=== PATIENT | female | born 1995 | race Caucasian/White ===

== ENCOUNTER 2019-04-03 13:39 | Inpatient (IN) ==
[2019-04-03] MEDS ORDERED: 0.9 % SODIUM CHLORIDE 1,000 ML IV ONE ×2 (14:54→14:56)
[2019-04-03] MEDS ORDERED: ONDANSETRON 4 MG/2 ML VIAL IV ONE (14:56)
--- NOTE | 2019-04-03 14:59 | Emergency Department Note ---
General Adult HPI - General Chief complaint: Cold/Flu Symptoms Stated complaint: cold/flu Time Seen by Provider: 04/03/19 14:49 Source: patient Mode of arrival: ambulatory Limitations: no limitations - History of Present Illness HPI Narrative: 23-year-old female patient presents emergency department chief complaint of worsening nausea, vomiting, and generalized malaise x3 days. Patient tells me she is vomited 67 times daily. She has not been able to keep anything down. She denies eating any foul or suspicious foods prior to symptom onset. She de nies any other sick contacts at home. She denies any fever, sweats, chills. She denies any satiation, runny nose, or cough. She denies any shortness of breath. She denies any retrosternal chest pain or palpitations. She admits to some generalized abdominal pain. She denies diarrhea or constipation. She denies any dysuria or hematuria. 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 This is resulted in her having a shunt in place. - Related Data Allergies Allergy/AdvReac Type Severity Reaction Status Date / Time No Known Drug Allergies Allergy Unverified 04/03/19 13:44 Review of Systems All systems ED: reviewed and negative except as stated. Past Medical History - Social History smoking status: Never smoker Physical Exam Limitations: no limitations General appearance: alert, in no apparent distress Head: atraumatic, normocephalic, other (Portion of the patient's shunt tubing can be palpated to the left occipital area.) Eye: Present: normal appearance, PERRL, EOMI. Absent: scleral icterus, conjunctival injection ENT: Present: normal oropharynx, mucous membranes dry, TM's normal bilaterally. Absent: nasal congestion Neck: Present: trachea midline. Absent: lymphadenopathy, thyromegaly Chest: Present: symmetric chest wall rise Respiratory: Present: normal lung sounds bilaterally. Absent: respiratory distress, wheezes, stridor, accessory muscle use, prolonged expiratory phase Cardiovascular: Present: normal rhythm, tachycardia. Absent: systolic murmur, diastolic murmur Abdominal: Present: soft, normal bowel sounds, other (Portion of the patient's shunt to be palpated to the left lower abdomen.). Absent: distention, tenderness, guarding, rebound, rigidity, organomegaly, mass Extremities: Present: normal inspection, full ROM. Absent: normal capillary refill Back: Present: full ROM. Absent: CVA tenderness (R), CVA tenderness (L) Neurological: Present: alert, oriented X3 Psychiatric: Present: normal affect, normal mood Skin: Present: warm, dry Course Course Narrative: Patient was brought into the emergency department and a trauma. Saline lock was established and laboratory studies were drawn. Normal saline was started at thousand milliliter bolus. Patient was given Zofran 4 mg IVP for the nausea. POC chemistry panel came back with sodium 130, potassium 6.8, CO2 9, BUN 25, glucose 694, calcium 1.16. With this in mind patient was given 10 units of regular insulin IV. Additional laboratory studies were ordered looking for DKA. Review of her laboratory studies show the following: WBC 30.1, hematocrit 45.7, granulocyte percent 87.5, granulocyte #26.29. CMP sodium 130, potassium 7.1, chloride 90, CO2 6, anion gap 34, BUN 24, creatinine 1.4, GFR 52, glucose 735, alkaline phosphatase 151, total protein 8.7, globulin 3.8. Beta hydroxybutyrate 7.65. ABG: pH 7.07, PCO2 12, PO2 122, HCO3 3.5. After reviewing this data patient is obvious DKA. I started an insulin drip at 0.1 units/kilogram/hour. Patient continues to rest comfortably in the emergency room gurney is no acute distress. She does continue to complain of dry mouth. Repeat chemistry panel showed sodium 137, potassium 5.7, chloride 110, CO2 11, BUN 26, and glucose 495. With all this in mind the hospitalist (Dr. Catalan) was contacted for admission to the hospital for DKA. He reviewed the patient's laboratory studies and consented to admit the patient to the hospital. At this time all further treatment decisions and modalities to be carried out by Dr. Catalan. Vital Signs Temperature 98.0 F 04/03/19 13:41 Pulse Rate 119 H 04/03/19 13:41 Respiratory Rate 18 04/03/19 13:41 Blood Pressure 103/65 04/03/19 13:41 Pulse Oximetry (%) 100 04/03/19 13:41 Temperature 98.0 F 04/03/19 13:41 Pulse Rate 104 H 04/03/19 18:58 Respiratory Rate 16 04/03/19 18:58 Blood Pressure 108/65 04/03/19 18:46 Pulse Oximetry (%) 98 04/03/19 18:58 Medical Decision Making - Lab Data Lab results reviewed: Yes I reviewed the patient's lab results. Result diagrams: 04/03/19 15:17 04/03/19 15:17 Lab Results 04/03/19 04/03/19 04/03/19 Range/Units 15:17 15:17 15:17 WBC 30.1 H* (4.50-11.00) K/mcL RBC 4.87 (3.59-5.38) M/mcL Hgb 14.2 (11.2-15.7) g/dL Hct 45.7 H (34.1-44.9) % POC Hct 49.0 H (36.0-48.0) % MCV 93.8 (80.0-100.0) fL MCH 29.2 (26.0-34.0) pg MCHC 31.1 (31.0-36.0) g/dL RDW 13.8 (11.5-14.5) % Plt Count 436 (140-440) K/mcL MPV 10.5 H (7.4-10.4) fL Gran % 87.5 H (38.0-78.0) % Lymph % (Auto) 6.2 L (15.5-49.0) % [place] % (Auto) 5.7 (1.0-12.0) % Eos % (Auto) 0.1 (0.0-7.0) % Baso % (Auto) 0.5 (0.0-2.0) % Gran # 26.29 H (1.80-8.00) K/mcL Lymph # (Auto) 1.87 (1.50-4.80) K/mcL [place] # (Auto) 1.72 H (0.10-0.90) K/mcL Eos # (Auto) 0.02 (0.00-0.70) K/mcL Baso # (Auto) 0.16 (0.00-0.30) K/mcL Differential Comment * VBG Lactic Acid (0.5-2.0) mmol/L POC Sodium 130 L (133-145) mmol/L Sodium 130 L (133-145) mmol/L POC Potassium 6.8 H* (3.3-5.1) mmol/L Potassium 7.1 H* (3.3-5.1) mmol/L POC Chloride 105 (96-108) mmol/L Chloride 90 L (96-108) mmol/L Carbon Dioxide 6 L* (22-30) mmol/L POC Total CO2 9 L* (22-30) mmol/L Anion Gap 34.0 H (8-16) POC BUN 25 H (6-20) mg/dl BUN 24 H (6-20) mg/dl Creatinine 1.4 H (0.6-1.1) mg/dl POC Creatinine 1.0 (0.6-1.1) mg/dl GFR Calculation 52 Glucose 735 H* (70-105) mg/dL POC Glucose 694 H* (70-105) mg/dL Calcium 10.1 (8.6-10.4) mg/dl POC WB Ioniz Calcium 1.16 (1.16-1.32) mmol/L Total Bilirubin 0.6 (0.0-1.0) mg/dL AST 18 (0-37) U/l ALT 15 (0-40) U/l Alkaline Phosphatase 151 H (39-117) U/L Total Protein 8.7 H (5.9-8.4) gm/dL Albumin 4.9 (3.2-5.2) gm/dL Globulin 3.8 H (2.2-3.7) gm/dL Albumin/Globulin Ratio 1.3 (1.0-2.3) Beta-Hydroxybutyrate (< 0.27) mmol/L 04/03/19 04/03/19 04/03/19 Range/Units 15:17 15:53 17:51 WBC (4.50-11.00) K/mcL RBC (3.59-5.38) M/mcL Hgb (11.2-15.7) g/dL Hct (34.1-44.9) % POC Hct 45.0 (36.0-48.0) % MCV (80.0-100.0) fL MCH (26.0-34.0) pg MCHC (31.0-36.0) g/dL RDW (11.5-14.5) % Plt Count (140-440) K/mcL MPV (7.4-10.4) fL Gran % (38.0-78.0) % Lymph % (Auto) (15.5-49.0) % [place] % (Auto) (1.0-12.0) % Eos % (Auto) (0.0-7.0) % Baso % (Auto) (0.0-2.0) % Gran # (1.80-8.00) K/mcL Lymph # (Auto) (1.50-4.80) K/mcL [place] # (Auto) (0.10-0.90) K/mcL Eos # (Auto) (0.00-0.70) K/mcL Baso # (Auto) (0.00-0.30) K/mcL Differential Comment VBG Lactic Acid 7.0 H* (0.5-2.0) mmol/L POC Sodium 137 (133-145) mmol/L Sodium (133-145) mmol/L POC Potassium 5.7 H (3.3-5.1) mmol/L Potassium (3.3-5.1) mmol/L POC Chloride 110 H (96-108) mmol/L Chloride (96-108) mmol/L Carbon Dioxide (22-30) mmol/L POC Total CO2 11 L (22-30) mmol/L Anion Gap (8-16) POC BUN 26 H (6-20) mg/dl BUN (6-20) mg/dl Creatinine (0.6-1.1) mg/dl POC Creatinine 0.9 (0.6-1.1) mg/dl GFR Calculation Glucose (70-105) mg/dL POC Glucose 495 H* (70-105) mg/dL Calcium (8.6-10.4) mg/dl POC WB Ioniz Calcium 1.19 (1.16-1.32) mmol/L Total Bilirubin (0.0-1.0) mg/dL AST (0-37) U/l ALT (0-40) U/l Alkaline Phosphatase (39-117) U/L Total Protein (5.9-8.4) gm/dL Albumin (3.2-5.2) gm/dL Globulin (2.2-3.7) gm/dL Albumin/Globulin Ratio (1.0-2.3) Beta-Hydroxybutyrate 7.65 H (< 0.27) mmol/L Disposition Pt seen by [employer]/[facility] only: No (Dr. Kothari) Clinical Impression: DKA (diabetic ketoacidoses) Qualifiers: Diabetes mellitus type: type 1 Diabetes mellitus complication detail: without coma Qualified Code(s): E10.10 - Type 1 diabetes mellitus with ketoacidosis without coma Disposition: Xfer As Inpt ([facility]) Condition: Fair Additional Instructions: Patient is being admitted to the hospital under the care of Dr. Catalan. All further treatment decisions and modalities to be carried out by Dr. Catalan. Referrals: Naina Yadav MD [Primary Care Provider] -
[2019-04-03] MEDS ORDERED: INSULIN REGULAR, HUMAN 1 UNIT/0.01 ML UNIT IV ONE (15:37)
[2019-04-03 15:40] LABS: POC Blood Urea Nitrogen 25 mg/dl (6-20); POC CO2 9 mmol/L (22-30); POC Calcium, Ionized 1.16 mmol/L (1.16-1.32); POC Chloride 105 mmol/L (96-108); POC Glucose, Random 694 mg/dL (70-105); POC Potassium 6.8 mmol/L (3.3-5.1); POC Sodium 130 mmol/L (133-145)
[2019-04-03 16:14] LABS: ALT/SGPT 15 U/l (0-40); AST/SGOT 18 U/l (0-37); Albumin 4.9 gm/dL (3.2-5.2); Albumin/Globulin Ratio 1.3 (1.0-2.3); Alkaline Phosphatase 151 U/L (39-117); Bilirubin,Total 0.6 mg/dL (0.0-1.0); Blood Urea Nitrogen 24 mg/dl (6-20); Calcium 10.1 mg/dl (8.6-10.4); Globulin 3.8 gm/dL (2.2-3.7); Glomerular Filtration Rate 52
[2019-04-03 16:15] LABS: Basophils # (Auto) 0.16 K/mcL (0.00-0.30); Basophils % (Auto) 0.5 % (0.0-2.0); Eosinophils # (Auto) 0.02 K/mcL (0.00-0.70); Eosinophils % (Auto) 0.1 % (0.0-7.0); Granulocytes % (Auto) 87.5 % (38.0-78.0); Hematocrit 45.7 % (34.1-44.9); Hemoglobin 14.2 g/dL (11.2-15.7); Lymphocytes # (Auto) 1.87 K/mcL (1.50-4.80); Lymphocytes % (Auto) 6.2 % (15.5-49.0); Mean Cell Volume 93.8 fL (80.0-100.0); Mean Corpuscular HGB Conc 31.1 g/dL (31.0-36.0); Mean Platelet Volume 10.5 fL (7.4-10.4); Monocytes # (Auto) 1.72 K/mcL (0.10-0.90); Monocytes % (Auto) 5.7 % (1.0-12.0); Platelet Count 436 K/mcL (140-440); RBC 4.87 M/mcL (3.59-5.38); Red Cell Distribution Width 13.8 % (11.5-14.5); WBC 30.1 K/mcL (4.50-11.00)
[2019-04-03 16:16] LABS: Carbon Dioxide 6 mmol/L (22-30); Chloride 90 mmol/L (96-108); Glucose 735 mg/dL (70-105)
[2019-04-03] MEDS ORDERED: INSULIN REGULAR, HUMAN 50 UNIT in 0.9 % SODIUM CHLORIDE 99.5 ML IV SCH (16:30)
[2019-04-03 18:01] LABS: POC Blood Urea Nitrogen 26 mg/dl (6-20); POC CO2 11 mmol/L (22-30); POC Calcium, Ionized 1.19 mmol/L (1.16-1.32); POC Chloride 110 mmol/L (96-108); POC Creatinine 0.9 mg/dl (0.6-1.1); POC Glucose, Random 495 mg/dL (70-105); POC Potassium 5.7 mmol/L (3.3-5.1); POC Sodium 137 mmol/L (133-145)
--- NOTE | 2019-04-03 18:09 | Internal Med History&Physical ---
Medical - H&P: [facility] Patient information: Note initiated : 04/03/19 at 6:06 pm Service Date, if different from initiated Date: [] Patient: Yue Lucas a 23 y/o F admitted on for cold/flu. Chief Complaint: [] Chief complaint: Nausea vomiting History of present illness: Ms. 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 Patient over the last few days has been experiencing nausea vomiting. Symptoms were associated with loss of ap petite/weakness dizziness. Patient continued to work with the symptoms as you may need to be got flu. Her blood sugars have been erratic recently. Her symptoms progressed today to the point she could barely eat or drink anything due to persistent nausea vomiting prompting her to drive to the ER. Initial work-up was consistent with severe DKA with a pH of 7 bicarb 6, white count 30,000 lactic acid 7 and potassium 7.1, initial blood sugars 694 with anion gap 34. Patient was promptly started on DKA protocol with crystalloids and insulin drip Subsequently hospitalist service was consulted At the time evaluation patient is alert and able to answer most questions, she is hyperventilating. Remarkably tachycardic and complains of dry lips. Her nausea has since improved. She was able to endorse history as above. She denies recent fever, diarrhea, rash, headache photophobia or chills. 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 No smoking or alcoholism Medical - H&P: Meds Home Medications Medication Instructions Recorded Confirmed Type Doxycycline Hyclate 100 mg PO BID 04/03/19 04/03/19 History Insulin Aspart [Novolog] 52 - 70 units SQ DAILY 04/03/19 04/03/19 History Insulin Degludec [Tresiba 43 unit SQ DAILY 04/03/19 04/03/19 History Flextouch U-100] Insulin Regular, Human [Afrezza] 4 unit IH PRN PRN 04/03/19 04/03/19 History Loratadine [Allerclear] 10 mg PO DAILY 04/03/19 04/03/19 History Minocycline [Minocin] 100 mg PO BID 04/03/19 04/03/19 History l-Norgest/E.estradiol-E.estrad 1 tab PO DAILY 04/03/19 04/03/19 History [Ashlyna 0.15-0.03-0.01 mg Tab] Allergies Allergy/AdvReac Type Severity Reaction Status Date / Time No Known Drug Allergies Allergy Unverified 04/03/19 13:44 Medical - H&P: Exam - Constitutional Vitals: Temp Pulse Resp BP Pulse Ox 98.0 F 124 H 22 100/80 99 04/03/19 13:41 04/03/19 16:34 04/03/19 16:34 04/03/19 16:23 04/03/19 16:34 General appearance: no acute distress Exam: Head normocephalic Oral cavity dry Facial acne Eye movement symmetrical No ear nose discharge Neck lymphadenopathy S1-S2 tachycardia no murmur Diminished breath sounds bases Abdomen soft nontender nondistended Lower extremity no sinus clubbing no joint swelling Dry skin, no lesions Psych alert cooperative Neuro nonfocal Medical - H&P: Reslt - Labs CBC & Chem 7: 04/04/19 04:18 04/04/19 04:18 Labs: Short CBC 04/03/19 Range/Units 15:17 WBC 30.1 H* (4.50-11.00) K/mcL Hgb 14.2 (11.2-15.7) g/dL Hct 45.7 H (34.1-44.9) % Plt Count 436 (140-440) K/mcL BMP 04/03/19 15:17 Sodium 130 L Potassium 7.1 H* Chloride 90 L Carbon Dioxide 6 L* BUN 24 H Creatinine 1.4 H Glucose 735 H* Calcium 10.1 Liver Function 04/03/19 Range/Units 15:17 Total Bilirubin 0.6 (0.0-1.0) mg/dL AST 18 (0-37) U/l ALT 15 (0-40) U/l Alkaline Phosphatase 151 H (39-117) U/L Albumin 4.9 (3.2-5.2) gm/dL Medical - H&P: A/P (1) DKA (diabetic ketoacidoses) Current visit: Yes Status: Acute * DKA-patient critically ill with pH 7 anion gap 34. Continue management per guidelines with aggressive crystalloids and insulin drip. Continue serial blood gas/electrolyte panel. ICU admit * Hyperkalemia secondary to metabolic acidosis. Aggressive potassium replacement once potassium less than 5.5. * Sepsis with white count over 30,000 no clear source. Lactic acid 7. Blood cultures/antibiotic coverage and aggressive source evaluation * Type 1 diabetes-once DKA resolved start home regime including basal prandial insulin/CC diet * Full code * Prophylaxis heparin Plan * ICU admit * DKA management per protocol * Aggressive electrolyte replacement * Keep n.p.o. - Narrative A/P Narrative: Critical care time spent in excess of 45 minutes on management of DKA/hyperkalemia
[2019-04-03] MEDS ORDERED: POTASSIUM PHOSPHATE 20 MEQ in DEXTROSE 5% IN WATER 250 ML IV ONE (20:21)
[2019-04-03] MEDS ORDERED: ONDANSETRON 4 MG ODT TABLET SL PRN (20:21)
[2019-04-03] MEDS ORDERED: POTASSIUM CHLORIDE 40 MEQ in DEXTROSE 5% IN WATER 500 ML IV PRN (20:21)
[2019-04-03] MEDS ORDERED: POTASSIUM CHLORIDE 20 MEQ PACKET PO PRN (20:21)
[2019-04-03] MEDS ORDERED: ONDANSETRON 4 MG/2 ML VIAL IV PRN (20:21)
[2019-04-03] MEDS ORDERED: POLYETHYLENE GLYCOL 3350 17 GM PACKET PO PRN (20:21)
[2019-04-03] MEDS ORDERED: POTASSIUM CHLORIDE 20 MEQ in DEXTROSE 5% IN WATER 250 ML IV ONE (20:21)
[2019-04-03] MEDS ORDERED: ACETAMINOPHEN 650 MG/65 ML BOTTLE IV PRN (20:21)
[2019-04-03] MEDS ORDERED: 0.45 % SODIUM CHLORIDE 1,000 ML IV SCH (20:21)
[2019-04-03] MEDS ORDERED: ACETAMINOPHEN 325 MG TABLET PO PRN (20:21)
[2019-04-03] MEDS ORDERED: BISACODYL 10 MG SUPP.RECT PR PRN (20:21)
[2019-04-03] MEDS ORDERED: DEXTROSE 50% 50 ML SYRINGE IV ONE (20:21)
[2019-04-03 21:16] LABS: ABG Methemoglobin 0.3 % (0.4-1.5); Total Hemoglobin 13.2 gm/dL (12.0-15.0); VBG Base Excess -17.3 (-2.0-2.0); VBG HCO3 9.8 mmol/L (24.0-28.0); VBG Oxygen Saturation 79.8 % (40.0-70.0); VBG PH 7.16 U (7.32-7.42); VBG PO2 57 mmHg (25-40); VBG Total CO2 10.7 mmol/L (25.0-29.0)
[2019-04-03] MEDS ORDERED: POTASSIUM CHLORIDE 20 MEQ/10 ML VIAL IV ONE ×2 (21:20→22:42)
[2019-04-03 21:40] LABS: Bilirubin,Direct < 0.2 mg/dL (0.0-0.3)
[2019-04-03] MEDS: 0.9 % SODIUM CHLORIDE 1,000 ML IV SCH (21:43)
[2019-04-03 21:47] LABS: ALT/SGPT 14 U/l (0-40); AST/SGOT 19 U/l (0-37); Albumin 4.3 gm/dL (3.2-5.2); Albumin/Globulin Ratio 1.4 (1.0-2.3); Alkaline Phosphatase 125 U/L (39-117); Bilirubin,Total 0.3 mg/dL (0.0-1.0); Blood Urea Nitrogen 20 mg/dl (6-20); Calcium 8.9 mg/dl (8.6-10.4); Carbon Dioxide 7 mmol/L (22-30); Chloride 100 mmol/L (96-108); Glomerular Filtration Rate 70; Glucose 339 mg/dL (70-105); Lactate Dehydrogenase 231 U/L (94-250); Phosphorous 3.1 mg/dL (2.7-4.5); Triglycerides 82 mg/dl (<150); Uric Acid 6.1 mg/dL (2.5-8.0)
[2019-04-03] MEDS ORDERED: INSULIN REGULAR, HUMAN 1 UNIT/0.01 ML UNIT ONE (22:29)
[2019-04-03] MEDS: INSULIN REGULAR, HUMAN 50 UNIT in 0.9 % SODIUM CHLORIDE 99.5 ML IV SCH (22:36)
[2019-04-03] MEDS: DEXTROSE 5%-1/2NS 1,000 ML IV SCH ×2 (22:44→23:02)
[2019-04-03] MEDS: DOCUSATE SODIUM 100 MG CAPSULE PO SCH (22:45)
[2019-04-03] MEDS: SENNOSIDES/DOCUSATE SODIUM 1 TAB TABLET PO SCH (22:45)
[2019-04-03] MEDS: HEPARIN 5,000 UNIT/ML VIAL SQ SCH (23:04)
[2019-04-03] MEDS: CYANOCOBALAMIN (VITAMIN B-12) 500 MCG TABLET PO SCH (23:04)
[2019-04-03] MEDS: 0.9 % SODIUM CHLORIDE 10 ML SYRINGE IV SCH (23:05)
[2019-04-03] MEDS ORDERED: POTASSIUM PHOSPHATE 66 MEQ/15 ML VIAL IV ONE (23:20)
[2019-04-03] MEDS: PIPERACILLIN SODIUM/TAZOBACTAM 3.375 GM in DEXTROSE 5% IN WATER 50 ML IV SCH (23:40)
[2019-04-04 00:51] LABS: ABG Methemoglobin 0.2 % (0.4-1.5); Total Hemoglobin 11.3 gm/dL (12.0-15.0); VBG Base Excess -8.5 (-2.0-2.0); VBG HCO3 14.4 mmol/L (24.0-28.0); VBG Oxygen Saturation 94.8 % (40.0-70.0); VBG PCO2 22.9 mmHg (41.0-51.0); VBG PH 7.42 U (7.32-7.42); VBG PO2 139 mmHg (25-40); VBG Total CO2 15.1 mmol/L (25.0-29.0)
[2019-04-04] MEDS ORDERED: NOREPINEPHRINE BITARTRATE 16 MG in 0.9 % SODIUM CHLORIDE 234 ML IV PRN (01:12)
[2019-04-04 01:13] LABS: ALT/SGPT 12 U/l (0-40); AST/SGOT 13 U/l (0-37); Albumin 3.8 gm/dL (3.2-5.2); Albumin/Globulin Ratio 1.5 (1.0-2.3); Alkaline Phosphatase 102 U/L (39-117); Bilirubin,Total 0.3 mg/dL (0.0-1.0); Blood Urea Nitrogen 15 mg/dl (6-20); Calcium 8.6 mg/dl (8.6-10.4); Carbon Dioxide 14 mmol/L (22-30); Chloride 104 mmol/L (96-108); Globulin 2.5 gm/dL (2.2-3.7); Glomerular Filtration Rate 89; Glucose 198 mg/dL (70-105)
[2019-04-04] MEDS: 0.9 % SODIUM CHLORIDE 250 ML IV SCH ×3 (02:26→17:06)
[2019-04-04] MEDS ORDERED: INSULIN REGULAR, HUMAN 1 UNIT/0.01 ML UNIT ONE (03:07)
[2019-04-04] MEDS: INSULIN REGULAR, HUMAN 50 UNIT in 0.9 % SODIUM CHLORIDE 99.5 ML IV SCH ×2 (03:10→10:07)
[2019-04-04] MEDS: DEXTROSE 5%-1/2NS 1,000 ML IV SCH ×4 (04:07→21:08)
[2019-04-04 04:45] LABS: ABG Methemoglobin 0.1 % (0.4-1.5); Total Hemoglobin 11.5 gm/dL (12.0-15.0); VBG Base Excess -9.7 (-2.0-2.0); VBG HCO3 14.5 mmol/L (24.0-28.0); VBG Oxygen Saturation 86.3 % (40.0-70.0); VBG PCO2 27.3 mmHg (41.0-51.0); VBG PH 7.34 U (7.32-7.42); VBG PO2 57 mmHg (25-40); VBG Total CO2 15.4 mmol/L (25.0-29.0)
[2019-04-04 04:47] LABS: Hematocrit 36.7 % (34.1-44.9); Hemoglobin 12.1 g/dL (11.2-15.7); Mean Cell Volume 88.6 fL (80.0-100.0); Mean Platelet Volume 9.3 fL (7.4-10.4); Platelet Count 377 K/mcL (140-440); RBC 4.14 M/mcL (3.59-5.38); Red Cell Distribution Width 13.9 % (11.5-14.5); WBC 29.3 K/mcL (4.50-11.00)
[2019-04-04] MEDS: PIPERACILLIN SODIUM/TAZOBACTAM 3.375 GM in DEXTROSE 5% IN WATER 50 ML IV SCH ×4 (04:48→22:43)
[2019-04-04 05:04] LABS: ALT/SGPT 13 U/l (0-40); AST/SGOT 15 U/l (0-37); Albumin 3.8 gm/dL (3.2-5.2); Albumin/Globulin Ratio 1.4 (1.0-2.3); Alkaline Phosphatase 105 U/L (39-117); Bilirubin,Direct < 0.2 mg/dL (0.0-0.3); Bilirubin,Total 0.5 mg/dL (0.0-1.0); Blood Urea Nitrogen 15 mg/dl (6-20); Calcium 8.8 mg/dl (8.6-10.4); Carbon Dioxide 14 mmol/L (22-30); Chloride 107 mmol/L (96-108); Globulin 2.8 gm/dL (2.2-3.7); Glomerular Filtration Rate 89; Glucose 206 mg/dL (70-105); Lactate Dehydrogenase 156 U/L (94-250); Phosphorous 2.9 mg/dL (2.7-4.5); Triglycerides 63 mg/dl (<150); Uric Acid 4.8 mg/dL (2.5-8.0)
[2019-04-04 05:30] LABS: Lymphocytes % 13 % (15-49); Monocytes % (Manual) 7 % (1-12); Platelet Estimate NORMAL (NORMAL); RBC Morphology NORMAL (NORMAL); Segmented Neutrophils % 80 % (38-78)
[2019-04-04] MEDS: 0.9 % SODIUM CHLORIDE 10 ML SYRINGE IV SCH ×3 (06:02→21:09)
--- NOTE | 2019-04-04 07:57 | Internal Med Progress Note ---
Medical - PN: Subj Patient information: Note initiated : 04/04/19 at 7:55 am Service Date, if different from initiated Date: [] Patient: Yue Lucas a 23 y/o F admitted on 04/03/19 for cold/flu. Chief Complaint: [] Interval history: Ms. 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 Patient over the last few days has been experiencing nausea vomiting. Symptoms were associated with loss of appetite/weakness dizziness. Patient continued to work with the symptoms as you may need to be got flu. Her blood sugars have been erratic recently. Her symptoms progressed today to the point she could barely eat or drink anything due to persistent nausea vomiting prompting her to drive to the ER. Initial work-up was consistent with severe DKA with a pH of 7 bicarb 6, white count 30,000 lactic acid 7 and potassium 7.1, initial blood sugars 694 with anion gap 34. Patient was promptly started on DKA protocol with crystalloids and insulin drip Subsequently hospitalist service was consulted At the time evaluation patient is alert and able to answer most questions, she is hyperventilating. Remarkably tachycardic and complains of dry lips. Her nausea has since improved. She was able to endorse history as above. She denies recent fever, diarrhea, rash, headache photophobia or chills. She further denies cough, bleeding 04/04-patient doing better. Improved anion gap. Bicarb at 14. pH 7.34. On insulin drip. Potassium down to 5.3. White count at 29,000. No obvious source. Cultures pending. Continue management of DKA per protocol. Improved prognosis. - Constitutional Vitals: Vital Signs Temp Pulse Resp BP Pulse Ox 98.9 F 94 H 19 118/54 100 04/04/19 04:01 04/04/19 06:13 04/04/19 06:13 04/04/19 06:01 04/04/19 06:13 Period Temp Pulse Resp BP Sys/Brooke Pulse Ox Last 24 Hr 98.0 F-99.1 F 89-124 14-26 80-128/43-96 97-100 Intake and Output 04/03/19 04/04/19 04/04/19 21:59 05:59 13:59 Intake Total 20575455 116 Output Total 850 900 Balance 2057 1069.5455 -784 Weight 165 lb 9.6 oz Intake & Output: Intake & Output 04/03/19 04/04/19 04/04/19 21:59 05:59 13:59 Intake Total 20575455 116 Output Total 850 900 Balance 2057 1069.5455 -784 Weight 165 lb 9.6 oz Intake: IV 2057 116 Sodium Chloride 0.45% 1,000 ml 165 @ 125 mls/hr IV .Q8H ALYSHA Rx#: [id number] Sodium Chloride 0.9% 1,000 ml @ 2000 1000 Wide Open IV BOLUS ALYSHA Rx#: [id number] HumuLIN R 50 UNIT In Sodium 58 190 36 Chloride 0.9% 99.5 ml @ 0.1 UNIT/KG/HR 16.329 mls/hr IV DUR ALYSHA Rx#:[id number] Levophed 16 mg In Sodium 30 Chloride 0.9% 234 ml @ 10 MCG/ MIN 9.375 mls/hr IV Q24HP PRN Rx#:[id number] Zosyn 3.375 gm In Dextrose 5% 50 50 in Water 50 ml @ 100 mls/hr IV Q6H ALYSHA Rx#:[id number] Potassium Chloride 20 Meq In 260 Dextrose 5% in Water 250 ml @ 130 mls/hr IV ONCE ONE Rx#: [id number] Potassium Phosphate 20 Meq In 254.5455 Dextrose 5% in Water 250 ml @ 127.273 mls/hr IV ONCE ONE Rx#: [id number] Output: Void Amount 850 900 Other: Urine Appearance Clear General appearance: no acute distress Exam: Resting comfortably No telemetry events except for tachycardia Nondistended nontender abdomen Nonlabored breathing Medical - PN: Obj Da - Labs CBC & Chem 7: 04/04/19 04:18 04/04/19 04:18 Labs: Abnormal Lab Results 04/04/19 04/04/19 04/04/19 04:18 04:18 04:18 WBC 29.3 H Hct POC Hct MPV Gran % Lymph % (Auto) Gran # [place] # (Auto) Seg Neutrophils % 80 H Lymphocytes % 13 L ABG Methemoglobin VBG pH VBG pCO2 VBG pO2 VBG HCO3 VBG Total CO2 VBG O2 Saturation VBG Base Excess VBG Lactic Acid Carboxyhemoglobin Total Hemoglobin POC Sodium Sodium POC Potassium Potassium POC Chloride Chloride Carbon Dioxide 14 L POC Total CO2 Anion Gap POC BUN BUN Creatinine Glucose 206 H POC Glucose Alkaline Phosphatase Total Protein Globulin Beta-Hydroxybutyrate 1.20 H 04/04/19 04/04/19 04/04/19 04:18 00:30 00:30 WBC Hct POC Hct MPV Gran % Lymph % (Auto) Gran # [place] # (Auto) Seg Neutrophils % Lymphocytes % ABG Methemoglobin 0.1 L 0.2 L VBG pH VBG pCO2 27.3 L 22.9 L VBG pO2 57 H 139 H VBG HCO3 14.5 L 14.4 L VBG Total CO2 15.4 L 15.1 L VBG O2 Saturation 86.3 H 94.8 H VBG Base Excess -9.7 L -8.5 L VBG Lactic Acid Carboxyhemoglobin 4.1 H 4.2 H Total Hemoglobin 11.5 L 11.3 L POC Sodium Sodium 132 L POC Potassium Potassium POC Chloride Chloride Carbon Dioxide 14 L POC Total CO2 Anion Gap POC BUN BUN Creatinine Glucose 198 H POC Glucose Alkaline Phosphatase Total Protein Globulin Beta-Hydroxybutyrate 04/03/19 04/03/19 04/03/19 20:39 20:39 17:51 WBC Hct POC Hct MPV Gran % Lymph % (Auto) Gran # [place] # (Auto) Seg Neutrophils % Lymphocytes % ABG Methemoglobin 0.3 L VBG pH 7.16 L* VBG pCO2 28.0 L VBG pO2 57 H VBG HCO3 9.8 L* VBG Total CO2 10.7 L* VBG O2 Saturation 79.8 H VBG Base Excess -17.3 L VBG Lactic Acid Carboxyhemoglobin 6.4 H Total Hemoglobin POC Sodium Sodium POC Potassium 5.7 H Potassium 5.3 H POC Chloride 110 H Chloride Carbon Dioxide 7 L* POC Total CO2 11 L Anion Gap 26.0 H POC BUN 26 H BUN Creatinine Glucose 339 H POC Glucose 495 H* Alkaline Phosphatase 125 H Total Protein Globulin Beta-Hydroxybutyrate 04/03/19 04/03/19 04/03/19 15:53 15:17 15:17 WBC Hct POC Hct MPV Gran % Lymph % (Auto) Gran # [place] # (Auto) Seg Neutrophils % Lymphocytes % ABG Methemoglobin VBG pH VBG pCO2 VBG pO2 VBG HCO3 VBG Total CO2 VBG O2 Saturation VBG Base Excess VBG Lactic Acid 7.0 H* Carboxyhemoglobin Total Hemoglobin POC Sodium Sodium 130 L POC Potassium Potassium 7.1 H* POC Chloride Chloride 90 L Carbon Dioxide 6 L* POC Total CO2 Anion Gap 34.0 H POC BUN BUN 24 H Creatinine 1.4 H Glucose 735 H* POC Glucose Alkaline Phosphatase 151 H Total Protein 8.7 H Globulin 3.8 H Beta-Hydroxybutyrate 7.65 H 04/03/19 04/03/19 15:17 15:17 WBC 30.1 H* Hct 45.7 H POC Hct 49.0 H MPV 10.5 H Gran % 87.5 H Lymph % (Auto) 6.2 L Gran # 26.29 H [place] # (Auto) 1.72 H Seg Neutrophils % Lymphocytes % ABG Methemoglobin VBG pH VBG pCO2 VBG pO2 VBG HCO3 VBG Total CO2 VBG O2 Saturation VBG Base Excess VBG Lactic Acid Carboxyhemoglobin Total Hemoglobin POC Sodium 130 L Sodium POC Potassium 6.8 H* Potassium POC Chloride Chloride Carbon Dioxide POC Total CO2 9 L* Anion Gap POC BUN 25 H BUN Creatinine Glucose POC Glucose 694 H* Alkaline Phosphatase Total Protein Globulin Beta-Hydroxybutyrate Meds: Medications Acetaminophen (Tylenol) 650 mg PO Q4-6HP PRN; Protocol PRN Reason: Per Pain Protocol/Fever > 101 Bisacodyl (Dulcolax) 10 mg RI Q2-3DAYS PRN PRN Reason: Constipation Cyanocobalamin (Vitamin B-12) 1,000 mcg PO BID [facility] Stop: 04/08/19 09:01 Last Admin: 04/03/19 23:04 Dose: 1,000 mcg Documented by: Diagnostic Test (Pha) (Accu-Chek) 1 each FS Q1 [facility] Last Admin: 04/04/19 07:33 Dose: 1 each Documented by: Docusate Sodium (Colace) 100 mg PO BID [facility] Last Admin: 04/03/19 22:45 Dose: Not Given Documented by: Folic Acid (Folic Acid) 1 mg PO DAILY [facility]1983 Heparin Sodium (Porcine) (Heparin) 5,000 unit SQ Q12 [facility] Last Admin: 04/03/19 23:04 Dose: 5,000 unit Documented by: Insulin Human Regular 50 unit/ (Sodium Chloride) 100 mls @ 16.329 mls/hr IV DUR [facility], [facility]; Protocol Last Titration: 04/04/19 07:05 Dose: 0.02 unit/kg/hr, 4 mls/hr Documented by: Sodium Chloride (Sodium Chloride 0.9%) 1,000 mls @ 0 mls/hr IV BOLUS [facility] Last Infusion: 04/03/19 23:02 Dose: Infused Documented by: Acetaminophen (Ofirmev) 650 mg in 65 mls @ 130 mls/hr IV Q6HP PRN; Protocol PRN Reason: Per Pain Protocol/Fever > 101 Magnesium Sulfate (Magnesium Sulfate) 2 gm in 50 mls @ 50 mls/hr IV UD PRN PRN Reason: MG = or < 1.7 Potassium Chloride 40 meq/ (Dextrose) 520 mls @ 130 mls/hr IV UD PRN PRN Reason: K+ = or < 3.5 Piperacillin Sod/Tazobactam (Sod 3.375 gm/ Dextrose) 50 mls @ 100 mls/hr IV Q6H [facility]; Protocol Last Infusion: 04/04/19 06:15 Dose: Infused Documented by: Dextrose/Sodium Chloride (Dextrose 5%-1/2ns Iv Solution) 1,000 mls @ 125 mls/hr IV .Q8H [facility] Last Admin: 04/04/19 04:07 Dose: Not Given Documented by: Norepinephrine Bitartrate 16 (mg/ Sodium Chloride) 250 mls @ 9.375 mls/hr IV Q24HP PRN; Protocol PRN Reason: Hypotension Last Titration: 04/04/19 07:15 Dose: 7 mcg/min, 6.563 mls/hr Documented by: Sodium Chloride (Sodium Chloride 0.9%) 250 mls @ 20 mls/hr IV .[id number] [facility] Last Admin: 04/04/19 03:15 Dose: 20 mls/hr Documented by: Iron Carb/Multivit/[place]/Folic Acid (Multivitamin W/Minerals) 1 tab PO DAILY [facility] Mupirocin (Bactroban Oint 2%) 1 dose NARES BID [facility], [facility]1983 Ondansetron HCl (Zofran Odt) 4 mg SL Q4-6HP PRN; Protocol PRN Reason: Nausea And Vomiting Ondansetron HCl (Zofran) 4 mg IV Q4-6HP PRN; Protocol PRN Reason: Nausea And Vomiting Polyethylene Glycol (Miralax) 17 gm PO DAILYP PRN PRN Reason: Constipation Potassium Chloride (Klor-Con) 40 meq PO DAILYP PRN PRN Reason: K+ < 3.5 Senna/Docusate Sodium (Senna Plus Tablet) 1 tab PO HS [facility] Last Admin: 04/03/19 22:45 Dose: Not Given Documented by: Sodium Chloride (Saline Flush) 10 ml IV Q8 [facility] Last Admin: 04/04/19 06:02 Dose: 10 ml Documented by: Thiamine HCl (Vitamin B1) 100 mg PO DAILY ALYSHA - ABG Interpretation ABG results: 04/03/19 04/04/19 04/04/19 20:39 00:30 04:18 ABG Methemoglobin 0.3 L 0.2 L 0.1 L VBG pH 7.16 L* 7.42 7.34 VBG pCO2 28.0 L 22.9 L 27.3 L VBG pO2 57 H 139 H 57 H VBG HCO3 9.8 L* 14.4 L 14.5 L VBG Total CO2 10.7 L* 15.1 L 15.4 L VBG O2 Saturation 79.8 H 94.8 H 86.3 H VBG Base Excess -17.3 L -8.5 L -9.7 L Medical - PN: A/P - Time Spent With Patient Total time spent is greater than 50% in coordination of care (as documented) at patient's floor/unit and/or counseling patient: Greater than 35 minutes (Critical care time) (1) DKA (diabetic ketoacidoses) Status: Acute Assessment and plan: * DKA-clinical improvement noted with management protocol. pH 7.34. Continue insulin drip. * Multiple electrolyte neurology continue replacement as indicated * Sepsis with elevated white count over 30,000 , continue source evaluation. Downtrending white count. De-escalate antibiotics if no obvious source. * Type 1 diabetes-we will start basal prandial insulin/CC diet once DKA resolves * Full code * Prophylaxis heparin Plan * Continue ICU care * Continue DKA management per protocol * Continue aggressive electrolyte replacement Current Visit: Yes
[2019-04-04] MEDS: DOCUSATE SODIUM 100 MG CAPSULE PO SCH ×2 (08:27→21:08)
[2019-04-04] MEDS: FOLIC ACID 1 MG TABLET PO SCH (08:27)
[2019-04-04] MEDS: HEPARIN 5,000 UNIT/ML VIAL SQ SCH ×2 (08:27→21:07)
[2019-04-04] MEDS: MUPIROCIN OINT 2% 22GM NARES SCH ×2 (08:27→21:08)
[2019-04-04] MEDS: MULTIVIT,THER IRON,CA,FA & MIN 1 TABLET PO SCH (08:28)
[2019-04-04] MEDS: CYANOCOBALAMIN (VITAMIN B-12) 500 MCG TABLET PO SCH ×2 (08:28→21:07)
[2019-04-04] MEDS: THIAMINE 100 MG TABLET PO SCH (08:28)
--- NOTE | 2019-04-04 08:37 | Emergency Department Note ---
ED Note Addendum Note Addendum: I saw this patient with Pawel Lopez PA-C. I visited the patient myself as well as discussed her management with Pawel. I agree with his evaluation management and documentation. I wholeheartedly agree with the decision to admit
[2019-04-04] MEDS ORDERED: VANCOMYCIN PER PHARMACY IV SCH (10:30)
[2019-04-04] MEDS: VANCOMYCIN 1,000 MG in 0.9 % SODIUM CHLORIDE 250 ML IV SCH ×2 (11:23→21:08)
[2019-04-04 12:42] LABS: Blood Urea Nitrogen 11 mg/dl (6-20); Calcium 8.4 mg/dl (8.6-10.4); Carbon Dioxide 15 mmol/L (22-30); Chloride 107 mmol/L (96-108); Glomerular Filtration Rate 89; Glucose 178 mg/dL (70-105)
[2019-04-04] MEDS: MAGNESIUM SULFATE 2 GM/50 ML BAG IV PRN (13:09)
[2019-04-04 15:35] LABS: ALT/SGPT 11 U/l (0-40); AST/SGOT 11 U/l (0-37); Albumin 3.6 gm/dL (3.2-5.2); Albumin/Globulin Ratio 1.6 (1.0-2.3); Alkaline Phosphatase 92 U/L (39-117); Bilirubin,Direct < 0.2 mg/dL (0.0-0.3); Bilirubin,Total 0.5 mg/dL (0.0-1.0); Blood Urea Nitrogen 10 mg/dl (6-20); Calcium 8.6 mg/dl (8.6-10.4); Carbon Dioxide 14 mmol/L (22-30); Chloride 106 mmol/L (96-108); Globulin 2.2 gm/dL (2.2-3.7); Glomerular Filtration Rate 79; Glucose 179 mg/dL (70-105); Lactate Dehydrogenase 121 U/L (94-250); Phosphorous 2.6 mg/dL (2.7-4.5); Triglycerides 41 mg/dl (<150); Uric Acid 3.4 mg/dL (2.5-8.0)
[2019-04-04 21:00] LABS: Bilirubin,Direct < 0.2 mg/dL (0.0-0.3); Chloride 103 mmol/L (96-108)
[2019-04-04 21:01] LABS: ALT/SGPT 12 U/l (0-40); AST/SGOT 15 U/l (0-37); Albumin 4.1 gm/dL (3.2-5.2); Albumin/Globulin Ratio 1.7 (1.0-2.3); Alkaline Phosphatase 112 U/L (39-117); Bilirubin,Total 0.8 mg/dL (0.0-1.0); Blood Urea Nitrogen 8 mg/dl (6-20); Calcium 8.7 mg/dl (8.6-10.4); Carbon Dioxide 15 mmol/L (22-30); Globulin 2.4 gm/dL (2.2-3.7); Glomerular Filtration Rate 79; Glucose 216 mg/dL (70-105); Lactate Dehydrogenase 198 U/L (94-250); Phosphorous 1.8 mg/dL (2.7-4.5); Triglycerides 72 mg/dl (<150)
[2019-04-04] MEDS: SENNOSIDES/DOCUSATE SODIUM 1 TAB TABLET PO SCH (21:07)
[2019-04-04] MEDS: 0.9 % SODIUM CHLORIDE 1,000 ML IV SCH (21:09)
[2019-04-05] MEDS ORDERED: INSULIN REGULAR, HUMAN 1 UNIT/0.01 ML UNIT ONE (03:12)
[2019-04-05] MEDS: DEXTROSE 5%-1/2NS 1,000 ML IV SCH ×3 (04:13→20:11)
[2019-04-05] MEDS: 0.9 % SODIUM CHLORIDE 250 ML IV SCH ×2 (04:15→14:53)
[2019-04-05] MEDS: PIPERACILLIN SODIUM/TAZOBACTAM 3.375 GM in DEXTROSE 5% IN WATER 50 ML IV SCH ×4 (04:30→23:19)
[2019-04-05] MEDS: 0.9 % SODIUM CHLORIDE 10 ML SYRINGE IV SCH ×3 (05:35→23:21)
[2019-04-05 06:26] LABS: Hematocrit 30.8 % (34.1-44.9); Hemoglobin 10.2 g/dL (11.2-15.7); Mean Cell Volume 87.5 fL (80.0-100.0); Mean Corpuscular HGB Conc 33.1 g/dL (31.0-36.0); Mean Platelet Volume 9.8 fL (7.4-10.4); Platelet Count 260 K/mcL (140-440); RBC 3.52 M/mcL (3.59-5.38); Red Cell Distribution Width 14.6 % (11.5-14.5); WBC 12.6 K/mcL (4.50-11.00)
[2019-04-05 07:12] LABS: ALT/SGPT 10 U/l (0-40); AST/SGOT 10 U/l (0-37); Albumin 3.2 gm/dL (3.2-5.2); Albumin/Globulin Ratio 1.3 (1.0-2.3); Alkaline Phosphatase 85 U/L (39-117); Bilirubin,Direct < 0.2 mg/dL (0.0-0.3); Bilirubin,Total 0.4 mg/dL (0.0-1.0); Blood Urea Nitrogen 6 mg/dl (6-20); Calcium 8.4 mg/dl (8.6-10.4); Carbon Dioxide 16 mmol/L (22-30); Globulin 2.4 gm/dL (2.2-3.7); Glomerular Filtration Rate 103; Glucose 170 mg/dL (70-105); Lactate Dehydrogenase 117 U/L (94-250); Triglycerides 93 mg/dl (<150); Uric Acid 2.5 mg/dL (2.5-8.0)
[2019-04-05 07:13] LABS: Chloride 111 mmol/L (96-108); Phosphorous 2.4 mg/dL (2.7-4.5)
[2019-04-05 07:57] LABS: Band Neutrophils % 7 % (0-10); Lymphocytes % 19 % (15-49); Monocytes % (Manual) 2 % (1-12); Platelet Estimate NORMAL (NORMAL); RBC Morphology NORMAL (NORMAL); Segmented Neutrophils % 72 % (38-78)
[2019-04-05] MEDS: INSULIN REGULAR, HUMAN 50 UNIT in 0.9 % SODIUM CHLORIDE 99.5 ML IV SCH (08:00)
[2019-04-05] MEDS ORDERED: INSULIN REGULAR HUMAN INH PRN (08:43)
[2019-04-05] MEDS ORDERED: INSULIN DEGLUDEC SQ SCH (09:00)
[2019-04-05] MEDS ORDERED: INSULIN ASPART SQ SCH (09:00)
[2019-04-05] MEDS: MUPIROCIN OINT 2% 22GM NARES SCH ×2 (09:27→21:43)
[2019-04-05] MEDS: HEPARIN 5,000 UNIT/ML VIAL SQ SCH ×2 (09:37→21:42)
[2019-04-05] MEDS: VANCOMYCIN 1,000 MG in 0.9 % SODIUM CHLORIDE 250 ML IV SCH ×2 (10:21→21:41)
[2019-04-05] MEDS: INSULIN GLARGINE, HUMAN 1 UNIT/0.01 ML SQ SCH ×2 (10:21→21:44)
[2019-04-05] MEDS: MINOCYCLINE 100 MG CAPSULE PO SCH ×2 (10:42→21:41)
[2019-04-05] MEDS: MULTIVIT,THER IRON,CA,FA & MIN 1 TABLET PO SCH (10:42)
[2019-04-05] MEDS: FOLIC ACID 1 MG TABLET PO SCH (10:42)
[2019-04-05] MEDS: CYANOCOBALAMIN (VITAMIN B-12) 500 MCG TABLET PO SCH ×2 (10:42→21:42)
[2019-04-05] MEDS: DOCUSATE SODIUM 100 MG CAPSULE PO SCH ×2 (10:42→21:43)
[2019-04-05] MEDS: E ESTRADIOL E ESTRAD PO SCH (10:43)
[2019-04-05] MEDS: NORGEST PO SCH (10:43)
[2019-04-05] MEDS: THIAMINE 100 MG TABLET PO SCH (10:46)
[2019-04-05] MEDS: LORATADINE 10 MG TABLET PO SCH (14:34)
[2019-04-05] MEDS: INSULIN LISPRO 1 UNIT/0.01 ML UNIT SQ SCH ×4 (14:35→21:43)
[2019-04-05 15:38] LABS: ALT/SGPT 14 U/l (0-40); AST/SGOT 18 U/l (0-37); Albumin 3.9 gm/dL (3.2-5.2); Albumin/Globulin Ratio 1.4 (1.0-2.3); Alkaline Phosphatase 103 U/L (39-117); Bilirubin,Direct < 0.2 mg/dL (0.0-0.3); Bilirubin,Total 0.6 mg/dL (0.0-1.0); Blood Urea Nitrogen 9 mg/dl (6-20); Calcium 8.6 mg/dl (8.6-10.4); Carbon Dioxide 16 mmol/L (22-30); Chloride 104 mmol/L (96-108); Globulin 2.8 gm/dL (2.2-3.7); Glomerular Filtration Rate 89; Lactate Dehydrogenase 154 U/L (94-250); Triglycerides 103 mg/dl (<150); Uric Acid 2.2 mg/dL (2.5-8.0)
[2019-04-05 15:42] LABS: Phosphorous 2.9 mg/dL (2.7-4.5)
[2019-04-05 16:10] LABS: Glucose 548 mg/dL (70-105)
[2019-04-05] MEDS ORDERED: DEXTROSE 31 GM ORAL.SUSP PO PRN (16:50)
[2019-04-05] MEDS ORDERED: DEXTROSE 50% 50 ML VIAL IV PRN (16:50)
[2019-04-05] MEDS ORDERED: INSULIN LISPRO 1 UNIT/0.01 ML UNIT SQ ONE (17:17)
[2019-04-05] MEDS: 0.9 % SODIUM CHLORIDE 1,000 ML IV SCH (20:12)
--- NOTE | 2019-04-05 20:23 | Internal Med Progress Note ---
Medical - PN: Subj Patient information: Note initiated : 04/05/19 at 8:22 pm Service Date, if different from initiated Date: [] Patient: Yue Lucas a 23 y/o F admitted on 04/03/19 for cold/flu. Chief Complaint: [] Interval history: Ms. 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 Patient over the last few days has been experiencing nausea vomiting. Symptoms were associated with loss of appetite/weakness dizziness. Patient continued to work with the symptoms as you may need to be got flu. Her blood sugars have been erratic recently. Her symptoms progressed today to the point she could barely eat or drink anything due to persistent nausea vomiting prompting her to drive to the ER. Initial work-up was consistent with severe DKA with a pH of 7 bicarb 6, white count 30,000 lactic acid 7 and potassium 7.1, initial blood sugars 694 with anion gap 34. Patient was promptly started on DKA protocol with crystalloids and insulin drip Subsequently hospitalist service was consulted At the time evaluation patient is alert and able to answer most questions, she is hyperventilating. Remarkably tachycardic and complains of dry lips. Her nausea has since improved. She was able to endorse history as above. She denies recent fever, diarrhea, rash, headache photophobia or chills. She further denies cough, bleeding 04/04-patient doing better. Improved anion gap. Bicarb at 14. pH 7.34. On insulin drip. Potassium down to 5.3. White count at 29,000. No obvious source. Cultures pending. Continue management of DKA per protocol. Improved prognosis. 04/05-patient off insulin drip. Transition to subcutaneous insulin. No overnight events including fever chills nausea vomiting. White count downtrending to 12,000. No anxiety agitation. Anion gap normalized, bicarb improving up to 15. Electrolyte placement as indicated. Possible discharge in 24 hours - Constitutional Vitals: Vital Signs Temp Pulse Resp BP Pulse Ox 97.8 F 85 20 116/80 100 04/05/19 16:01 04/05/19 19:01 04/05/19 18:00 04/05/19 19:01 04/05/19 19:01 Period Temp Pulse Resp BP Sys/Brooke Pulse Ox Last 24 Hr 97.2 F-98.6 F 66-99 14-20 96-153/56-135 98-100 Intake and Output 04/05/19 04/05/19 04/05/19 05:59 13:59 21:59 Intake Total 1350 1854 850 Output Total 650 1750 1125 Balance 700 104 -275 Intake & Output: Intake & Output 04/05/19 04/05/19 04/05/19 05:59 13:59 21:59 Intake Total 1350 1854 850 Output Total 650 1750 1125 Balance 700 104 -275 Intake: IV 1350 1614 50 Dextrose 5%-1/2Ns IV Solution 1 1000 785 ,000 ml @ 125 mls/hr IV .Q8H [facility] Rx#:[id number] HumuLIN R 50 UNIT In Sodium 9 Chloride 0.9% 99.5 ml @ 0.1 UNIT/KG/HR 16.329 mls/hr IV DUR [facility] Rx#:[id number] Zosyn 3.375 gm In Dextrose 5% 100 50 50 in Water 50 ml @ 100 mls/hr IV Q6H [facility] Rx#:[id number] Potassium Chloride 40 Meq In 520 Dextrose 5% in Water 500 ml @ 130 mls/hr IV UD PRN Rx#: [id number] Vancomycin 1,000 mg In Sodium 250 250 Chloride 0.9% 250 ml @ 250 mls/ hr IV Q12H [facility] Rx#:[id number] Oral 240 800 Output: Void Amount 650 1750 Urine/Stool Mix 1125 Other: Meal Lunch Dinner Percent of Meal Consumed 100% 100% Urine Appearance Clear Clear Urine Color Bright Yellow Bright Yellow Urine Odor Normal Normal Stool Size Small Stool Color Green Stool Consistency Liquid # Bowel Movements 1 General appearance: no acute distress Exam: Alert oriented nonlabored breathing No anxiety No telemetry events Medical - PN: Obj Da - Labs CBC & Chem 7: 04/06/19 04:54 04/06/19 04:54 Labs: Abnormal Lab Results 04/05/19 04/05/19 04/05/19 14:12 05:07 05:06 WBC 12.6 H RBC 3.52 L Hgb 10.2 L Hct 30.8 L POC Hct RDW 14.6 H MPV Gran % Lymph % (Auto) Gran # [place] # (Auto) Seg Neutrophils % Lymphocytes % ABG Methemoglobin VBG pH VBG pCO2 VBG pO2 VBG HCO3 VBG Total CO2 VBG O2 Saturation VBG Base Excess VBG Lactic Acid Carboxyhemoglobin Total Hemoglobin POC Sodium Sodium POC Potassium Potassium POC Chloride Chloride 111 H Carbon Dioxide 16 L 16 L POC Total CO2 Anion Gap POC BUN BUN Creatinine Glucose 548 H* 170 H POC Glucose Uric Acid 2.2 L Calcium 8.4 L Phosphorus 2.4 L Magnesium Alkaline Phosphatase Total Protein 5.6 L Globulin Beta-Hydroxybutyrate 04/04/19 04/04/19 04/04/19 17:58 11:45 11:45 WBC RBC Hgb Hct POC Hct RDW MPV Gran % Lymph % (Auto) Gran # [place] # (Auto) Seg Neutrophils % Lymphocytes % ABG Methemoglobin VBG pH VBG pCO2 VBG pO2 VBG HCO3 VBG Total CO2 VBG O2 Saturation VBG Base Excess VBG Lactic Acid Carboxyhemoglobin Total Hemoglobin POC Sodium Sodium POC Potassium Potassium POC Chloride Chloride Carbon Dioxide 15 L 15 L 14 L POC Total CO2 Anion Gap POC BUN BUN Creatinine Glucose 216 H 178 H 179 H POC Glucose Uric Acid Calcium 8.4 L Phosphorus 1.8 L 2.6 L Magnesium Alkaline Phosphatase Total Protein 5.8 L Globulin Beta-Hydroxybutyrate 04/04/19 04/04/19 04/04/19 11:45 04:18 04:18 WBC RBC Hgb Hct POC Hct RDW MPV Gran % Lymph % (Auto) Gran # [place] # (Auto) Seg Neutrophils % Lymphocytes % ABG Methemoglobin VBG pH VBG pCO2 VBG pO2 VBG HCO3 VBG Total CO2 VBG O2 Saturation VBG Base Excess VBG Lactic Acid Carboxyhemoglobin Total Hemoglobin POC Sodium Sodium POC Potassium Potassium POC Chloride Chloride Carbon Dioxide 14 L POC Total CO2 Anion Gap POC BUN BUN Creatinine Glucose 206 H POC Glucose Uric Acid Calcium Phosphorus Magnesium 1.5 L Alkaline Phosphatase Total Protein Globulin Beta-Hydroxybutyrate 1.20 H 04/04/19 04/04/19 04/04/19 04:18 04:18 00:30 WBC 29.3 H RBC Hgb Hct POC Hct RDW MPV Gran % Lymph % (Auto) Gran # [place] # (Auto) Seg Neutrophils % 80 H Lymphocytes % 13 L ABG Methemoglobin 0.1 L VBG pH VBG pCO2 27.3 L VBG pO2 57 H VBG HCO3 14.5 L VBG Total CO2 15.4 L VBG O2 Saturation 86.3 H VBG Base Excess -9.7 L VBG Lactic Acid Carboxyhemoglobin 4.1 H Total Hemoglobin 11.5 L POC Sodium Sodium 132 L POC Potassium Potassium POC Chloride Chloride Carbon Dioxide 14 L POC Total CO2 Anion Gap POC BUN BUN Creatinine Glucose 198 H POC Glucose Uric Acid Calcium Phosphorus Magnesium Alkaline Phosphatase Total Protein Globulin Beta-Hydroxybutyrate 04/04/19 04/03/19 04/03/19 00:30 20:39 20:39 WBC RBC Hgb Hct POC Hct RDW MPV Gran % Lymph % (Auto) Gran # [place] # (Auto) Seg Neutrophils % Lymphocytes % ABG Methemoglobin 0.2 L 0.3 L VBG pH 7.16 L* VBG pCO2 22.9 L 28.0 L VBG pO2 139 H 57 H VBG HCO3 14.4 L 9.8 L* VBG Total CO2 15.1 L 10.7 L* VBG O2 Saturation 94.8 H 79.8 H VBG Base Excess -8.5 L -17.3 L VBG Lactic Acid Carboxyhemoglobin 4.2 H 6.4 H Total Hemoglobin 11.3 L POC Sodium Sodium POC Potassium Potassium 5.3 H POC Chloride Chloride Carbon Dioxide 7 L* POC Total CO2 Anion Gap 26.0 H POC BUN BUN Creatinine Glucose 339 H POC Glucose Uric Acid Calcium Phosphorus Magnesium Alkaline Phosphatase 125 H Total Protein Globulin Beta-Hydroxybutyrate 04/03/19 04/03/19 04/03/19 17:51 15:53 15:17 WBC RBC Hgb Hct POC Hct RDW MPV Gran % Lymph % (Auto) Gran # [place] # (Auto) Seg Neutrophils % Lymphocytes % ABG Methemoglobin VBG pH VBG pCO2 VBG pO2 VBG HCO3 VBG Total CO2 VBG O2 Saturation VBG Base Excess VBG Lactic Acid 7.0 H* Carboxyhemoglobin Total Hemoglobin POC Sodium Sodium POC Potassium 5.7 H Potassium POC Chloride 110 H Chloride Carbon Dioxide POC Total CO2 11 L Anion Gap POC BUN 26 H BUN Creatinine Glucose POC Glucose 495 H* Uric Acid Calcium Phosphorus Magnesium Alkaline Phosphatase Total Protein Globulin Beta-Hydroxybutyrate 7.65 H 04/03/19 04/03/19 04/03/19 15:17 15:17 15:17 WBC 30.1 H* RBC Hgb Hct 45.7 H POC Hct 49.0 H RDW MPV 10.5 H Gran % 87.5 H Lymph % (Auto) 6.2 L Gran # 26.29 H [place] # (Auto) 1.72 H Seg Neutrophils % Lymphocytes % ABG Methemoglobin VBG pH VBG pCO2 VBG pO2 VBG HCO3 VBG Total CO2 VBG O2 Saturation VBG Base Excess VBG Lactic Acid Carboxyhemoglobin Total Hemoglobin POC Sodium 130 L Sodium 130 L POC Potassium 6.8 H* Potassium 7.1 H* POC Chloride Chloride 90 L Carbon Dioxide 6 L* POC Total CO2 9 L* Anion Gap 34.0 H POC BUN 25 H BUN 24 H Creatinine 1.4 H Glucose 735 H* POC Glucose 694 H* Uric Acid Calcium Phosphorus Magnesium Alkaline Phosphatase 151 H Total Protein 8.7 H Globulin 3.8 H Beta-Hydroxybutyrate Meds: Medications Acetaminophen (Tylenol) 650 mg PO Q4-6HP PRN; Protocol PRN Reason: Per Pain Protocol/Fever > 101 Bisacodyl (Dulcolax) 10 mg CA Q2-3DAYS PRN PRN Reason: Constipation Cyanocobalamin (Vitamin B-12) 1,000 mcg PO BID [facility] Stop: 04/08/19 09:01 Last Admin: 04/05/19 10:42 Dose: 1,000 mcg Documented by: Dextrose (Dextrose 50%) 0 ml IV UD PRN PRN Reason: Hypoglycemia Diagnostic Test (Pha) (Accu-Chek) 1 each FS Q1 [facility] Last Admin: 04/05/19 19:56 Dose: 1 each Documented by: Docusate Sodium (Colace) 100 mg PO BID [facility] Last Admin: 04/05/19 10:42 Dose: 100 mg Documented by: Folic Acid (Folic Acid) 1 mg PO DAILY [facility] Last Admin: 04/05/19 10:42 Dose: 1 mg Documented by: Glucose (Insta-Glucose) 15 gm PO PRN PRN PRN Reason: Hypoglycemia Heparin Sodium (Porcine) (Heparin) 5,000 unit SQ Q12 [facility] Last Admin: 04/05/19 09:37 Dose: 5,000 unit Documented by: Sodium Chloride (Sodium Chloride 0.9%) 1,000 mls @ 0 mls/hr IV BOLUS [facility] Last Admin: 04/05/19 20:12 Dose: Not Given Documented by: Acetaminophen (Ofirmev) 650 mg in 65 mls @ 130 mls/hr IV Q6HP PRN; Protocol PRN Reason: Per Pain Protocol/Fever > 101 Magnesium Sulfate (Magnesium Sulfate) 2 gm in 50 mls @ 50 mls/hr IV UD PRN PRN Reason: MG = or < 1.7 Last Infusion: 04/04/19 14:09 Dose: Infused Documented by: Potassium Chloride 40 meq/ (Dextrose) 520 mls @ 130 mls/hr IV UD PRN PRN Reason: K+ = or < 3.5 Last Infusion: 04/05/19 12:45 Dose: Infused Documented by: Piperacillin Sod/Tazobactam (Sod 3.375 gm/ Dextrose) 50 mls @ 100 mls/hr IV Q6H [facility]; Protocol Last Infusion: 04/05/19 16:54 Dose: Infused Documented by: Dextrose/Sodium Chloride (Dextrose 5%-1/2ns Iv Solution) 1,000 mls @ 125 mls/hr IV .Q8H [facility] Last Admin: 04/05/19 20:11 Dose: Not Given Documented by: Norepinephrine Bitartrate 16 (mg/ Sodium Chloride) 250 mls @ 9.375 mls/hr IV Q24HP PRN; Protocol PRN Reason: Hypotension Last Titration: 04/04/19 12:00 Dose: 0 mcg/min, 0 mls/hr Documented by: Sodium Chloride (Sodium Chloride 0.9%) 250 mls @ 20 mls/hr IV .[id number] [facility] Last Admin: 04/05/19 14:53 Dose: Not Given Documented by: Vancomycin HCl 1,000 mg/ (Sodium Chloride) 250 mls @ 250 mls/hr IV Q12H [facility] Last Infusion: 04/05/19 11:21 Dose: Infused Documented by: Insulin Glargine (Lantus) 20 unit SQ BID [facility] Last Admin: 04/05/19 10:21 Dose: 20 unit Documented by: Insulin Human Lispro (Humalog) 0 unit SQ ACHS [facility]; Protocol Last Admin: 04/05/19 17:20 Dose: 14 unit Documented by: Iron Carb/Multivit/Corporate Director Of Pharmacy/Folic Acid (Multivitamin W/Minerals) 1 tab PO DAILY [facility] Last Admin: 04/05/19 10:42 Dose: 1 tab Documented by: Loratadine (Claritin) 10 mg PO DAILY [facility] Last Admin: 04/05/19 14:34 Dose: Not Given Documented by: Minocycline HCl (Minocin) 100 mg PO BID [facility] Last Admin: 04/05/19 10:42 Dose: 100 mg Documented by: Mupirocin (Bactroban Oint 2%) 1 dose NARES BID [facility] Last Admin: 04/05/19 09:27 Dose: 1 dose Documented by: Ondansetron HCl (Zofran Odt) 4 mg SL Q4-6HP PRN; Protocol PRN Reason: Nausea And Vomiting Ondansetron HCl (Zofran) 4 mg IV Q4-6HP PRN; Protocol PRN Reason: Nausea And Vomiting L-Norgest/E. Estradiol-E.Estrad [ Ashlyna] Tab 1 dose PO DAILY [facility] Last Admin: 04/05/19 10:43 Dose: Not Given Documented by: Polyethylene Glycol (Miralax) 17 gm PO DAILYP PRN PRN Reason: Constipation Potassium Chloride (Klor-Con) 40 meq PO DAILYP PRN PRN Reason: K+ < 3.5 Senna/Docusate Sodium (Senna Plus Tablet) 1 tab PO HS [facility] Last Admin: 04/04/19 21:07 Dose: Not Given Documented by: Sodium Chloride (Saline Flush) 10 ml IV Q8 [facility] Last Admin: 04/05/19 14:53 Dose: 10 ml Documented by: Thiamine HCl (Vitamin B1) 100 mg PO DAILY [facility] Last Admin: 04/05/19 10:46 Dose: 100 mg Documented by: Vancomycin HCl (Vancomycin Per Pharmacy) 1 order IV UD [facility] - ABG Interpretation ABG results: 04/03/19 04/04/19 04/04/19 20:39 00:30 04:18 ABG Methemoglobin 0.3 L 0.2 L 0.1 L VBG pH 7.16 L* 7.42 7.34 VBG pCO2 28.0 L 22.9 L 27.3 L VBG pO2 57 H 139 H 57 H VBG HCO3 9.8 L* 14.4 L 14.5 L VBG Total CO2 10.7 L* 15.1 L 15.4 L VBG O2 Saturation 79.8 H 94.8 H 86.3 H VBG Base Excess -17.3 L -8.5 L -9.7 L Medical - PN: A/P - Time Spent With Patient Total time spent is greater than 50% in coordination of care (as documented) at patient's floor/unit and/or counseling patient: 15 - 24 minutes (1) DKA (diabetic ketoacidoses) Status: Acute Assessment and plan: * DKA-clinical improvement noted with management protocol. Transition to Sq insulin. Start diabetic diet * Multiple electrolyte abnormality continue replacement as indicated * [place]is [place] 30[place] [address] , Dc Abx AM * Type 1 diabetes-we will start basal prandial insulin/CC diet once DKA resolves * Full code * Prophylaxis heparin Plan * Sq insulin, Diabetic diet/diabetic education * Continue aggressive electrolyte replacement * Possible discharge in the morning Current Visit: Yes
[2019-04-05] MEDS: SENNOSIDES/DOCUSATE SODIUM 1 TAB TABLET PO SCH (21:44)
[2019-04-05 23:30] LABS: ALT/SGPT 12 U/l (0-40); AST/SGOT 12 U/l (0-37); Albumin 3.7 gm/dL (3.2-5.2); Albumin/Globulin Ratio 1.5 (1.0-2.3); Alkaline Phosphatase 97 U/L (39-117); Bilirubin,Direct < 0.2 mg/dL (0.0-0.3); Bilirubin,Total 0.4 mg/dL (0.0-1.0); Blood Urea Nitrogen 12 mg/dl (6-20); Calcium 9.1 mg/dl (8.6-10.4); Chloride 105 mmol/L (96-108); Globulin 2.5 gm/dL (2.2-3.7); Glomerular Filtration Rate 103; Glucose 144 mg/dL (70-105); Lactate Dehydrogenase 136 U/L (94-250); Phosphorous 2.8 mg/dL (2.7-4.5); Triglycerides 99 mg/dl (<150); Uric Acid 2.5 mg/dL (2.5-8.0)
[2019-04-05 23:31] LABS: Carbon Dioxide 22 mmol/L (22-30)
[2019-04-06] MEDS: INSULIN LISPRO 1 UNIT/0.01 ML UNIT SQ SCH ×4 (03:07→12:02)
[2019-04-06] MEDS: 0.9 % SODIUM CHLORIDE 250 ML IV SCH (03:20)
[2019-04-06] MEDS: PIPERACILLIN SODIUM/TAZOBACTAM 3.375 GM in DEXTROSE 5% IN WATER 50 ML IV SCH ×2 (04:45→09:20)
[2019-04-06] MEDS: DEXTROSE 5%-1/2NS 1,000 ML IV SCH ×2 (05:01→12:44)
[2019-04-06 06:25] LABS: Hematocrit 32.1 % (34.1-44.9); Hemoglobin 10.8 g/dL (11.2-15.7); Mean Cell Volume 87.5 fL (80.0-100.0); Mean Corpuscular HGB Conc 33.6 g/dL (31.0-36.0); Mean Platelet Volume 10.1 fL (7.4-10.4); Platelet Count 267 K/mcL (140-440); RBC 3.67 M/mcL (3.59-5.38); Red Cell Distribution Width 14.6 % (11.5-14.5); WBC 7.8 K/mcL (4.50-11.00)
[2019-04-06 06:55] LABS: ALT/SGPT 12 U/l (0-40); AST/SGOT 11 U/l (0-37); Albumin 3.3 gm/dL (3.2-5.2); Albumin/Globulin Ratio 1.3 (1.0-2.3); Alkaline Phosphatase 89 U/L (39-117); Bilirubin,Direct < 0.2 mg/dL (0.0-0.3); Bilirubin,Total 0.4 mg/dL (0.0-1.0); Blood Urea Nitrogen 11 mg/dl (6-20); Calcium 8.4 mg/dl (8.6-10.4); Carbon Dioxide 21 mmol/L (22-30); Chloride 106 mmol/L (96-108); Globulin 2.6 gm/dL (2.2-3.7); Glomerular Filtration Rate 103; Glucose 223 mg/dL (70-105); Lactate Dehydrogenase 170 U/L (94-250); Phosphorous 3.2 mg/dL (2.7-4.5); Triglycerides 102 mg/dl (<150); Uric Acid 2.2 mg/dL (2.5-8.0)
[2019-04-06] MEDS: MAGNESIUM SULFATE 2 GM/50 ML BAG IV PRN (07:00)
[2019-04-06] MEDS: 0.9 % SODIUM CHLORIDE 10 ML SYRINGE IV SCH (07:39)
[2019-04-06 07:43] LABS: Basophils % (Manual) 1 % (0-2); Eosinophils % (Manual) 1 % (0-7); Lymphocytes % 39 % (15-49); Monocytes % (Manual) 11 % (1-12); Platelet Estimate NORMAL (NORMAL); RBC Morphology NORMAL (NORMAL); Segmented Neutrophils % 48 % (38-78)
[2019-04-06] MEDS: MINOCYCLINE 100 MG CAPSULE PO SCH (08:51)
[2019-04-06] MEDS: MUPIROCIN OINT 2% 22GM NARES SCH (08:51)
[2019-04-06] MEDS: VANCOMYCIN 1,000 MG in 0.9 % SODIUM CHLORIDE 250 ML IV SCH (08:51)
[2019-04-06] MEDS: DOCUSATE SODIUM 100 MG CAPSULE PO SCH (08:52)
[2019-04-06] MEDS: NORGEST PO SCH (08:52)
[2019-04-06] MEDS: E ESTRADIOL E ESTRAD PO SCH (08:52)
[2019-04-06] MEDS: HEPARIN 5,000 UNIT/ML VIAL SQ SCH (08:56)
[2019-04-06] MEDS: THIAMINE 100 MG TABLET PO SCH (08:56)
[2019-04-06] MEDS: FOLIC ACID 1 MG TABLET PO SCH (08:56)
[2019-04-06] MEDS: INSULIN GLARGINE, HUMAN 1 UNIT/0.01 ML SQ SCH (08:56)
[2019-04-06] MEDS: MULTIVIT,THER IRON,CA,FA & MIN 1 TABLET PO SCH (08:56)
[2019-04-06] MEDS: CYANOCOBALAMIN (VITAMIN B-12) 500 MCG TABLET PO SCH (09:02)
[2019-04-06] MEDS: LORATADINE 10 MG TABLET PO SCH (09:02)
--- NOTE | 2019-04-06 09:52 | Discharge Summary ---
Medical - DS: Prov Patient information: Note initiated : 04/06/19 at 9:47 am Service Date, if different from initiated Date: [] Patient: Yue Lucas 23 y/o F admitted on 04/03/19 for cold/flu. Chief Complaint: [] Date of admission: 04/03/19 20:13 Discharge date: 04/06/19 Primary care physician: Naina Yadav Consults: 04/03/19 18:10 Consult to Physician [CONS] Stat Comment: Consulting Provider: Cal Pennington Reason For Exam: Physician to Consult Medical - DS: Meds - Discharge Medications Active and Home Medications: Home Medications Doxycycline Hyclate 100 mg PO BID 04/03/19 [History Confirmed 04/03/19 Last Taken Unknown] Insulin Aspart [Novolog] 52 - 70 units SQ DAILY 04/03/19 [History Confirmed 04/03/19 Last Taken Unknown] Insulin Degludec [Tresiba Flextouch U-100] 43 unit SQ DAILY 04/03/19 [History Confirmed 04/03/19 Last Taken Unknown] Loratadine [Allerclear] 10 mg PO DAILY 04/03/19 [History Confirmed 04/03/19 Last Taken Unknown] Minocycline [Minocin] 100 mg PO BID 04/03/19 [History Confirmed 04/03/19 Last Taken Unknown] l-Norgest/E.estradiol-E.estrad [Ashlyna 0.15-0.03-0.01 mg Tab] 1 tab PO DAILY 04/03/19 [History Confirmed 04/03/19 Last Taken Unknown] Medical - DS: Hosp Hospital Course: Discharge diagnosis * DKA-clinically resolved with aggressive treatment per protocol. Bicarbonate normalized 21, anion gap resolved, blood sugars at goal following transition to diabetic diet/decrease insulin. * Multiple electrolyte abnormality continue replacement as indicated * Sepsis with elevated white count, resolved, white count down from 30,000-7.8. * Type 1 diabetes-continue follow primary care physician. Continue basal prandial insulin Brief hospital course Ms. 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 Patient over the last few days has been experiencing nausea vomiting. Symptoms were associated with loss of appetite/w eakness dizziness. Patient continued to work with the symptoms as you may need to be got flu. Her blood sugars have been erratic recently. Her symptoms progressed today to the point she could barely eat or drink anything due to persistent nausea vomiting prompting her to drive to the ER. Initial work-up was consistent with severe DKA with a pH of 7 bicarb 6, white count 30,000 lactic acid 7 and potassium 7.1, initial blood sugars 694 with anion gap 34. Patient was promptly started on DKA protocol with crystalloids and insulin drip Subsequently hospitalist service was consulted At the time evaluation patient is alert and able to answer most questions, she is hyperventilating. Remarkably tachycardic and complains of dry lips. Her nausea has since improved. She was able to endorse history as above. She denies recent fever, diarrhea, rash, headache photophobia or chills. She further denies cough, bleeding 04/04-patient doing better. Improved anion gap. Bicarb at 14. pH 7.34. On insulin drip. Potassium down to 5.3. White count at 29,000. No obvious source. Cultures pending. Continue management of DKA per protocol. Improved prognosis. 04/05-patient off insulin drip. Transition to subcutaneous insulin. No overnight events including fever chills nausea vomiting. White count downtrending to 12,000. No anxiety agitation. Anion gap normalized, bicarb improving up to 15. Electrolyte placement as indicated. Possible discharge in 24 hours 04/06-doing well. Discharging home with advised to follow-up primary care physician. Discharge directions below Discharge diagnosis: . - Time Spent with Patient Total time spent providing and/or coordinating discharge services: Greater than 30 minutes Medical - DS: Exam - Constitutional Vitals: Vital Signs Temp Pulse Pulse Resp BP BP Pulse Ox 04/06/19 09:33 98.1 F 90 16 121/61 100 04/06/19 08:01 98.1 F 16 113/78 100 04/06/19 07:51 85 20 100 04/06/19 07:44 18 103/65 100 04/06/19 07:00 98.8 F 20 103/65 100 04/06/19 06:01 98.4 F 16 101/62 99 04/06/19 05:01 89 100/63 99 04/06/19 05:00 87 100 04/06/19 04:01 74 107/69 100 04/06/19 04:00 75 100 04/06/19 03:11 86 100 04/06/19 03:10 86 112/68 100 04/06/19 03:01 78 99 04/06/19 03:00 83 99 04/06/19 02:01 68 106/62 100 04/06/19 02:00 79 18 99 04/06/19 01:02 84 100 04/06/19 01:01 90 119/65 99 04/06/19 01:00 80 100 04/06/19 00:01 98 H 105/68 100 04/06/19 00:00 90 100 04/05/19 23:18 101 H 128/84 100 04/05/19 22:01 110/77 04/05/19 21:01 99 H 90/78 100 04/05/19 21:00 86 100 04/05/19 20:01 102 H 113/69 100 04/05/19 20:00 98.9 F 89 20 100 04/05/19 19:02 80 100 04/05/19 19:01 85 116/80 100 04/05/19 19:00 82 100 04/05/19 18:26 116/75 04/05/19 18:00 20 153/65 100 04/05/19 17:11 153/135 04/05/19 16:01 97.8 F 20 131/72 100 04/05/19 15:01 128/83 04/05/19 11:01 98.4 F 88 20 109/79 100 04/05/19 10:01 97.6 F 80 121/81 99 Intake and Output 04/05/19 04/06/19 04/06/19 21:59 05:59 13:59 Intake Total 850 1150 50 Output Total 2475 650 Balance -1625 1150 -600 Intake: IV 50 350 50 Zosyn 3.375 gm In Dextrose 5% 50 100 in Water 50 ml @ 100 mls/hr IV Q6H [facility] Rx#:[id number] Vancomycin 1,000 mg In Sodium 250 Chloride 0.9% 250 ml @ 250 mls/ hr IV Q12H [facility] Rx#:[id number] Oral 800 800 Output: Void Amount 750 Urine/Stool Mix 1725 650 Other: Meal Dinner Percent of Meal Consumed 100% Urine Appearance Sediment Sediment Urine Color Bright Yellow Bright Yellow Urine Odor Normal Normal Stool Size Small Stool Color Green Stool Consistency Liquid Soft Liquid # Bowel Movements 1 Weight 171 lb 4.8 oz Medical - DS: Data Labs on day of discharge: Labs from last 24 hours 04/06/19 04/06/19 04/05/19 04:54 04:54 22:02 WBC 7.8 RBC 3.67 Hgb 10.8 L Hct 32.1 L MCV 87.5 MCH 29.4 MCHC 33.6 RDW 14.6 H Plt Count 267 MPV 10.1 Total Counted 100 Seg Neutrophils % 48 Band Neutrophils % Not Reportable Lymphocytes % 39 Monocytes % (Manual) 11 Eosinophils % (Manual) 1 Basophils % (Manual) 1 Platelet Estimate Normal RBC Morphology Normal Sodium 139 140 Potassium 3.8 3.8 Chloride 106 105 Carbon Dioxide 21 L 22 Anion Gap 12.0 13.0 BUN 11 12 Creatinine 0.8 0.8 GFR Calculation 103 103 Glucose 223 H 144 H Uric Acid 2.2 L 2.5 Calcium 8.4 L 9.1 Phosphorus 3.2 2.8 Magnesium 1.6 1.8 Total Bilirubin 0.4 0.4 Direct Bilirubin < 0.2 < 0.2 GGT 12 14 AST 11 12 ALT 12 12 Alkaline Phosphatase 89 97 Lactate Dehydrogenase 170 136 Total Protein 5.9 6.2 Albumin 3.3 3.7 Globulin 2.6 2.5 Albumin/Globulin Ratio 1.3 1.5 Triglycerides 102 99 04/05/19 14:12 WBC RBC Hgb Hct MCV MCH MCHC RDW Plt Count MPV Total Counted Seg Neutrophils % Band Neutrophils % Lymphocytes % Monocytes % (Manual) Eosinophils % (Manual) Basophils % (Manual) Platelet Estimate RBC Morphology Sodium 133 Potassium 4.8 Chloride 104 Carbon Dioxide 16 L Anion Gap 13.0 BUN 9 Creatinine 0.9 GFR Calculation 89 Glucose 548 H* Uric Acid 2.2 L Calcium 8.6 Phosphorus 2.9 Magnesium 1.7 Total Bilirubin 0.6 Direct Bilirubin < 0.2 GGT 14 AST 18 ALT 14 Alkaline Phosphatase 103 Lactate Dehydrogenase 154 Total Protein 6.7 Albumin 3.9 Globulin 2.8 Albumin/Globulin Ratio 1.4 Triglycerides 103 Medical - DS: A/P - Patient/Caregiver Discharge Instructions Activity: increase activity as tolerated Diet: Consistent Carbohydrate Additional Instructions: Follow-up primary care physician 5 to 7 days Return to ER if worsening nausea vomiting lightheadedness Other Amb Orders: Diabetes Education Referral (outpatient) Location: None Selected - Problem Maintenance (1) DKA (diabetic ketoacidoses) Status: Acute Qualifiers: Diabetes mellitus type: type 1 Diabetes mellitus complication detail: without coma Qualified Code(s): E10.10 - Type 1 diabetes mellitus with ketoacidosis without coma - Follow up Plan Follow up with: Naina Yadav MD [Primary Care Provider] - Disposition: Home, Self-Care Care Plan Goals: This discharge packet is provided to you to help keep you informed about your care. We want to ensure you get everything you need when you go home. You will also be receiving a call from us in a few days to follow up with you and see how you are doing since your discharge. This gives us a chance to listen to any concerns you maybe experiencing since you were discharged or any additional needs you may have, as well as providing us feedback on your care experience. We strive to always provide excellent care and thank you for your feedback and for choosing [facility]. Prognosis: Fair Rehab Potential: Fair I certify that the patient requires SNF services: No Overall status at discharge: patient is progressing back to baseline
== END 2019-04-06 12:13 | disposition home or self-care (01) | DRG 637 ==
LOC: ED 13:39 → ICU 20:13
PROVIDERS: ADMIT Internal Medicine; ATTEND Internal Medicine

== ENCOUNTER 2020-02-23 06:24 | Inpatient (IN) ==
[2020-02-23] MEDS ORDERED: INSULIN REGULAR, HUMAN 1 UNIT/0.01 ML UNIT IV ONE ×2 (06:30→07:51)
[2020-02-23] MEDS ORDERED: 0.9 % SODIUM CHLORIDE 1,000 ML IV ONE ×2 (06:30→07:51)
[2020-02-23] MEDS ORDERED: ONDANSETRON 4 MG/2 ML VIAL IV ONE (06:35)
--- NOTE | 2020-02-23 06:37 | Emergency Department Note ---
HPI General Chief complaint: Blood Sugar Problem Stated complaint: DKA Time Seen by Provider: 02/23/20 06:30 Source: patient and RN notes reviewed Mode of arrival: ambulatory Limitations: no limitations History of Present Illness HPI Narrative: Narrative: This patient has a history of type 1 diabetes and has been running high blood sugars recently and had one episode of nausea and vomiting. 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 She has no cough or shortness of breath. No fever. Onset (ago): hour(s) Related Data Home Medications Medication Instructions Recorded Confirmed L norgest/e.estradiol-e.estrad 1 tab PO DAILY 04/03/19 10/16/19 doxycycline hyclate 100 mg PO BID 04/03/19 10/16/19 insulin aspart U-100 52 - 70 units SQ DAILY 04/03/19 10/16/19 insulin degludec 43 unit SQ DAILY 04/03/19 10/16/19 loratadine 10 mg PO DAILY 04/03/19 10/16/19 Allergies Allergy/AdvReac Type Severity Reaction Status Date / Time No Known Drug Allergies Allergy Verified 10/16/19 13:33 Review of Systems ROS ROS Narrative: Narrative: All systems ED: reviewed and negative except as stated. [facility] Narrative Patient History Narrative: Narrative: Medical/Surgical/Family History All Active Problems (Updated 02/23/20 @ 08:19 by Zeferino Cavazos MD) Hyperglycemia due to type 1 diabetes mellitus (Acute) USP (current) use of insulin (Acute) Type 1 diabetes mellitus (Acute) DKA (diabetic ketoacidoses) (Acute) Medical History (Updated 02/23/20 @ 08:19 by Zeferino Cavazos MD) History of brain tumor (Acute) Removed at 18 months old. Currently has shunt placed. Social History Smoking Status: Never smoker Exam Narrative Narrative: Narrative: General Limitations: no limitations Head Head: Present atraumatic, normocephalic and normal inspection Eye Eye: Present normal appearance and EOMI; Absent scleral icterus and conjunctival injection ENT ENT: Present normal exam, normal oropharynx and mucous membranes dry Neck Neck: Present normal inspection and full ROM Chest Chest: Present normal inspection and symmetric chest wall rise Respiratory Respiratory: Present normal lung sounds bilaterally Cardiovascular Cardiovascular: Present regular rate and normal rhythm; Absent normal heart sounds Adbominal Abdominal: Present soft; Absent distention and tenderness Extremities Extremities: Present normal inspection and full ROM; Absent pedal edema and pretibial edema Neurological Neurological: Present alert Psychiatric Psychiatric: Present normal affect Skin Skin: Present warm (WNL) and dry; Absent diaphoresis Course Vital Signs Vital signs: Vital Signs Temperature 97.6 F 02/23/20 06:25 Pulse Rate 113 H 02/23/20 06:25 Respiratory Rate 22 02/23/20 06:25 Blood Pressure 127/71 02/23/20 06:25 Pulse Oximetry (%) 100 02/23/20 06:25 Temperature 97.6 F 02/23/20 06:25 Pulse Rate 114 H 02/23/20 08:01 Respiratory Rate 22 02/23/20 06:25 Blood Pressure 123/72 02/23/20 08:01 Pulse Oximetry (%) 100 02/23/20 08:01 MDM MDM Narrative Medical decision making narrative: Narrative: Patient was hydrated with 2 L of NS and given 20 units of regular insulin IV and then an insulin drip was started once her acidotic state was determined. Discussed the case with Dr. Catalan and she will be admitted to the ICU. We will do a rapid Covid test first. Lab Data Lab results reviewed: Yes I reviewed the patient's lab results. Lab results narrative: Blood sugar was 713 T CO2 13 Result diagrams: 02/23/20 06:30 02/23/20 06:30 Labs: Lab Results 02/23/20 02/23/20 Range/Units 06:30 06:30 WBC 12.5 H (4.5-11.0) K/mcL RBC 4.44 (4.00-5.20) M/mcL Hgb 12.9 (12.0-15.0) g/dL Hct 42.2 (36.0-48.0) % MCV 95.0 (80.0-100.0) fL MCH 29.1 (26.0-34.0) pg MCHC 30.6 L (31.0-36.0) g/dL RDW 13.2 (11.5-14.5) % Plt Count 358 (140-440) K/mcL MPV 10.1 (7.4-10.4) fL Neut % (Auto) 75.2 (38.0-78.0) % Lymph % (Auto) 17.2 (15.0-49.0) % [place] % (Auto) 6.7 (1.0-12.0) % Eos % (Auto) 0.3 (0.0-7.0) % Baso % (Auto) 0.6 (0.0-2.0) % Lymph # (Auto) 2.15 (1.50-4.80) K/mcL [place] # (Auto) 0.84 (0.10-0.90) K/mcL Eos # (Auto) 0.04 (0.00-0.70) K/mcL Baso # (Auto) 0.07 (0.00-0.20) K/mcL Absolute Neutrophils 9.41 H (1.80-8.00) K/mcL Sodium 127 L (133-145) mmol/L Potassium 5.0 (3.3-5.1) mmol/L Chloride 84 L (96-108) mmol/L Carbon Dioxide 13 L (22-30) mmol/L Anion Gap 30.0 H (8.0-16.0) BUN 19 (6-20) mg/dL Creatinine 1.2 H (0.6-1.1) mg/dL GFR Calculation 63 Glucose 713 H* (70-105) mg/dL Calcium 9.7 (8.6-10.4) mg/dL Total Bilirubin 0.7 (0.1-1.0) mg/dL AST 12 (<32) U/L ALT 11 (<40) U/L Alkaline Phosphatase 113 (39-117) U/L Total Protein 7.8 (5.9-8.4) gm/dL Albumin 4.7 (3.2-5.2) gm/dL Globulin 3.1 (2.2-3.7) gm/dL Albumin/Globulin Ratio 1.5 (1.0-2.3) Beta-Hydroxybutyrate 6.33 H (<0.27) mmol/L Discharge Plan Patient/Caregiver Discharge Instructions Pt seen by LAND ECONOMIST/PA only: No Clinical Impression: DKA (diabetic ketoacidoses) Patient Disposition: Xfer As Inpt ([facility]) Follow up with: Naina Yadav MD [Primary Care Provider] - Prescriptions: No Action insulin aspart U-100 100/ML solution 52 - 70 units SQ DAILY RF: 0 doxycycline hyclate 100 MG tablet 100 mg PO BID RF: 0 loratadine 10 MG tablet 10 mg PO DAILY RF: 0 L norgest/e.estradiol-e.estrad 1 EACH tablets,dose pack,3 month 1 tab PO DAILY RF: 0 insulin degludec 100 UNIT/ML insulin pen 43 unit SQ DAILY RF: 0
[2020-02-23 07:15] LABS: Basophils # (Auto) 0.07 K/mcL (0.00-0.20); Basophils % (Auto) 0.6 % (0.0-2.0); Eosinophils # (Auto) 0.04 K/mcL (0.00-0.70); Eosinophils % (Auto) 0.3 % (0.0-7.0); Hematocrit 42.2 % (36.0-48.0); Hemoglobin 12.9 g/dL (12.0-15.0); Lymphocytes # (Auto) 2.15 K/mcL (1.50-4.80); Lymphocytes % (Auto) 17.2 % (15.0-49.0); Mean Corpuscular HGB Conc 30.6 g/dL (31.0-36.0); Mean Platelet Volume 10.1 fL (7.4-10.4); Monocytes # (Auto) 0.84 K/mcL (0.10-0.90); Monocytes % (Auto) 6.7 % (1.0-12.0); Neutrophils % (Auto) 75.2 % (38.0-78.0); Platelet Count 358 K/mcL (140-440); RBC 4.44 M/mcL (4.00-5.20); Red Cell Distribution Width 13.2 % (11.5-14.5); WBC 12.5 K/mcL (4.5-11.0)
[2020-02-23 07:51] LABS: ALT/SGPT 11 U/L (<40); AST/SGOT 12 U/L (<32); Albumin 4.7 gm/dL (3.2-5.2); Albumin/Globulin Ratio 1.5 (1.0-2.3); Alkaline Phosphatase 113 U/L (39-117); Bilirubin,Total 0.7 mg/dL (0.1-1.0); Blood Urea Nitrogen 19 mg/dL (6-20); Calcium 9.7 mg/dL (8.6-10.4); Carbon Dioxide 13 mmol/L (22-30); Chloride 84 mmol/L (96-108); Globulin 3.1 gm/dL (2.2-3.7); Glomerular Filtration Rate 63; Glucose 713 mg/dL (70-105)
[2020-02-23 08:07] LABS: Beta Hydroxybutyrate 6.33 mmol/L (<0.27)
--- NOTE | 2020-02-23 08:14 | Internal Med History&Physical ---
HPI History of Present Illness Patient information: Note initiated : 02/23/20 at 8:14 am Service Date, if different from initiated Date: [] Patient: Yue Lucas a 24 y/o F admitted on for DKA. Chief Complaint: Elevated blood sugars, not feeling well/nausea vomiting History of present illness: Ms. 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 Patient has had good control of her diabetes and currently on a Medtronic insulin pump. She denies any precipitating events including flulike symptoms. She actually has been tested twice for Covid in the last 2 weeks. Initial work-up in the ER was consistent with severe DKA with increased gap/acidosis/elevated beta hydroxybutyrate and blood sugars over 700. Patient was started on crystalloid/insulin drip and subsequent hospital service was consulted At the time of my evaluation patient is alert and oriented. She denies any active distress. She fell that her insulin pump has been malfunctioning but denies any other precipitating events or URI symptoms, diarrhea, fever. 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 Currently has shunt placed. Social History smoking status: Never smoker MEDS/ALLERGIES Home Medications and Allergies Home Medications Medication Instructions Recorded Confirmed Type L norgest/e.estradiol-e.estrad 1 tab PO DAILY 04/03/19 02/23/20 History insulin aspart U-100 52 - 70 units SQ DAILY 04/03/19 02/23/20 History insulin degludec 43 unit SQ DAILY 04/03/19 02/23/20 History dapsone 1 applic TOPICAL QDAY 02/23/20 02/23/20 History Allergies Allergy/AdvReac Type Severity Reaction Status Date / Time No Known Drug Allergies Allergy Verified 10/16/19 13:33 EXAM Constitutional Vitals: Temp Pulse Resp BP Pulse Ox 97.6 F 114 H 22 123/72 100 02/23/20 06:25 02/23/20 08:01 02/23/20 06:25 02/23/20 08:01 02/23/20 08:01 COVID-19 precautions taken Alert oriented and cooperative Head normocephalic Oral cavity appears moist No visible ear nose discharge Eye movement symmetrical Neck obvious no deformity/ S1-S2 tachycardia on telemetry regular 120 Nonlabored breathing Nondistended abdomen Lower extremity no visible cyanosis clubbing or joint swelling Skin no apparent suspicious lesion Psych minimally anxious e Neuro normal higher function DATA Data Completed and Pending Labs: Labs from last 24 hours 02/23/20 02/23/20 02/23/20 07:20 06:30 06:30 WBC 12.5 H RBC 4.44 Hgb 12.9 Hct 42.2 MCV 95.0 MCH 29.1 MCHC 30.6 L RDW 13.2 Plt Count 358 MPV 10.1 Neut % (Auto) 75.2 Lymph % (Auto) 17.2 [place] % (Auto) 6.7 Eos % (Auto) 0.3 Baso % (Auto) 0.6 Lymph # (Auto) 2.15 [place] # (Auto) 0.84 Eos # (Auto) 0.04 Baso # (Auto) 0.07 Absolute Neutrophils 9.41 H Sodium 127 L Potassium 5.0 Chloride 84 L Carbon Dioxide 13 L Anion Gap 30.0 H BUN 19 Creatinine 1.2 H GFR Calculation 63 Glucose 713 H* Calcium 9.7 Total Bilirubin 0.7 AST 12 ALT 11 Alkaline Phosphatase 113 Total Protein 7.8 Albumin 4.7 Globulin 3.1 Albumin/Globulin Ratio 1.5 Beta-Hydroxybutyrate 6.33 H Urine Color Pending Urine Appearance Pending Urine pH Pending Ur Specific [place] Pending Urine Protein Pending Urine Glucose (UA) Pending Urine Ketones Pending Urine Occult Blood Pending Urine Nitrate Pending Urine Bilirubin Pending Urine Urobilinogen Pending Ur Leukocyte Esterase Pending A/P Narrative A/P Narrative: * Diabetic ketoacidosis likely secondary to pump malfunction. Continue treatment per protocol with insulin drip/crystalloids. Pump evaluation by [employer] * Electrolyte abnormalities will be managed as per protocol with serial electrolyte levels * Full code * Prophylaxis early ambulation Plan * Inpatient ICu admission * DKA management per protocol * Blood gas/electrolyte/insulin drip/crystalloid Time Spent With Patient Time: Total time spent is greater than 50% in coordination of care (as documented) at patient's floor/unit and/or counseling patient: QUALITY Stroke Symptom Onset Unknown: No
[2020-02-23] MEDS ORDERED: INSULIN REGULAR, HUMAN 50 UNIT in 0.9 % SODIUM CHLORIDE 99.5 ML IV SCH (08:15)
[2020-02-23 08:31] LABS: Appearance,Urine CLEAR (Clear); Bilirubin,Urine Negative (Negative); Color,Urine STRAW; Culture Indicated,Urine No; Glucose,Urine (UA) >=500 mg/dL (Negative); Ketones,Urine 80 mg/dL (Negative); Leukocyte Esterase,Urine 250 /ug (Negative); Nitrate,Urine Negative (Negative); Protein,Urine Negative (Negative); Specific Gravity,Urine 1.026 (1.000-1.035); Urine Blood Negative (Negative); Urine Budding Yeast FEW /hpf; Urine RBC 4 /hpf (0-1); Urine Squamous Epithelial Cell 12 /hpf (0-4); Urine WBC 3 /hpf (0-4); Urobilinogen,Urine Negative
[2020-02-23] MEDS ORDERED: POLYETHYLENE GLYCOL 3350 17 GM PACKET PO PRN (09:39)
[2020-02-23] MEDS ORDERED: MAGNESIUM SULFATE 2 GM/50 ML BAG IV PRN (09:39)
[2020-02-23] MEDS ORDERED: ONDANSETRON 4 MG/2 ML VIAL IV PRN (09:39)
[2020-02-23] MEDS ORDERED: CALCIUM CHLORIDE 1,000 MG/10 ML SYRINGE IV PRN (09:39)
[2020-02-23] MEDS ORDERED: MELATONIN 3 MG TABLET PO PRN (09:39)
[2020-02-23] MEDS ORDERED: ONDANSETRON 4 MG ODT TABLET SL PRN (09:39)
[2020-02-23] MEDS ORDERED: ACETAMINOPHEN 650 MG/65 ML BAG IV PRN (09:39)
[2020-02-23] MEDS ORDERED: POTASSIUM CHLORIDE 40 MEQ in DEXTROSE 5% IN WATER 500 ML IV PRN (09:39)
[2020-02-23] MEDS ORDERED: BISACODYL 10 MG SUPP.RECT PR PRN (09:39)
[2020-02-23] MEDS ORDERED: POTASSIUM PHOSPHATE 20 MEQ in DEXTROSE 5% IN WATER 250 ML IV ONE (09:39)
[2020-02-23] MEDS ORDERED: ACETAMINOPHEN 325 MG TABLET PO PRN (09:39)
[2020-02-23] MEDS: 0.45 % SODIUM CHLORIDE 1,000 ML IV SCH ×2 (10:05→18:20)
[2020-02-23] MEDS: DOCUSATE SODIUM 100 MG CAPSULE PO SCH ×2 (10:06→20:59)
[2020-02-23] MEDS: MULTIVIT,THER IRON,CA,FA & MIN 1 TABLET PO SCH (10:09)
[2020-02-23 10:31] LABS: ABG Methemoglobin 0.3 % (0.4-1.5); VBG Base Excess -12 (-2-3); VBG HCO3 13.8 mmol/L; VBG Oxygen Saturation 92.7 %; VBG PCO2 29.9 mmHg; VBG PH 7.28 U; VBG Total CO2 14.7 mmol/L
[2020-02-23] MEDS: INSULIN REGULAR, HUMAN 50 UNIT in 0.9 % SODIUM CHLORIDE 99.5 ML IV SCH ×4 (10:37→23:19)
[2020-02-23 14:02] LABS: Hemoglobin A1C 10.8 % Hgb (4.0-6.0)
[2020-02-23] MEDS: DEXTROSE 5%-1/2NS 1,000 ML IV SCH ×3 (14:07→23:01)
[2020-02-23 14:37] LABS: ABG Methemoglobin 0.3 % (0.4-1.5); Total Hemoglobin 11.2 gm/Dl (13.5-16.5); VBG Base Excess -7 (-2-3); VBG HCO3 18.1 mmol/L; VBG Oxygen Saturation 92.5 %; VBG PCO2 33.5 mmHg; VBG PH 7.35 U; VBG PO2 77.8 mmHg; VBG Total CO2 19.1 mmol/L
[2020-02-23] MEDS: 0.9 % SODIUM CHLORIDE 10 ML SYRINGE IV SCH ×2 (15:13→22:20)
[2020-02-23] MEDS ORDERED: DEXTROSE 50% 50 ML VIAL IV ONE (19:07)
[2020-02-23] MEDS ORDERED: SENNOSIDES/DOCUSATE SODIUM 1 TAB TABLET PO SCH (21:00)
[2020-02-23] MEDS: MUPIROCIN OINT 2% 22GM NARES SCH (21:06)
[2020-02-24] MEDS ORDERED: DEXTROSE 50% 50 ML VIAL IV ONE (01:10)
[2020-02-24 02:16] LABS: Carbon Dioxide 13 mmol/L (22-30); Chloride 106 mmol/L (96-108)
[2020-02-24] MEDS: INSULIN REGULAR, HUMAN 50 UNIT in 0.9 % SODIUM CHLORIDE 99.5 ML IV SCH ×2 (02:52→06:30)
[2020-02-24 04:06] LABS: Carbon Dioxide 18 mmol/L (22-30); Chloride 103 mmol/L (96-108)
[2020-02-24] MEDS: DEXTROSE 5%-1/2NS 1,000 ML IV SCH ×2 (06:00→09:09)
[2020-02-24] MEDS: 0.9 % SODIUM CHLORIDE 10 ML SYRINGE IV SCH ×2 (06:03→14:27)
[2020-02-24 06:50] LABS: Basophils # (Auto) 0.04 K/mcL (0.00-0.20); Basophils % (Auto) 0.4 % (0.0-2.0); Eosinophils # (Auto) 0.14 K/mcL (0.00-0.70); Eosinophils % (Auto) 1.5 % (0.0-7.0); Hematocrit 37.6 % (36.0-48.0); Hemoglobin 12.2 g/dL (12.0-15.0); Lymphocytes % (Auto) 27.1 % (15.0-49.0); Mean Cell Volume 90.6 fL (80.0-100.0); Mean Corpuscular HGB Conc 32.4 g/dL (31.0-36.0); Mean Platelet Volume 9.7 fL (7.4-10.4); Monocytes # (Auto) 0.68 K/mcL (0.10-0.90); Monocytes % (Auto) 7.4 % (1.0-12.0); Neutrophils % (Auto) 63.6 % (38.0-78.0); Platelet Count 292 K/mcL (140-440); RBC 4.15 M/mcL (4.00-5.20); Red Cell Distribution Width 13.3 % (11.5-14.5); WBC 9.2 K/mcL (4.5-11.0)
[2020-02-24 07:38] LABS: ALT/SGPT 9 U/L (<40); AST/SGOT 13 U/L (<32); Albumin 3.7 gm/dL (3.2-5.2); Albumin/Globulin Ratio 1.4 (1.0-2.3); Alkaline Phosphatase 89 U/L (39-117); Beta Hydroxybutyrate 2.48 mmol/L (<0.27); Bilirubin,Direct < 0.2 mg/dL (<0.3); Bilirubin,Total 0.6 mg/dL (0.1-1.0); Blood Urea Nitrogen 7 mg/dL (6-20); Calcium 8.4 mg/dL (8.6-10.4); Carbon Dioxide 17 mmol/L (22-30); Chloride 103 mmol/L (96-108); Globulin 2.6 gm/dL (2.2-3.7); Glomerular Filtration Rate 120; Glucose 201 mg/dL (70-105); Lactate Dehydrogenase 178 U/L (135-225); Phosphorous 2.5 mg/dL (2.5-4.5); Triglycerides 75 mg/dL (<150); Uric Acid 5.2 mg/dL (2.5-8.0)
[2020-02-24] MEDS: DOCUSATE SODIUM 100 MG CAPSULE PO SCH (09:08)
[2020-02-24] MEDS: MUPIROCIN OINT 2% 22GM NARES SCH (09:18)
[2020-02-24] MEDS: MULTIVIT,THER IRON,CA,FA & MIN 1 TABLET PO SCH (09:18)
[2020-02-24 11:28] LABS: Carbon Dioxide 20 mmol/L (22-30); Chloride 100 mmol/L (96-108)
--- NOTE | 2020-02-24 14:53 | Discharge Summary ---
Discharge Provider Provider Patient information: Note initiated : 02/24/20 at 2:51 pm Service Date, if different from initiated Date: [] Patient: Yue Lucas a 24 y/o F admitted on 02/23/20 for DKA. Discharge diagnosis * DKA resolved with management protocol. Likely precipitant pump malfunction. Brief hospital course History of present illness: Ms. 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 Patient has had good control of her diabetes and currently on a Medtronic insulin pump. She denies any precipitating events including flulike symptoms. She actually has been tested twice for Covid in the last 2 weeks. Initial work-up in the ER was consistent with severe DKA with increased gap /acidosis/elevated beta hydroxybutyrate and blood sugars over 700. Patient was started on crystalloid/insulin drip and subsequent hospital service was consulted At the time of my evaluation patient is alert and oriented. She denies any active distress. She fell that her insulin pump has been malfunctioning but denies any other precipitating events or URI symptoms, diarrhea, fever. 02/23-patient did well with aggressive management per DKA protocol on insulin drip. Patient was transitioned to subcu insulin. Anion gap normalized/bicarb normalized. Tolerating diabetic diet. Discharging advised to continue follow- up with primary care physician. Date of admission: 02/23/20 09:36 Discharge date: 02/24/20 Primary care physician: Naina Yadav Consults: 02/23/20 08:13 Consult to Physician [CONS] Stat Comment: Consulting Provider: Cal Pennington Reason For Exam: Physician to Consult Discharge Meds Discharge Medications Home Medications L norgest/e.estradiol-e.estrad 1 tab PO DAILY 04/03/19 [History Confirmed 02/23/20 Last Taken Unknown] insulin aspart U-100 52 - 70 units SQ DAILY 04/03/19 [History Confirmed 02/23/20 Last Taken Unknown] insulin degludec 43 unit SQ DAILY 04/03/19 [History Confirmed 02/23/20 Last Taken Unknown] dapsone 1 applic TOPICAL QDAY 02/23/20 [History Confirmed 02/23/20 Last Taken U nknown] COURSE Hospital Course Hospital course: . Discharge diagnosis: DKA Time Spent with Patient Time attestation: Total time spent providing and/or coordinating discharge services: EXAM Constitutional Vitals: Temp Pulse Resp BP Pulse Ox 97.4 F 121 H 16 104/60 100 02/24/20 12:00 02/23/20 10:00 02/24/20 12:03 02/24/20 12:00 02/24/20 12:00 Discharge Data Data Completed and Pending Labs on day of discharge: Labs from last 24 hours 02/24/20 02/24/20 02/24/20 09:38 05:35 05:35 WBC 9.2 RBC 4.15 Hgb 12.2 Hct 37.6 MCV 90.6 MCH 29.4 MCHC 32.4 RDW 13.3 Plt Count 292 MPV 9.7 Neut % (Auto) 63.6 Lymph % (Auto) 27.1 [place] % (Auto) 7.4 Eos % (Auto) 1.5 Baso % (Auto) 0.4 Lymph # (Auto) 2.50 [place] # (Auto) 0.68 Eos # (Auto) 0.14 Baso # (Auto) 0.04 Absolute Neutrophils 5.85 Sodium 133 134 Potassium 3.5 3.7 Chloride 100 103 Carbon Dioxide 20 L 17 L Anion Gap 13.0 14.0 BUN 7 Creatinine 0.7 GFR Calculation 120 Glucose 201 H Uric Acid 5.2 Calcium 8.4 L Phosphorus 2.5 Magnesium 1.8 Total Bilirubin 0.6 Direct Bilirubin < 0.2 GGT 9 AST 13 ALT 9 Alkaline Phosphatase 89 Lactate Dehydrogenase 178 Total Protein 6.3 Albumin 3.7 Globulin 2.6 Albumin/Globulin Ratio 1.4 Triglycerides 75 Beta-Hydroxybutyrate 2.48 H 02/24/20 02/23/20 02:50 17:49 WBC RBC Hgb Hct MCV MCH MCHC RDW Plt Count MPV Neut % (Auto) Lymph % (Auto) [place] % (Auto) Eos % (Auto) Baso % (Auto) Lymph # (Auto) [place] # (Auto) Eos # (Auto) Baso # (Auto) Absolute Neutrophils Sodium 133 138 Potassium 4.4 4.3 Chloride 103 106 Carbon Dioxide 18 L 13 L Anion Gap 12.0 19.0 H BUN Creatinine GFR Calculation Glucose Uric Acid Calcium Phosphorus Magnesium Total Bilirubin Direct Bilirubin GGT AST ALT Alkaline Phosphatase Lactate Dehydrogenase Total Protein Albumin Globulin Albumin/Globulin Ratio Triglycerides Beta-Hydroxybutyrate Discharge Plan Patient/Caregiver Discharge Instructions Activity: increase activity as tolerated Diet: Consistent Carbohydrate Instructions: Diabetic Ketoacidosis (GEN) Activity Restrictions/Additional Instructions: This discharge packet is provided to you to help keep you informed about your care. We want to ensure you get everything you need when you go home. You will also be receiving a call from us in a few days to follow up with you and see how you are doing since your discharge. This gives us a chance to listen to any concerns you maybe experiencing since you were discharged or any additional needs you may have, as well as providing us feedback on your care experience. We strive to always provide excellent care and thank you for your feedback and for choosing [facility]. Prescriptions: No Action insulin aspart U-100 100/ML solution 52 - 70 units SQ DAILY RF: 0 L norgest/e.estradiol-e.estrad 1 EACH tablets,dose pack,3 month 1 tab PO DAILY RF: 0 insulin degludec 100 UNIT/ML insulin pen 43 unit SQ DAILY RF: 0 dapsone 7.5 % gel with pump 1 applic TOPICAL QDAY RF: 0 Follow Up Plan Follow up with: Naina Yadav MD [Primary Care Provider] - 03/08/20 11:00 am (Please check in at 10:50 am.) Patient Disposition: Home, Self-Care Rehab Potential: Fair Overall status at discharge: patient is progressing back to baseline Discharge Orders: Discharge Order (Routine); Ordered 02/24/20 Ordered By: Cal MARTINEZ VTE Deep Vein Thrombosis/Pulmonary Embolism Present on Admission: No
== END 2020-02-24 16:00 | disposition home or self-care (01) | DRG 919 ==
LOC: ED 06:24 → ICU 09:36
PROVIDERS: ADMIT Internal Medicine; ATTEND Internal Medicine

== ENCOUNTER 2020-05-01 18:14 | Inpatient (IN) ==
[2020-05-01] MEDS ORDERED: IOPAMIDOL 100 ML BOTTLE IV ONE (18:15)
[2020-05-01] MEDS ORDERED: 0.9 % SODIUM CHLORIDE 1,000 ML IV ONE ×3 (18:23→20:25)
[2020-05-01] MEDS ORDERED: INSULIN REGULAR, HUMAN 1 UNIT/0.01 ML UNIT IV ONE (18:23)
[2020-05-01] MEDS ORDERED: INSULIN REGULAR, HUMAN 50 UNIT in 0.9 % SODIUM CHLORIDE 99.5 ML IV SCH (18:30)
--- NOTE | 2020-05-01 18:52 | XRay Report ---
INDICATION: dyspnea TECHNIQUE: AP portable upright chest x-ray COMPARISON: None FINDINGS:There are 3 catheters overlying the chest consistent with ventriculoperitoneal shunt catheters. The right-sided catheter is broken. Lungs:Lungs are negative. No focal pulmonary parenchymal infiltrate or mass Heart, vascular:No significant cardiomegaly. Pulmonary vascularity is normal. No pulmonary edema or pulmonary congestion Mediastinum, abdiel:No mediastinal widening. No hilar mass Pleura:No pleural fluid. No pleural-based mass or calcification Skeletal:Negative. IMPRESSION: Negative AP chest x-ray Interpreted and Authenticated by: Eric Rich 05/01/20
--- NOTE | 2020-05-01 18:55 | Emergency Department Note ---
HPI General Chief complaint: Blood Sugar Problem Stated complaint: short of breath Time Seen by Provider: 05/01/20 18:22 Source: patient Mode of arrival: ambulatory Limitations: no limitations History of Present Illness HPI Narrative: Narrative: 24-year-old female type I diabetic comes in with very high blood sugars. She is complaining of shortness of breath. Denies fever or recent illness. It started this morning. She is having nausea but no vomiting. She has 3 roommates and none of them are sick. She does take oral contraceptives but is a non-smoker. 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 Last test several weeks ago Related Data Home Medications Medication Instructions Recorded Confirmed insulin aspart U-100 52 - 70 units SQ DAILY 04/03/19 04/20/20 dapsone 1 applic TOPICAL QDAY 02/23/20 04/20/20 L norgest/e.estradiol-e.estrad 1 tab PO QDAY 03/04/20 04/20/20 0.15 mg-30 mcg (84)/10 mcg(7) tabs,3mos ampicillin 500 mg capsule 500 mg PO BID cap 03/04/20 04/20/20 diclofenac sodium 1 % topical gel g TOPICAL 03/22/20 04/20/20 insulin degludec 100 unit/mL (3 35 unit SUBCUT DAILY ml 03/22/20 04/20/20 mL) subcutaneous pen Previous Rx's Medication Instructions Recorded glucagon 1 mg/0.2 mL subcutaneous 1 mg SUB-Q Q20M PRN #0.4 ml 03/22/20 syringe terbinafine HCl 1 % topical cream 1 applic TOPICAL BID #15 g 04/20/20 Allergies Allergy/AdvReac Type Severity Reaction Status Date / Time No Known Drug Allergies Allergy Verified 04/20/20 11:28 Review of Systems ROS ROS Narrative: Narrative: All systems ED: reviewed and negative except as stated. PFSH Narrative Patient History Narrative: Narrative: Medical/Surgical/Family History All Active Problems (Updated 05/01/20 @ 18:56 by Kevin Kothari MD) Toenail fungus (Acute) History of surgical procedure (Acute) History of brain surgery (Acute ~01/1996) DKA (diabetic ketoacidoses) (Acute) residential (current) use of insulin (Acute) Hyperglycemia due to type 1 diabetes mellitus (Acute) Osteoarthritis (Acute) Type 1 diabetes mellitus (Acute) Hayfever (Acute) Medical History DKA (diabetic ketoacidoses) (Acute) Hayfever (Acute) History of brain tumor (Acute) Removed at 18 months old. Currently has shunt placed. 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) Osteoarthritis (Acute) Toenail fungus (Acute) Type 1 diabetes mellitus (Acute) 2000 at 4 years old Surgical History History of brain surgery (Acute ~01/1996) removal of brain tumor at 18 months old History of surgical procedure (Acute) Shunt Placement x2(05/1996 & 1997) Shunt revision x3(04/2009 & 2018) Family History Grandfather Colon cancer Maternal High blood pressure Grandmother Type 2 diabetes mellitus High blood pressure Mother High blood pressure Social History Smoking Status: Never smoker Alcohol Intake Frequency: does not drink Substance Use: does not use Exam Narrative Narrative: Normocephalic atraumatic. Conjunctive are clear sclerae white nonicteric. No nasal discharge or congestion. Oropharynx pink moist. She does have acne scarring bilateral cheeks. Neck is supple without lymphadenopathy thyromegaly. Heart is regular rate and rhythm no murmur appreciated. Lungs clear to auscultation bilaterally without wheezes rales rhonchi -however she does have sort of gasping breathing consistent with DKA-but she is moving air well. Abdomen is soft nontender nondistended. She is wearing bilateral ankle braces because she has some arthritis in the left ankle-the right is for stability she says. She is not diaphoretic and is alert oriented able to answer questions appropriate General Limitations: no limitations Course Vital Signs Vital signs: Vital Signs Temperature 98.0 F 05/01/20 18:15 Pulse Rate 125 H 05/01/20 18:15 Respiratory Rate 22 05/01/20 18:15 Blood Pressure 141/97 05/01/20 18:15 Pulse Oximetry (%) 100 05/01/20 18:15 Temperature 98.0 F 02/13/21 18:15 Pulse Rate 125 H 05/01/20 18:15 Respiratory Rate 22 05/01/20 18:15 Blood Pressure 141/97 05/01/20 18:15 Pulse Oximetry (%) 100 05/01/20 18:15 MDM MDM Narrative Medical decision making narrative: Narrative: Relatively quick onset DKA. Orde red laboratory ABG chest x-ray fluids and insulin bolus. Insulin drip to follow. SARS Covid testing as well. Patient likely will be admitted. Shift change came and patient will be checked out to Dr. Campbell. Further testing and disposition per him See preliminary results below Lab Data Lab results reviewed: Yes I reviewed the patient's lab results. Lab results narrative: Arterial blood gas shows a pH of 7.16 PCO2 of 7 PO2 131 lactic acid 2.4 Result diagrams: 05/01/20 18:34 05/01/20 18:33 Radiology Data Radiology results reviewed: Yes I reviewed the patient's radiology results. Radiology results narrative: Chest x-ray shows no acute infiltrate Discharge Plan Patient/Caregiver Discharge Instructions Pt seen by CONSTRUCTION CARPENTER/PA only: No Clinical Impression: DKA (diabetic ketoacidoses) Patient Disposition: Still a Patient Condition: Fair Follow up with: Elsy Linn DO [Primary Care Provider] - Prescriptions: No Action L norgest/e.estradiol-e.estrad [Simpesse] 0.15 mg-30 mcg (84)/10 mcg (7) tablets,dose pack,3 month 1 tab PO QDAY RF: 0 ampicillin 500 mg capsule 500 mg PO BID RF: 0 diclofenac sodium 1 % gel TOPICAL RF: 0 glucagon 1 mg/0.2 mL syringe 1 mg SUB-Q Q20M PRN (Reason: hypoglycemia) Qty: 0.4 RF: 2 terbinafine HCl [Antifungal (terbinafine)] 1 % cream 1 applic TOPICAL BID Qty: 15 RF: 2 insulin aspart U-100 100/ML solution 52 - 70 units SQ DAILY RF: 0 insulin degludec 100 unit/mL (3 mL) insulin pen 35 unit subcut DAILY RF: 0 dapsone 7.5 % gel with pump 1 applic TOPICAL QDAY RF: 0
[2020-05-01 19:37] LABS: Basophils # (Auto) 0.08 K/mcL (0.00-0.20); Basophils % (Auto) 0.7 % (0.0-2.0); Eosinophils # (Auto) 0.01 K/mcL (0.00-0.70); Eosinophils % (Auto) 0.1 % (0.0-7.0); Hematocrit 48.7 % (36.0-48.0); Hemoglobin 15.4 g/dL (12.0-15.0); Lymphocytes # (Auto) 2.32 K/mcL (1.50-4.80); Lymphocytes % (Auto) 20.2 % (15.0-49.0); Mean Cell Volume 92.4 fL (80.0-100.0); Mean Corpuscular HGB Conc 31.6 g/dL (31.0-36.0); Mean Platelet Volume 10.4 fL (7.4-10.4); Monocytes # (Auto) 1.13 K/mcL (0.10-0.90); Monocytes % (Auto) 9.8 % (1.0-12.0); Neutrophils % (Auto) 69.2 % (38.0-78.0); Platelet Count 288 K/mcL (140-440); RBC 5.27 M/mcL (4.00-5.20); WBC 11.5 K/mcL (4.5-11.0)
[2020-05-01 19:56] LABS: Amphetamine Screen,Urine None detected; Barbiturate Screen,Urine None detected; Benzodiazepines Screen,Urine None detected; Cannabinoid Screen,Urine None detected; Cocaine Screen,Urine None detected; Opiate Screen,Urine None detected; Oxycodone, Urine Screen None detected; Phencyclidine Screen,Urine None detected
[2020-05-01 19:58] LABS: proBNP 46.5 pg/mL (<125.0)
[2020-05-01 20:06] LABS: Beta Hydroxybutyrate 14.95 mmol/L (<0.27)
[2020-05-01 20:07] LABS: ALT/SGPT 15 U/L (<40); AST/SGOT 15 U/L (<32); Albumin/Globulin Ratio 1.8 (1.0-2.3); Alkaline Phosphatase 155 U/L (39-117); Bilirubin,Total 0.3 mg/dL (0.1-1.0); Blood Urea Nitrogen 14 mg/dL (6-20); Calcium 9.5 mg/dL (8.6-10.4); Carbon Dioxide 5 mmol/L (22-30); Chloride 90 mmol/L (96-108); Globulin 2.8 gm/dL (2.2-3.7); Glomerular Filtration Rate 48; Glucose 660 mg/dL (70-105)
[2020-05-01 20:25] LABS: Appearance,Urine CLEAR (Clear); Bilirubin,Urine Negative (Negative); Color,Urine Straw; Culture Indicated,Urine No; Glucose,Urine (UA) >=500 mg/dL (Negative); Ketones,Urine 80 mg/dL (Negative); Leukocyte Esterase,Urine Negative /ug (Negative); Mucus,Urine FEW /hpf; Nitrate,Urine Negative (Negative); Protein,Urine Negative (Negative); Specific Gravity,Urine 1.027 (1.000-1.035); Urine Blood Negative (Negative); Urine Hyaline Cast 3 /lph (0-2); Urine RBC 1 /hpf (0-3); Urine Squamous Epithelial Cell 6 /hpf (0-4); Urine WBC 3 /hpf (0-4); Urobilinogen,Urine Negative
--- NOTE | 2020-05-01 21:05 | Emergency Department Note ---
HPI General Chief complaint: Blood Sugar Problem Stated complaint: short of breath Time Seen by Provider: 05/01/20 18:22 Source: patient Mode of arrival: ambulatory Limitations: no limitations History of Present Illness HPI Narrative: Narrative: See history and physical dictated by Dr. Kothari. In summary, patient has felt a little bit ill yesterday and today and then became short of breath today. She has had a little bit of chills but no other signs or symptoms of infectious nature. She has not felt much appetite today and has eaten fairly low-carb. She has not been on her insulin pump due to it seeming to not work well or work out well for her. Dr. Kothari ordered multiple labs. ABG came back as we were speaking at the change in shift, pH 7.16, low bicarb, with a markedly elevated anion gap. Elevated blood sugars. Insulin 10 units given IV plus a drip and fluids. Related Data Home Medications Medication Instructions Recorded Confirmed insulin aspart U-100 52 - 70 units SQ DAILY 04/03/19 04/20/20 dapsone 1 applic TOPICAL QDAY 02/23/20 04/20/20 L norgest/e.estradiol-e.estrad 1 tab PO QDAY 03/04/20 04/20/20 0.15 mg-30 mcg (84)/10 mcg(7) tabs,3mos ampicillin 500 mg capsule 500 mg PO BID cap 03/04/20 04/20/20 diclofenac sodium 1 % topical gel g TOPICAL 03/22/20 04/20/20 insulin degludec 100 unit/mL (3 35 unit SUBCUT DAILY ml 03/22/20 04/20/20 mL) subcutaneous pen Previous Rx's Medication Instructions Recorded glucagon 1 mg/0.2 mL subcutaneous 1 mg SUB-Q Q20M PRN #0.4 ml 03/22/20 syringe terbinafine HCl 1 % topical cream 1 applic TOPICAL BID #15 g 04/20/20 Allergies Allergy/AdvReac Type Severity Reaction Status Date / Time No Known Drug Allergies Allergy Verified 04/20/20 11:28 Review of Systems ROS ROS Narrative: Narrative: She reports weakness of her left side due to a stroke related to her brain surgery at age 18 months. Mild fatigue for 2 days. Her menses are regular including about 2 weeks ago. She is not sexually active and is on oral contraceptives. 12 Systems Reviewed - negative except as mentioned above. 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 Currently has shunt placed. Hyperglycemia due to type 1 diabetes mellitus (Acute) [facility] (current) use of insulin (Acute) Osteoarthritis (Acute) Toenail fungus (Acute) Type 1 diabetes mellitus (Acute) 2000 at 4 years old Surgical History (Updated 05/01/20 @ 20:57 by Noah Campbell DO) History of brain surgery (Inactive ~01/1996) removal of brain tumor at 18 months old. Reports this was not cancer (05/01/2020) History of surgical procedure (Acute) Shunt Placement x2(05/1996 & 1997) Shunt revision x3(04/2009 & 2018) Family History Grandfather Colon cancer Maternal High blood pressure Grandmother Type 2 diabetes mellitus High blood pressure Mother High blood pressure Social History Smoking Status: Never smoker Alcohol Intake Frequency: does not drink Substance Use: does not use Exam Narrative Narrative: Narrative: General: No acute distress although seems a bit tachypneic. This may have an anxiety component. She is trying to slow it down but it seems rapid. She is not particularly short of breath. Is able to speak in full sentences. Eyes: Extraocular muscles intact. Left eye has a small area of injection and a wedge-shaped inferiorly on the white of the eye. Lungs: Clear to auscultation CV: Regular without murmur Abdomen soft and nontender Extremities: Without cyanosis or clubbing. Normal temperature. Neuro: Extraocular muscles intact. Psych: Somewhat serious. Normal eye contact. No hallucinations or delusions. General Limitations: no limitations Course Vital Signs Vital signs: Vital Signs Temperature 98.0 F 05/01/20 18:15 Pulse Rate 125 H 05/01/20 18:15 Respiratory Rate 22 05/01/20 18:15 Blood Pressure 141/97 05/01/20 18:15 Pulse Oximetry (%) 100 05/01/20 18:15 Temperature 98.0 F 05/01/20 18:15 Pulse Rate 110 H 05/01/20 22:00 Respiratory Rate 25 H 05/01/20 22:00 Blood Pressure 136/84 05/01/20 22:00 Pulse Oximetry (%) 100 05/01/20 22:00 [facility] MDM Narrative Medical decision making narrative: Narrative: 8:30 PM - patient's D-dimer comes back 1.27. With her as appearing as tachypneic as she is, and this elevation, will rule out PE. I suspect that there is more likely tachypnea based on her ketosis and anxiety as the primary underlying causes. But must rule out PE. She is significantly dehydrated with her creatinine 1.5 so will make sure she is well-hydrated; her usual creatinines are around 0.9. Sodium of 128 is pseudohyponatremia of her hyperglycemia. Her blood sugars are coming down. Was started at 3 units/h and it appears that her glucose came down 110 points. We will decrease this rate to 2 units/hr. 8:58 PM - patient's Accu-Chek is come down to 384 range which is a little too fast so will stop her drip. POC Chem-8 still pending to recheck her potassium and creatinine. 9:40 PM - CT angio of the chest: "Slightly limited study due to respiratory motion, no pulmonary embolus identified. Mild proximal bronchial may reflect mild bronchitis." This is the preliminary report from [facility]. 9:50 PM - I spoke with Dr. Pennington, hospitalist, who is willing to accept this patient for inpatient care. Lab Data Result diagrams: 05/01/20 18:34 05/01/20 18:33 Labs: Lab Results 05/01/20 05/01/20 05/01/20 Range/Units 18:33 18:34 18:34 WBC 11.5 H (4.5-11.0) K/mcL RBC 5.27 H (4.00-5.20) M/mcL Hgb 15.4 H (12.0-15.0) g/dL Hct 48.7 H (36.0-48.0) % POC Hct (36-48) % MCV 92.4 (80.0-100.0) fL MCH 29.2 (26.0-34.0) pg MCHC 31.6 (31.0-36.0) g/dL RDW 14.0 (11.5-14.5) % Plt Count 288 (140-440) K/mcL MPV 10.4 (7.4-10.4) fL Neut % (Auto) 69.2 (38.0-78.0) % Lymph % (Auto) 20.2 (15.0-49.0) % Pettis % (Auto) 9.8 (1.0-12.0) % Eos % (Auto) 0.1 (0.0-7.0) % Baso % (Auto) 0.7 (0.0-2.0) % Lymph # (Auto) 2.32 (1.50-4.80) K/mcL Pettis # (Auto) 1.13 H (0.10-0.90) K/mcL Eos # (Auto) 0.01 (0.00-0.70) K/mcL Baso # (Auto) 0.08 (0.00-0.20) K/mcL Absolute Neutrophils 7.94 (1.80-8.00) K/mcL D-Dimer 1.27 H (0.27-0.50) ug/mL VBG Lactic Acid (0.5-2.0) mmol/L POC Sodium (133-145) mEq/L Sodium 128 L (133-145) mmol/L POC Potassium (3.3-5.1) mEql/L Potassium 5.6 H (3.3-5.1) mmol/L POC Chloride (96-108) mEq/L Chloride 90 L (96-108) mmol/L Carbon Dioxide 5 L* (22-30) mmol/L POC Total CO2 (22-30) mmol/L Anion Gap 33.0 H (8.0-16.0) POC BUN (6-20) mg/dL BUN 14 (6-20) mg/dL Creatinine 1.5 H (0.6-1.1) mg/dL POC Creatinine (0.6-1.2) mg/dL GFR Calculation 48 Glucose 660 H* (70-105) mg/dL POC Glucose (70-105) mg/dL Calcium 9.5 (8.6-10.4) mg/dL POC WB Ioniz Calcium (1.16-1.32) mmEq/L Magnesium 2.2 (1.6-2.5) mg/dL Total Bilirubin 0.3 (0.1-1.0) mg/dL AST 15 (<32) U/L ALT 15 (<40) U/L Alkaline Phosphatase 155 H (39-117) U/L NT-Pro-B Natriuret Pep 46.5 (<125.0) pg/mL Total Protein 7.8 (5.9-8.4) gm/dL Albumin 5.0 (3.2-5.2) gm/dL Globulin 2.8 (2.2-3.7) gm/dL Albumin/Globulin Ratio 1.8 (1.0-2.3) Lipase 13 (7-60) U/L Beta-Hydroxybutyrate 14.95 H (<0.27) mmol/L Procalcitonin (<0.10) ng/mL Urine Color Urine Appearance (Clear) Urine pH (5.0-9.0) Ur Specific Ethel (1.000-1.035) Urine Protein (Negative) mg/dL Urine Glucose (UA) (Negative) mg/dL Urine Ketones (Negative) mg/dL Urine Occult Blood (Negative) mg/dL Urine Nitrate (Negative) Urine Bilirubin (Negative) mg/dL Urine Urobilinogen mg/dL Ur Leukocyte Esterase (Negative) /ug Urine RBC (0-3) /hpf Urine WBC (0-4) /hpf Ur Squamous Epith Cells (0-4) /hpf Urine Bacteria (0) /hpf Hyaline Casts (0-2) /lph Urine Mucus (None) /hpf Ur Culture Indicated? Urine Opiates Screen Ur Oxycodone Screen Urine Methadone Screen Ur Barbiturates Screen Ur Phencyclidine Scrn Ur Amphetamines Screen U Benzodiazepines Scrn Urine Cocaine Screen U Marijuana (THC) Screen 05/01/20 05/01/20 05/01/20 Range/Units 18:34 18:35 19:16 WBC (4.5-11.0) K/mcL RBC (4.00-5.20) M/mcL Hgb (12.0-15.0) g/dL Hct (36.0-48.0) % POC Hct (36-48) % MCV (80.0-100.0) fL MCH (26.0-34.0) pg MCHC (31.0-36.0) g/dL RDW (11.5-14.5) % Plt Count (140-440) K/mcL MPV (7.4-10.4) fL Neut % (Auto) (38.0-78.0) % Lymph % (Auto) (15.0-49.0) % Pettis % (Auto) (1.0-12.0) % Eos % (Auto) (0.0-7.0) % Baso % (Auto) (0.0-2.0) % Lymph # (Auto) (1.50-4.80) K/mcL Pettis # (Auto) (0.10-0.90) K/mcL Eos # (Auto) (0.00-0.70) K/mcL Baso # (Auto) (0.00-0.20) K/mcL Absolute Neutrophils (1.80-8.00) K/mcL D-Dimer (0.27-0.50) ug/mL VBG Lactic Acid 3.5 H (0.5-2.0) mmol/L POC Sodium (133-145) mEq/L Sodium (133-145) mmol/L POC Potassium (3.3-5.1) mEql/L Potassium (3.3-5.1) mmol/L POC Chloride (96-108) mEq/L Chloride (96-108) mmol/L Carbon Dioxide (22-30) mmol/L POC Total CO2 (22-30) mmol/L Anion Gap (8.0-16.0) POC BUN (6-20) mg/dL BUN (6-20) mg/dL Creatinine (0.6-1.1) mg/dL POC Creatinine (0.6-1.2) mg/dL GFR Calculation Glucose (70-105) mg/dL POC Glucose (70-105) mg/dL Calcium (8.6-10.4) mg/dL POC WB Ioniz Calcium (1.16-1.32) mmEq/L Magnesium (1.6-2.5) mg/dL Total Bilirubin (0.1-1.0) mg/dL AST (<32) U/L ALT (<40) U/L Alkaline Phosphatase (39-117) U/L NT-Pro-B Natriuret Pep (<125.0) pg/mL Total Protein (5.9-8.4) gm/dL Albumin (3.2-5.2) gm/dL Globulin (2.2-3.7) gm/dL Albumin/Globulin Ratio (1.0-2.3) Lipase (7-60) U/L Beta-Hydroxybutyrate (<0.27) mmol/L Procalcitonin 0.30 H (<0.10) ng/mL Urine Color Urine Appearance (Clear) Urine pH (5.0-9.0) Ur Specific Ethel (1.000-1.035) Urine Protein (Negative) mg/dL Urine Glucose (UA) (Negative) mg/dL Urine Ketones (Negative) mg/dL Urine Occult Blood (Negative) mg/dL Urine Nitrate (Negative) Urine Bilirubin (Negative) mg/dL Urine Urobilinogen mg/dL Ur Leukocyte Esterase (Negative) /ug Urine RBC (0-3) /hpf Urine WBC (0-4) /hpf Ur Squamous Epith Cells (0-4) /hpf Urine Bacteria (0) /hpf Hyaline Casts (0-2) /lph Urine Mucus (None) /hpf Ur Culture Indicated? Urine Opiates Screen None detected Ur Oxycodone Screen None detected Urine Methadone Screen None detected Ur Barbiturates Screen None detected Ur Phencyclidine Scrn None detected Ur Amphetamines Screen None detected U Benzodiazepines Scrn None detected Urine Cocaine Screen None detected U Marijuana (THC) Screen None detected 05/01/20 05/01/20 Range/Units 19:16 20:53 WBC (4.5-11.0) K/mcL RBC (4.00-5.20) M/mcL Hgb (12.0-15.0) g/dL Hct (36.0-48.0) % POC Hct 50 H (36-48) % MCV (80.0-100.0) fL MCH (26.0-34.0) pg MCHC (31.0-36.0) g/dL RDW (11.5-14.5) % Plt Count (140-440) K/mcL MPV (7.4-10.4) fL Neut % (Auto) (38.0-78.0) % Lymph % (Auto) (15.0-49.0) % Pettis % (Auto) (1.0-12.0) % Eos % (Auto) (0.0-7.0) % Baso % (Auto) (0.0-2.0) % Lymph # (Auto) (1.50-4.80) K/mcL Pettis # (Auto) (0.10-0.90) K/mcL Eos # (Auto) (0.00-0.70) K/mcL Baso # (Auto) (0.00-0.20) K/mcL Absolute Neutrophils (1.80-8.00) K/mcL D-Dimer (0.27-0.50) ug/mL VBG Lactic Acid (0.5-2.0) mmol/L POC Sodium 137 (133-145) mEq/L Sodium (133-145) mmol/L POC Potassium 5.3 H (3.3-5.1) mEql/L Potassium (3.3-5.1) mmol/L POC Chloride 111 H (96-108) mEq/L Chloride (96-108) mmol/L Carbon Dioxide (22-30) mmol/L POC Total CO2 8 L* (22-30) mmol/L Anion Gap (8.0-16.0) POC BUN 16 (6-20) mg/dL BUN (6-20) mg/dL Creatinine (0.6-1.1) mg/dL POC Creatinine 0.9 (0.6-1.2) mg/dL GFR Calculation Glucose (70-105) mg/dL POC Glucose 352 H (70-105) mg/dL Calcium (8.6-10.4) mg/dL POC WB Ioniz Calcium 1.15 L (1.16-1.32) mmEq/L Magnesium (1.6-2.5) mg/dL Total Bilirubin (0.1-1.0) mg/dL AST (<32) U/L ALT (<40) U/L Alkaline Phosphatase (39-117) U/L NT-Pro-B Natriuret Pep (<125.0) pg/mL Total Protein (5.9-8.4) gm/dL Albumin (3.2-5.2) gm/dL Globulin (2.2-3.7) gm/dL Albumin/Globulin Ratio (1.0-2.3) Lipase (7-60) U/L Beta-Hydroxybutyrate (<0.27) mmol/L Procalcitonin (<0.10) ng/mL Urine Color Straw Urine Appearance Clear (Clear) Urine pH 5.0 (5.0-9.0) Ur Specific Ethel 1.027 (1.000-1.035) Urine Protein Negative (Negative) mg/dL Urine Glucose (UA) >=500 A (Negative) mg/dL Urine Ketones 80 A (Negative) mg/dL Urine Occult Blood Negative (Negative) mg/dL Urine Nitrate Negative (Negative) Urine Bilirubin Negative (Negative) mg/dL Urine Urobilinogen Negative mg/dL Ur Leukocyte Esterase Negative (Negative) /ug Urine RBC 1 (0-3) /hpf Urine WBC 3 (0-4) /hpf Ur Squamous Epith Cells 6 H (0-4) /hpf Urine Bacteria None (0) /hpf Hyaline Casts 3 H (0-2) /lph Urine Mucus Few A (None) /hpf Ur Culture Indicated? No Urine Opiates Screen Ur Oxycodone Screen Urine Methadone Screen Ur Barbiturates Screen Ur Phencyclidine Scrn Ur Amphetamines Screen U Benzodiazepines Scrn Urine Cocaine Screen U Marijuana (THC) Screen ED POC Tests ED POC Tests: DINH - SARS Antigen Negative HCG POC Results Negative Discharge Plan Patient/Caregiver Discharge Instructions Pt seen by [employer]/PA only: No Clinical Impression: DKA (diabetic ketoacidoses), Hyperkalemia, Elevated serum creatinine Patient Disposition: Xfer As Inpt ([facility]) Condition: Fair Follow up with: Elsy Linn DO [Primary Care Provider] - Prescriptions: No Action L norgest/e.estradiol-e.estrad [Simpesse] 0.15 mg-30 mcg (84)/10 mcg (7) tablets,dose pack,3 month 1 tab PO QDAY RF: 0 ampicillin 500 mg capsule 500 mg PO BID RF: 0 diclofenac sodium 1 % gel TOPICAL RF: 0 glucagon 1 mg/0.2 mL syringe 1 mg SUB-Q Q20M PRN (Reason: hypoglycemia) Qty: 0.4 RF: 2 terbinafine HCl [Antifungal (terbinafine)] 1 % cream 1 applic TOPICAL BID Qty: 15 RF: 2 insulin aspart U-100 100/ML solution 52 - 70 units SQ DAILY RF: 0 insulin degludec 100 unit/mL (3 mL) insulin pen 35 unit subcut DAILY RF: 0 dapsone 7.5 % gel with pump 1 applic TOPICAL QDAY RF: 0
[2020-05-01 21:26] LABS: POC Calcium, Ionized 1.15 mmEq/L (1.16-1.32); POC Creatinine 0.9 mg/dL (0.6-1.2); POC Potassium 5.3 mEql/L (3.3-5.1)
--- NOTE | 2020-05-01 21:58 | Internal Med History&Physical ---
HPI History of Present Illness Patient information: Note initiated : 05/01/20 at 9:58 pm Service Date, if different from initiated Date: [] Patient: Yue Lucas a 24 y/o F admitted on for short of breath. Chief Complaint: [] History of present illness: Ms. Lucas is a 24 year old F With a history of insulin-dependent diabeteswho recently was admitted with DKA secondary to insulin pump failure And was discharged on 02/23. Patient has been doing well using basal prandial insulin awaiting her new insulin pump. She has been doing well until the day prior to presentation. While at work patient noted increasing shortness of breath along with weakness and symptoms of increased polyuria and increased thirst. She associated nausea but denies any fever or sick contacts. She denies headache, photophobia joint pain or rash or diarrhea or dysuria. She presents to the ER where initial work-up was consistent with severe DKA with pH 7.1. White count 11.5, potassium 5.6, anion gap 33, creatinine 1.5 and bicarb at 5. Patient was rapidly started on crystalloid/insulin drip and subsequently hospital service was consulted At the time of evaluation patient is very anxious, labored rapid shallow breathing. Appears extremely dehydrated. Endorses to history as above. Does not recollect the exact onset of symptoms roughly between 24 to 36 hours. 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 Currently has shunt placed. 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 Reports this was not cancer (05/01/2020) History of surgical procedure (Acute) Shunt Placement x2(05/1996 & 1997) Shunt revision x3(04/2009 & 2018) Family History Grandfather Colon cancer Maternal High blood pressure Grandmother Type 2 diabetes mellitus High blood pressure Mother High blood pressure Social History marital status: single occupational status: employed occupation: [employer] smoking status: Never smoker alcohol intake frequency: does not drink substance use type: does not use MEDS/ALLERGIES Home Medications and Allergies Home Medications Medication Instructions Recorded Confirmed Type insulin aspart U-100 52 - 70 units SQ DAILY 04/03/19 04/20/20 History dapsone 1 applic TOPICAL QDAY 02/23/20 04/20/20 History L norgest/e.estradiol-e.estrad 1 tab PO QDAY 03/04/20 04/20/20 History 0.15 mg-30 mcg (84)/10 mcg(7) tabs,3mos ampicillin 500 mg capsule 500 mg PO BID cap 03/04/20 04/20/20 History diclofenac sodium 1 % topical gel g TOPICAL 03/22/20 04/20/20 History glucagon 1 mg/0.2 mL subcutaneous 1 mg SUB-Q Q20M PRN #0.4 ml 03/22/20 04/20/20 Rx syringe insulin degludec 100 unit/mL (3 35 unit SUBCUT DAILY ml 03/22/20 04/20/20 History mL) subcutaneous pen terbinafine HCl 1 % topical cream 1 applic TOPICAL BID #15 g 04/20/20 04/20/20 Rx Allergies Allergy/AdvReac Type Severity Reaction Status Date / Time No Known Drug Allergies Allergy Verified 04/20/20 11:28 EXAM Constitutional Vitals: Temp Pulse Resp BP Pulse Ox 98.0 F 103 H 20 105/92 100 05/01/20 18:15 05/01/20 21:46 05/01/20 21:46 05/01/20 21:46 05/01/20 21:46 Anxious and labored breathing Head normocephalic Oral cavity dry mucous membranes/parched lips No ear nose discharge Eye movement symmetrical Neck supple no lymphadenopathy S1-S2 tachycardia Tachypneic Nondistended nontender abdomen Lower extremity no cyanosis clubbing or joint swelling Skin no suspicious lesion Psych no elucidation Neuro normal higher function, GCS 15 DATA Data Completed and Pending Labs: Labs from last 24 hours 05/01/20 05/01/20 05/01/20 20:53 19:16 19:16 WBC RBC Hgb Hct POC Hct 50 H MCV MCH MCHC RDW Plt Count MPV Neut % (Auto) Lymph % (Auto) Hawkins % (Auto) Eos % (Auto) Baso % (Auto) Lymph # (Auto) Hawkins # (Auto) Eos # (Auto) Baso # (Auto) Absolute Neutrophils D-Dimer VBG Lactic Acid POC Sodium 137 Sodium POC Potassium 5.3 H Potassium POC Chloride 111 H Chloride Carbon Dioxide POC Total CO2 8 L* Anion Gap POC BUN 16 BUN Creatinine POC Creatinine 0.9 GFR Calculation Glucose POC Glucose 352 H Calcium POC WB Ioniz Calcium 1.15 L Magnesium Total Bilirubin AST ALT Alkaline Phosphatase NT-Pro-B Natriuret Pep Total Protein Albumin Globulin Albumin/Globulin Ratio Lipase Beta-Hydroxybutyrate Procalcitonin Urine Color Straw Urine Appearance Clear Urine pH 5.0 Ur Specific [place] 1.027 Urine Protein Negative Urine Glucose (UA) >=500 A Urine Ketones 80 A Urine Occult Blood Negative Urine Nitrate Negative Urine Bilirubin Negative Urine Urobilinogen Negative Ur Leukocyte Esterase Negative Urine RBC 1 Urine WBC 3 Ur Squamous Epith Cells 6 H Urine Bacteria None Hyaline Casts 3 H Urine Mucus Few A Ur Culture Indicated? No Urine Opiates Screen None detected Ur Opiates Confirm Pending Ur Oxycodone Screen None detected Urine Methadone Screen None detected Ur Methadone Confirm Pending Ur Barbiturates Screen None detected Ur Barbiturate Confirm Pending Ur Phencyclidine Scrn None detected Urine PCP Confirm Pending Ur Amphetamines Screen None detected U Amphetamines Confirm Pending U Benzodiazepines Scrn None detected U Benzodiazepine Confm Pending Urine Cocaine Screen None detected Urine Cocaine Confirm Pending U Cannabinoids Confirm Pending U Marijuana (THC) Screen None detected 05/01/20 05/01/20 05/01/20 18:35 18:34 18:34 WBC RBC Hgb Hct POC Hct MCV MCH MCHC RDW Plt Count MPV Neut % (Auto) Lymph % (Auto) Hawkins % (Auto) Eos % (Auto) Baso % (Auto) Lymph # (Auto) [place] # (Auto) Eos # (Auto) Baso # (Auto) Absolute Neutrophils D-Dimer 1.27 H VBG Lactic Acid 3.5 H POC Sodium Sodium POC Potassium Potassium POC Chloride Chloride Carbon Dioxide POC Total CO2 Anion Gap POC BUN BUN Creatinine POC Creatinine GFR Calculation Glucose POC Glucose Calcium POC WB Ioniz Calcium Magnesium Total Bilirubin AST ALT Alkaline Phosphatase NT-Pro-B Natriuret Pep Total Protein Albumin Globulin Albumin/Globulin Ratio Lipase Beta-Hydroxybutyrate Procalcitonin 0.30 H Urine Color Urine Appearance Urine pH Ur Specific [place] Urine Protein Urine Glucose (UA) Urine Ketones Urine Occult Blood Urine Nitrate Urine Bilirubin Urine Urobilinogen Ur Leukocyte Esterase Urine RBC Urine WBC Ur Squamous Epith Cells Urine Bacteria Hyaline Casts Urine Mucus Ur Culture Indicated? Urine Opiates Screen Ur Opiates Confirm Ur Oxycodone Screen Urine Methadone Screen Ur Methadone Confirm Ur Barbiturates Screen Ur Barbiturate Confirm Ur Phencyclidine Scrn Urine PCP Confirm Ur Amphetamines Screen U Amphetamines Confirm U Benzodiazepines Scrn U Benzodiazepine Confm Urine Cocaine Screen Urine Cocaine Confirm U Cannabinoids Confirm U Marijuana (THC) Screen 05/01/20 05/01/20 18:34 18:33 WBC 11.5 H RBC 5.27 H Hgb 15.4 H Hct 48.7 H POC Hct MCV 92.4 MCH 29.2 MCHC 31.6 RDW 14.0 Plt Count 288 MPV 10.4 Neut % (Auto) 69.2 Lymph % (Auto) 20.2 Hawkins % (Auto) 9.8 Eos % (Auto) 0.1 Baso % (Auto) 0.7 Lymph # (Auto) 2.32 [place] # (Auto) 1.13 H Eos # (Auto) 0.01 Baso # (Auto) 0.08 Absolute Neutrophils 7.94 D-Dimer VBG Lactic Acid POC Sodium Sodium 128 L POC Potassium Potassium 5.6 H POC Chloride Chloride 90 L Carbon Dioxide 5 L* POC Total CO2 Anion Gap 33.0 H POC BUN BUN 14 Creatinine 1.5 H POC Creatinine GFR Calculation 48 Glucose 660 H* POC Glucose Calcium 9.5 POC WB Ioniz Calcium Magnesium 2.2 Total Bilirubin 0.3 AST 15 ALT 15 Alkaline Phosphatase 155 H NT-Pro-B Natriuret Pep 46.5 Total Protein 7.8 Albumin 5.0 Globulin 2.8 Albumin/Globulin Ratio 1.8 Lipase 13 Beta-Hydroxybutyrate 14.95 H Procalcitonin Urine Color Urine Appearance Urine pH Ur Specific [place] Urine Protein Urine Glucose (UA) Urine Ketones Urine Occult Blood Urine Nitrate Urine Bilirubin Urine Urobilinogen Ur Leukocyte Esterase Urine RBC Urine WBC Ur Squamous Epith Cells Urine Bacteria Hyaline Casts Urine Mucus Ur Culture Indicated? Urine Opiates Screen Ur Opiates Confirm Ur Oxycodone Screen Urine Methadone Screen Ur Methadone Confirm Ur Barbiturates Screen Ur Barbiturate Confirm Ur Phencyclidine Scrn Urine PCP Confirm Ur Amphetamines Screen U Amphetamines Confirm U Benzodiazepines Scrn U Benzodiazepine Confm Urine Cocaine Screen Urine Cocaine Confirm U Cannabinoids Confirm U Marijuana (THC) Screen A/P Narrative A/P Narrative: * DKA-initiate management protocol with crystalloid/insulin drip/aggressive electrolyte monitoring and replacement. Admit to ICU * Anion gap metabolic acidosis secondary DKA. * Hyperkalemia secondary to extracellular flux due to acidosis. Initiate aggressive potassium replacement once potassium less than 5.3 due to reversal following DKA treatment will lead to rapid hypokalemia * System inferior response syndrome with leukocytosis secondary to DKA. Unclear source. Pancultures/antibiotic coverage * KAYODE secondary to volume depletion and prerenal state. Monitor renal function. Continue crystalloids * Full code Plan * ICU admission * DKA management protocol * Aggressive electrolyte replacement * Monitor renal function * Antibiotic coverage Critical care time spent on management of DKA in excess of 35 minutes in addition to time spent on history and physical Time Spent With Patient Time: Total time spent is greater than 50% in coordination of care (as documented) at patient's floor/unit and/or counseling patient:
[2020-05-01] MEDS ORDERED: POTASSIUM CHLORIDE 40 MEQ in DEXTROSE 5% IN WATER 500 ML IV PRN (22:38)
[2020-05-01] MEDS ORDERED: MAGNESIUM SULFATE 2 GM/50 ML BAG IV PRN (22:38)
[2020-05-01] MEDS ORDERED: ONDANSETRON 4 MG ODT TABLET SL PRN (22:38)
[2020-05-01] MEDS ORDERED: POLYETHYLENE GLYCOL 3350 17 GM PACKET PO PRN (22:38)
[2020-05-01] MEDS ORDERED: BISACODYL 10 MG SUPP.RECT PR PRN (22:38)
[2020-05-01] MEDS ORDERED: ONDANSETRON 4 MG/2 ML VIAL IV PRN (22:38)
[2020-05-01] MEDS ORDERED: MELATONIN 3 MG TABLET PO PRN (22:38)
[2020-05-01] MEDS ORDERED: ACETAMINOPHEN 325 MG TABLET PO PRN (22:38)
[2020-05-01] MEDS ORDERED: DEXTROSE 5%-1/2NS 1,000 ML IV SCH (22:38)
[2020-05-01] MEDS ORDERED: POTASSIUM CHLORIDE 20 MEQ PACKET PO PRN (22:38)
[2020-05-01] MEDS ORDERED: ACETAMINOPHEN 650 MG/65 ML BAG IV PRN (22:38)
[2020-05-01] MEDS ORDERED: 0.9 % SODIUM CHLORIDE 1,000 ML IV SCH (22:38)
[2020-05-01] MEDS ORDERED: POTASSIUM PHOSPHATE 20 MEQ in DEXTROSE 5% IN WATER 250 ML IV ONE (22:38)
[2020-05-01] MEDS ORDERED: cefTRIAXone 2 GM in DEXTROSE 5% IN WATER 50 ML IV SCH (22:45)
[2020-05-01] MEDS ORDERED: ONDANSETRON 4 MG/2 ML VIAL ONE (22:49)
[2020-05-01] MEDS: 0.9 % SODIUM CHLORIDE 10 ML SYRINGE IV SCH (23:25)
[2020-05-01 23:30] LABS: VBG Base Excess -25 (-2-3); VBG HCO3 4.5 mmol/L; VBG PCO2 18.2 mmHg; VBG PH 7.01 U; VBG PO2 65.3 mmHg; VBG Total CO2 5.1 mmol/L
[2020-05-01] MEDS ORDERED: cefTRIAXone 2 GM VIAL ONE (23:48)
[2020-05-02] MEDS ORDERED: POTASSIUM PHOSPHATE 66 MEQ/15 ML VIAL IV ONE (00:05)
[2020-05-02] MEDS ORDERED: ONDANSETRON 4 MG ODT TABLET ONE (01:14)
[2020-05-02] MEDS ORDERED: MELATONIN 3 MG TABLET PO ONE (02:14)
[2020-05-02 05:47] LABS: ABG Methemoglobin 0.2 % (0.4-1.5); VBG Base Excess -21 (-2-3); VBG Oxygen Saturation 66.9 %; VBG PH 7.12 U; VBG Total CO2 7.7 mmol/L
[2020-05-02] MEDS: 0.9 % SODIUM CHLORIDE 10 ML SYRINGE IV SCH ×3 (06:01→21:54)
--- NOTE | 2020-05-02 06:13 | Cat Scan Report ---
INDICATION: elevated d-dimer, short of br., DKA COMPARISON: Previous chest x-ray 05/01/2020 TECHNIQUE: Axial images obtained through the chest. 50ml Isovue 370 injected intravenously, and scanning was performed during pulmonary arterial phase. Sagittally and coronally reformatted images were obtained. MIP reformatted images. FINDINGS: Examination was initially interpreted by [facility] Lungs:No focal pulmonary parenchymal density. No calcified or noncalcified nodule Mediastinum, vascular:Main pulmonary artery, right pulmonary artery, left pulmonary artery are negative. No intraluminal filling defects. No lobar, segmental, or subsegmental emboli. Thoracic aorta is negative. No aneurysmal dilatation No pathologic mediastinal or hilar adenopathy Heart:No cardiomegaly. No pericardial effusion. There is no reflux of contrast material into the inferior cava or hepatic veins Pleura:No significant pleural effusion. No pleural mass or calcification Axilla, supraclavicular regions, chest wall:No pathologic axillary or supraclavicular adenopathy. Musculoskeletal:Negative thoracic spine. No compression fracture. No lytic lesion. No rib or sternal lesions Upper Abdomen:Negative IMPRESSION: Negative pulmonary CTA. No pulmonary embolism The exam was performed using radiation dose optimization techniques including, but not limited to, automated exposure control, adjustment of the mA and/or kV according to patient size and use of iterative reconstruction technique. Interpreted and Authenticated by: Eric Rich 05/02/20
[2020-05-02 07:50] LABS: ALT/SGPT 11 U/L (<40); AST/SGOT 12 U/L (<32); Albumin/Globulin Ratio 1.3 (1.0-2.3); Alkaline Phosphatase 117 U/L (39-117); Bilirubin,Direct < 0.2 mg/dL (<0.3); Bilirubin,Total 0.2 mg/dL (0.1-1.0); Blood Urea Nitrogen 8 mg/dL (6-20); Calcium 8.5 mg/dL (8.6-10.4); Carbon Dioxide 5 mmol/L (22-30); Chloride 105 mmol/L (96-108); Glomerular Filtration Rate 88; Glucose 149 mg/dL (70-105); Lactate Dehydrogenase 172 U/L (135-225); Phosphorous 2.2 mg/dL (2.5-4.5); Triglycerides 101 mg/dL (<150)
[2020-05-02] MEDS ORDERED: DEXTROSE 5%-1/2NS 1,000 ML IV SCH (07:53)
[2020-05-02 08:10] LABS: Basophils # (Auto) 0.04 K/mcL (0.00-0.20); Basophils % (Auto) 0.3 % (0.0-2.0); Eosinophils # (Auto) 0.01 K/mcL (0.00-0.70); Eosinophils % (Auto) 0.1 % (0.0-7.0); Hematocrit 45.9 % (36.0-48.0); Hemoglobin 14.8 g/dL (12.0-15.0); Lymphocytes # (Auto) 1.84 K/mcL (1.50-4.80); Lymphocytes % (Auto) 14.3 % (15.0-49.0); Mean Cell Volume 90.4 fL (80.0-100.0); Mean Corpuscular HGB Conc 32.2 g/dL (31.0-36.0); Monocytes # (Auto) 1.56 K/mcL (0.10-0.90); Monocytes % (Auto) 12.1 % (1.0-12.0); Neutrophils % (Auto) 73.2 % (38.0-78.0); RBC 5.08 M/mcL (4.00-5.20); Red Cell Distribution Width 14.2 % (11.5-14.5); WBC 12.9 K/mcL (4.5-11.0)
[2020-05-02 08:20] LABS: Beta Hydroxybutyrate 5.98 mmol/L (<0.27)
[2020-05-02] MEDS: INSULIN REGULAR, HUMAN 50 UNIT in 0.9 % SODIUM CHLORIDE 99.5 ML IV SCH ×2 (08:42→20:07)
--- NOTE | 2020-05-02 08:43 | Internal Med Progress Note ---
SUBJECTIVE Subjective Patient information: Note initiated : 05/02/20 at 8:40 am Service Date, if different from initiated Date: [] Patient: Yue Lucas 24 y/o F admitted on 05/01/20 for short of breath. Chief Complaint: [] Interval history: History of present illness: Ms. Lucas is a 24 year old F With a history of insulin-dependent diabeteswho recently was admitted with DKA secondary to insulin pump failure And was discharged on 02/23. Patient has been doing well using basal prandial insulin awaiting her new insulin pump. She has been doing well until the day prior to presentation. While at work patient noted increasing shortness of breath along with weakness and symptoms of increased polyuria and increased thirst. She associated nausea but denies any fever or sick contacts. She denies headache, photophobia joint pain or rash or diarrhea or dysuria. She presents to the ER where initial work-up was consistent with severe DKA with pH 7.1. White count 11.5, potassium 5.6, anion gap 33, creatinine 1.5 and bicarb at 5. Patient was rapidly started on crystalloid/insulin drip and subsequently hospital service was consulted At the time of evaluation patient is very anxious, labored rapid shallow breathing. Appears extremely dehydrated. Endorses to history as above. Does not recollect the exact onset of symptoms roughly between 24 to 36 hours. 05/02-severe DKA currently on insulin drip. Bicarb persistently low at 5. However symptomatic and clinically improving. Anion gap down from 33-21. White count 12.9, potassium 4.5, sodium 131, creatinine down to 0.9 from 1.5. Resting comfortably. On 5 units an hour insulin drip. Continue serial electrolytes/VBG/DKA management per protocol. Remains critically ill Constitutional Vitals: Vital Signs Temp Pulse Resp BP Pulse Ox 98.7 F 101 H 17 111/75 100 05/02/20 08:00 05/02/20 07:02 05/02/20 08:00 05/02/20 08:00 05/02/20 08:00 Period Temp Pulse Resp BP Sys/Brooke Pulse Ox Last 24 Hr 98.0 F-98.7 F 101-125 17-35 104-156/70-101 97-100 Intake and Output 02/13/21 02/14/21 02/14/21 21:59 05:59 13:59 Intake Total 1010 2659 395 Output Total 1100 Balance 1010 1559 395 Weight 80.739 kg 69.127 kg Alert oriented Nonlabored breathing Stable hemodynamics No anxiety Improved tachycardia and tachypnea Intake & Output: Intake & Output 05/01/20 05/02/20 05/02/20 21:59 05:59 13:59 Intake Total 1010 2659 395 Output Total 1100 Balance 1010 1559 395 Weight 80.739 kg 69.127 kg Intake: IV 1010 2019 395 Sodium Chloride 0.9% 1,000 ml @ 1000 2000 Wide Open IV BOLUS ALYSHA Rx#: [id number] Dextrose 5%-1/2Ns IV Solution 1 346 ,000 ml @ 75 mls/hr IV .[id number] ALYSHA Rx#:[id number] HumuLIN R 50 UNIT In Sodium 10 19 49 Chloride 0.9% 99.5 ml @ 4 UNIT/ HR 8 mls/hr IV DUR ALYSHA Rx#: [id number] Oral 640 Output: Void Amount 1100 Other: Urine Appearance Clear Urine Color Pale OBJ DATA Labs CBC & Chem 7: 05/02/20 05:30 05/02/20 05:30 Labs: Abnormal Lab Results 05/02/20 05/02/20 05/02/20 05:31 05:30 05:30 WBC 12.9 H RBC Hgb Hct POC Hct Lymph % (Auto) 14.3 L [place] % (Auto) 12.1 H [place] # (Auto) 1.56 H Absolute Neutrophils 9.40 H D-Dimer ABG Methemoglobin 0.2 L VBG Base Excess -21 L VBG Lactic Acid Carboxyhemoglobin 3.8 H Sodium 131 L POC Potassium Potassium POC Chloride Chloride Carbon Dioxide 5 L* POC Total CO2 Anion Gap 21.0 H Creatinine Glucose 149 H POC Glucose Calcium 8.5 L POC WB Ioniz Calcium Phosphorus 2.2 L Alkaline Phosphatase Beta-Hydroxybutyrate 5.98 H Procalcitonin Urine Glucose (UA) Urine Ketones Ur Squamous Epith Cells Hyaline Casts Urine Mucus 05/01/20 05/01/20 05/01/20 23:11 20:53 19:16 WBC RBC Hgb Hct POC Hct 50 H Lymph % (Auto) [place] % (Auto) [place] # (Auto) Absolute Neutrophils D-Dimer ABG Methemoglobin VBG Base Excess -25 L VBG Lactic Acid Carboxyhemoglobin Sodium POC Potassium 5.3 H Potassium POC Chloride 111 H Chloride Carbon Dioxide POC Total CO2 8 L* Anion Gap Creatinine Glucose POC Glucose 352 H Calcium POC WB Ioniz Calcium 1.15 L Phosphorus Alkaline Phosphatase Beta-Hydroxybutyrate Procalcitonin Urine Glucose (UA) >=500 A Urine Ketones 80 A Ur Squamous Epith Cells 6 H Hyaline Casts 3 H Urine Mucus Few A 05/01/20 05/01/20 05/01/20 18:35 18:34 18:34 WBC RBC Hgb Hct POC Hct Lymph % (Auto) [place] % (Auto) [place] # (Auto) Absolute Neutrophils D-Dimer 1.27 H ABG Methemoglobin VBG Base Excess VBG Lactic Acid 3.5 H Carboxyhemoglobin Sodium POC Potassium Potassium POC Chloride Chloride Carbon Dioxide POC Total CO2 Anion Gap Creatinine Glucose POC Glucose Calcium POC WB Ioniz Calcium Phosphorus Alkaline Phosphatase Beta-Hydroxybutyrate Procalcitonin 0.30 H Urine Glucose (UA) Urine Ketones Ur Squamous Epith Cells Hyaline Casts Urine Mucus 05/01/20 05/01/20 18:34 18:33 WBC 11.5 H RBC 5.27 H Hgb 15.4 H Hct 48.7 H POC Hct Lymph % (Auto) [place] % (Auto) [place] # (Auto) 1.13 H Absolute Neutrophils D-Dimer ABG Methemoglobin VBG Base Excess VBG Lactic Acid Carboxyhemoglobin Sodium 128 L POC Potassium Potassium 5.6 H POC Chloride Chloride 90 L Carbon Dioxide 5 L* POC Total CO2 Anion Gap 33.0 H Creatinine 1.5 H Glucose 660 H* POC Glucose Calcium POC WB Ioniz Calcium Phosphorus Alkaline Phosphatase 155 H Beta-Hydroxybutyrate 14.95 H Procalcitonin Urine Glucose (UA) Urine Ketones Ur Squamous Epith Cells Hyaline Casts Urine Mucus Meds: Medications Acetaminophen (Tylenol) 650 mg PO Q4-6HP PRN; Protocol PRN Reason: Per Pain Protocol/Fever > 101 Bisacodyl (Dulcolax) 10 mg VT Q2-3DAYS PRN PRN Reason: Constipation Diagnostic Test (Pha) (Accu-Chek) 1 each FS Q1 ALYSHA Last Admin: 05/02/20 07:49 Dose: 1 each Documented by: Docusate Sodium (Colace) 100 mg PO BID [facility] Heparin Sodium (Porcine) (Heparin) 5,000 unit SQ Q12 [facility] Insulin Human Regular 50 unit/ (Sodium Chloride) 100 mls @ 8 mls/hr IV Q12H SC [facility]; Protocol Potassium Chloride 40 meq/ (Dextrose) 520 mls @ 130 mls/hr IV UD PRN PRN Reason: K+ = or < 3.5 Acetaminophen (Ofirmev) 650 mg in 65 mls @ 130 mls/hr IV Q6HP PRN; Protocol PRN Reason: Per Pain Protocol/Fever > 101 Magnesium Sulfate (Magnesium Sulfate) 2 gm in 50 mls @ 50 mls/hr IV UD PRN PRN Reason: MG = or < 1.7 Sodium Chloride (Sodium Chloride 0.9%) 1,000 mls @ 0 mls/hr IV BOLUS [facility] Last Infusion: 05/02/20 01:03 Dose: Infused Documented by: Ceftriaxone Sodium 2 gm/ (Dextrose) 50 mls @ 100 mls/hr IV Q24H [facility]; Protocol Last Admin: 05/02/20 00:04 Dose: Not Given Documented by: Dextrose/Sodium Chloride (Dextrose 5%-1/2ns Iv Solution) 1,000 mls @ 150 mls/hr IV .Q6H40M [facility] Iron Carb/Multivit/Accessories Repairer/Folic Acid (Multivitamin W/Minerals) 1 tab PO DAILY [facility] Melatonin (Melatonin 3mg Tablet) 3 mg PO HSP PRN PRN Reason: Insomnia Ondansetron HCl (Zofran Odt) 4 mg SL Q4-6HP PRN; Protocol PRN Reason: Nausea And Vomiting Last Admin: 05/02/20 01:07 Dose: 4 mg Documented by: Ondansetron HCl (Zofran) 4 mg IV Q4-6HP PRN; Protocol PRN Reason: Nausea And Vomiting Polyethylene Glycol (Miralax) 17 gm PO DAILYP PRN PRN Reason: Constipation Potassium Chloride (Klor-Con) 40 meq PO DAILYP PRN PRN Reason: K+ < 3.5 Senna/Docusate Sodium (Senna Plus Tablet) 1 tab PO HS [facility] Sodium Chloride (Saline Flush) 10 ml IV Q8 [facility] Last Admin: 05/02/20 06:01 Dose: 10 ml Documented by: ABG Interpretation ABG results: 05/01/20 05/02/20 23:11 05:31 ABG Methemoglobin TNP 0.2 L VBG pH 7.01 7.12 VBG pCO2 18.2 22.0 VBG pO2 65.3 42.0 VBG HCO3 4.5 7.0 VBG Total CO2 5.1 7.7 VBG O2 Saturation TNP 66.9 VBG Base Excess -25 L -21 L A/P Narrative A/P Narrative: * DKA-gradual clinical improvement noted however bicarb remains low at 5 with anion gap improved from 33-21. Continue insulin drip/crystalloids and management per guidelines. * Multiple electrolyte maladies continue replacement as indicated per DKA protocol * Acute kidney injury secondary to prerenal state.. Creatinine improved from 1.5-0.9 * SIRS secondary to DKA. No clear source of infection 95. DC antibiotics in 24 hours if no evidence of infection * Full code Plan * Continue DKA management protocol * Aggressive electrolyte replacement * DC antibiotics in 24 hours if no evidence of infection * Keep n.p.o. Critical care time spent on management of DKA in excess of 35 minutes on management of DKA Time Spent With Patient Time: Total time spent is greater than 50% in coordination of care (as documented) at patient's floor/unit and/or counseling patient:
[2020-05-02] MEDS ORDERED: POTASSIUM PHOSPHATE 20 MEQ in DEXTROSE 5% IN WATER 250 ML IV ONE (08:55)
[2020-05-02] MEDS ORDERED: DOCUSATE SODIUM 100 MG CAPSULE PO SCH (09:00)
[2020-05-02] MEDS ORDERED: HEPARIN 5,000 UNIT/ML VIAL SQ SCH (09:00)
[2020-05-02] MEDS: DEXTROSE 5%-1/2NS 1,000 ML IV SCH ×4 (10:04→20:25)
[2020-05-02] MEDS: MULTIVIT,THER IRON,CA,FA & MIN 1 TABLET PO SCH (10:44)
[2020-05-02 12:33] LABS: ABG Methemoglobin 0.3 % (0.4-1.5); Total Hemoglobin 12.4 gm/Dl (13.5-16.5); VBG Base Excess -13 (-2-3); VBG Oxygen Saturation 95.5 %; VBG PH 7.32 U; VBG PO2 134.5 mmHg; VBG Total CO2 11.7 mmol/L
[2020-05-02 13:03] LABS: ALT/SGPT 9 U/L (<40); AST/SGOT 10 U/L (<32); Albumin 3.8 gm/dL (3.2-5.2); Albumin/Globulin Ratio 1.5 (1.0-2.3); Alkaline Phosphatase 105 U/L (39-117); Bilirubin,Direct < 0.2 mg/dL (<0.3); Bilirubin,Total 0.4 mg/dL (0.1-1.0); Blood Urea Nitrogen 7 mg/dL (6-20); Calcium 8.2 mg/dL (8.6-10.4); Carbon Dioxide 11 mmol/L (22-30); Chloride 104 mmol/L (96-108); Globulin 2.5 gm/dL (2.2-3.7); Glomerular Filtration Rate 88; Glucose 227 mg/dL (70-105); Lactate Dehydrogenase 119 U/L (135-225); Phosphorous 3.2 mg/dL (2.5-4.5); Triglycerides 82 mg/dL (<150); Uric Acid 6.2 mg/dL (2.5-8.0)
--- NOTE | 2020-05-02 13:37 | Internal Med Progress Note ---
SUBJECTIVE Subjective Patient information: Note initiated : 05/02/20 at 1:28 pm Service Date, if different from initiated Date: [] Patient: Yue Lucas a 24 y/o F admitted on 05/01/20 for short of breath. Chief Complaint: [] Interval history: History of present illness: Ms. Lucas is a 24 year old F With a history of insulin-dependent diabeteswho recently was admitted with DKA secondary to insulin pump failure And was discharged on 02/23. Patient has been doing well using basal prandial insulin awaiting her new insulin pump. She has been doing well until the day prior to presentation. While at work patient noted increasing shortness of breath along with weakness and symptoms of increased polyuria and increased thirst. She associated nausea but denies any fever or sick contacts. She denies headache, photophobia joint pain or rash or diarrhea or dysuria. She presents to the ER where initial work-up was consistent with severe DKA with pH 7.1. White count 11.5, potassium 5.6, anion gap 33, creatinine 1.5 and bicarb at 5. Patient was rapidly started on crystalloid/insulin drip and subsequently hospital service was consulted At the time of evaluation patient is very anxious, labored rapid shallow breathing. Appears extremely dehydrated. Endorses to history as above. Does not recollect the exact onset of symptoms roughly between 24 to 36 hours. 05/02-severe DKA currently on insulin drip. Bicarb persistently low at 5. However symptomatic and clinically improving. Anion gap down from 33-21. White count 12.9, potassium 4.5, sodium 131, creatinine down to 0.9 from 1.5. Resting comfortably. On 5 units an hour insulin drip. Continue serial electrolytes/VBG/DKA management per protocol. Remains critically ill Constitutional Vitals: Vital Signs Temp Pulse Resp BP Pulse Ox 98.7 F 89 16 98/67 100 05/02/20 08:00 05/02/20 13:00 05/02/20 13:00 05/02/20 13:00 05/02/20 13:00 Period Temp Pulse Resp BP Sys/Brooke Pulse Ox Last 24 Hr 98.0 F-98.7 F 89-125 15-35 98-156/67-101 97-100 Intake and Output 05/01/20 05/02/20 05/02/20 21:59 05:59 13:59 Intake Total 1010 2659 900 Output Total 1100 850 Balance 1010 1559 50 Weight 80.739 kg 69.127 kg Intake & Output: Intake & Output 05/01/20 05/02/20 05/02/20 21:59 05:59 13:59 Intake Total 1010 2659 900 Output Total 1100 850 Balance 1010 1559 50 Weight 80.739 kg 69.127 kg Intake: IV 1010 2019 600 Sodium Chloride 0.9% 1,000 ml @ 1000 2000 Wide Open IV BOLUS [facility] Rx#: [id number] Dextrose 5%-1/2Ns IV Solution 1 508 ,000 ml @ 75 mls/hr IV .[id number] [facility] Rx#:[id number] HumuLIN R 50 UNIT In Sodium 10 19 92 Chloride 0.9% 99.5 ml @ 4 UNIT/ HR 8 mls/hr IV Q12H [facility] Rx#: [id number] Oral 640 300 Output: Void Amount 1100 850 Other: Urine Appearance Clear Clear Urine Color Pale Pale Exam: General: Alert, Awake, No acute Distress Eyes/N/T: EOMI, Head/Neck: neck supple, CV: RRR, No murmurs, Pulm: Clear b/l, no wheezing/rhonchi/rales Abd: soft, nontender, +BS x4 Ext: no clubbing/cyanosis/edema Neuro: Alert, no focal deficits, moves all extremities, Skin: warm/dry OBJ DATA Labs CBC & Chem 7: 05/02/20 05:30 05/02/20 12:03 Labs: Abnormal Lab Results 05/02/20 05/02/20 05/02/20 12:03 12:03 05:31 WBC RBC Hgb Hct POC Hct Lymph % (Auto) [place] % (Auto) [place] # (Auto) Absolute Neutrophils D-Dimer ABG Methemoglobin 0.3 L 0.2 L VBG Base Excess -13 L -21 L VBG Lactic Acid Carboxyhemoglobin 3.4 H 3.8 H Total Hemoglobin 12.4 L Sodium 129 L POC Potassium Potassium POC Chloride Chloride Carbon Dioxide 11 L POC Total CO2 Anion Gap Creatinine Glucose 227 H POC Glucose Calcium 8.2 L POC WB Ioniz Calcium Phosphorus Alkaline Phosphatase Lactate Dehydrogenase 119 L Beta-Hydroxybutyrate Procalcitonin Urine Glucose (UA) Urine Ketones Ur Squamous Epith Cells Hyaline Casts Urine Mucus 05/02/20 05/02/20 05/01/20 05:30 05:30 23:11 WBC 12.9 H RBC Hgb Hct POC Hct Lymph % (Auto) 14.3 L [place] % (Auto) 12.1 H [place] # (Auto) 1.56 H Absolute Neutrophils 9.40 H D-Dimer ABG Methemoglobin VBG Base Excess -25 L VBG Lactic Acid Carboxyhemoglobin Total Hemoglobin Sodium 131 L POC Potassium Potassium POC Chloride Chloride Carbon Dioxide 5 L* POC Total CO2 Anion Gap 21.0 H Creatinine Glucose 149 H POC Glucose Calcium 8.5 L POC WB Ioniz Calcium Phosphorus 2.2 L Alkaline Phosphatase Lactate Dehydrogenase Beta-Hydroxybutyrate 5.98 H Procalcitonin Urine Glucose (UA) Urine Ketones Ur Squamous Epith Cells Hyaline Casts Urine Mucus 05/01/20 05/01/20 05/01/20 20:53 19:16 18:35 WBC RBC Hgb Hct POC Hct 50 H Lymph % (Auto) [place] % (Auto) [place] # (Auto) Absolute Neutrophils D-Dimer ABG Methemoglobin VBG Base Excess VBG Lactic Acid Carboxyhemoglobin Total Hemoglobin Sodium POC Potassium 5.3 H Potassium POC Chloride 111 H Chloride Carbon Dioxide POC Total CO2 8 L* Anion Gap Creatinine Glucose POC Glucose 352 H Calcium POC WB Ioniz Calcium 1.15 L Phosphorus Alkaline Phosphatase Lactate Dehydrogenase Beta-Hydroxybutyrate Procalcitonin 0.30 H Urine Glucose (UA) >=500 A Urine Ketones 80 A Ur Squamous Epith Cells 6 H Hyaline Casts 3 H Urine Mucus Few A 05/01/20 05/01/20 05/01/20 18:34 18:34 18:34 WBC 11.5 H RBC 5.27 H Hgb 15.4 H Hct 48.7 H POC Hct Lymph % (Auto) [place] % (Auto) [place] # (Auto) 1.13 H Absolute Neutrophils D-Dimer 1.27 H ABG Methemoglobin VBG Base Excess VBG Lactic Acid 3.5 H Carboxyhemoglobin Total Hemoglobin Sodium POC Potassium Potassium POC Chloride Chloride Carbon Dioxide POC Total CO2 Anion Gap Creatinine Glucose POC Glucose Calcium POC WB Ioniz Calcium Phosphorus Alkaline Phosphatase Lactate Dehydrogenase Beta-Hydroxybutyrate Procalcitonin Urine Glucose (UA) Urine Ketones Ur Squamous Epith Cells Hyaline Casts Urine Mucus 05/01/20 18:33 WBC RBC Hgb Hct POC Hct Lymph % (Auto) [place] % (Auto) [place] # (Auto) Absolute Neutrophils D-Dimer ABG Methemoglobin VBG Base Excess VBG Lactic Acid Carboxyhemoglobin Total Hemoglobin Sodium 128 L POC Potassium Potassium 5.6 H POC Chloride Chloride 90 L Carbon Dioxide 5 L* POC Total CO2 Anion Gap 33.0 H Creatinine 1.5 H Glucose 660 H* POC Glucose Calcium POC WB Ioniz Calcium Phosphorus Alkaline Phosphatase 155 H Lactate Dehydrogenase Beta-Hydroxybutyrate 14.95 H Procalcitonin Urine Glucose (UA) Urine Ketones Ur Squamous Epith Cells Hyaline Casts Urine Mucus Meds: Medications Acetaminophen (Tylenol) 650 mg PO Q4-6HP PRN; Protocol PRN Reason: Per Pain Protocol/Fever > 101 Bisacodyl (Dulcolax) 10 mg [place] Q2-3DAYS PRN PRN Reason: Constipation Diagnostic Test (Pha) (Accu-Chek) 1 each FS Q1 [facility] Last Admin: 05/02/20 13:05 Dose: 1 each Documented by: Docusate Sodium (Colace) 100 mg PO BID [facility] Last Admin: 05/02/20 11:11 Dose: Not Given Documented by: Heparin Sodium (Porcine) (Heparin) 5,000 unit SQ Q12 [facility] Last Admin: 05/02/20 09:48 Dose: 5,000 unit Documented by: Insulin Human Regular 50 unit/ (Sodium Chloride) 100 mls @ 8 mls/hr IV Q12H [facility]; Protocol Last Titration: 05/02/20 12:10 Dose: 3.5 unit/hr, 7 mls/hr Documented by: Potassium Chloride 40 meq/ (Dextrose) 520 mls @ 130 mls/hr IV UD PRN PRN Reason: K+ = or < 3.5 Acetaminophen (Ofirmev) 650 mg in 65 mls @ 130 mls/hr IV Q6HP PRN; Protocol PRN Reason: Per Pain Protocol/Fever > 101 Magnesium Sulfate (Magnesium Sulfate) 2 gm in 50 mls @ 50 mls/hr IV UD PRN PRN Reason: MG = or < 1.7 Sodium Chloride (Sodium Chloride 0.9%) 1,000 mls @ 0 mls/hr IV BOLUS [facility] Last Infusion: 05/02/20 01:03 Dose: Infused Documented by: Dextrose/Sodium Chloride (Dextrose 5%-1/2ns Iv Solution) 1,000 mls @ 200 mls/hr IV .Q5H [facility] Last Admin: 05/02/20 12:09 Dose: 200 mls/hr Documented by: Ceftriaxone Sodium 2 gm/ (Dextrose) 50 mls @ 100 mls/hr IV Q24H [facility]; Protocol Iron Carb/Multivit/[place]/Folic Acid (Multivitamin W/Minerals) 1 tab PO DAILY [facility] Last Admin: 05/02/20 10:44 Dose: 1 tab Documented by: Melatonin (Melatonin 3mg Tablet) 3 mg PO HSP PRN PRN Reason: Insomnia Ondansetron HCl (Zofran Odt) 4 mg SL Q4-6HP PRN; Protocol PRN Reason: Nausea And Vomiting Last Admin: 05/02/20 01:07 Dose: 4 mg Documented by: Ondansetron HCl (Zofran) 4 mg IV Q4-6HP PRN; Protocol PRN Reason: Nausea And Vomiting Polyethylene Glycol (Miralax) 17 gm PO DAILYP PRN PRN Reason: Constipation Potassium Chloride (Klor-Con) 40 meq PO DAILYP PRN PRN Reason: K+ < 3.5 Senna/Docusate Sodium (Senna Plus Tablet) 1 tab PO HS [facility] Sodium Chloride (Saline Flush) 10 ml IV Q8 [facility] Last Admin: 05/02/20 06:01 Dose: 10 ml Documented by: ABG Interpretation ABG results: 05/01/20 05/02/20 05/02/20 23:11 05:31 12:03 ABG Methemoglobin TNP 0.2 L 0.3 L VBG pH 7.01 7.12 7.32 VBG pCO2 18.2 22.0 22.0 VBG pO2 65.3 42.0 134.5 VBG HCO3 4.5 7.0 11.0 VBG Total CO2 5.1 7.7 11.7 VBG O2 Saturation TNP 66.9 95.5 VBG Base Excess -25 L -21 L -13 L A/P Narrative A/P Narrative: A: *DKA: -gradual clinical improvement *AG Met acidosis: 2/2 above *Multiple electrolyte maladies: 2/2 above *KAYODE: 2/2 prerenal state -resolved *SIRS: 2/2 DKA -No clear source of infection Plan: -Continue insulin drip/crystalloids and management per guidelines -Continue DKA management protocol -Aggressive electrolyte replacement -DC antibiotics in 24 hours if no evidence of infection -start clear diet in AM -ppx: lovenox Full code Critical care time spent on management of DKA in excess of 35 minutes on management of DKA Time Spent With Patient Time: Total time spent is greater than 50% in coordination of care (as documented) at patient's floor/unit and/or counseling patient:
[2020-05-02] MEDS: cefTRIAXone 2 GM in DEXTROSE 5% IN WATER 50 ML IV SCH (15:11)
[2020-05-02 19:08] LABS: Blood Urea Nitrogen 6 mg/dL (6-20); Calcium 8.5 mg/dL (8.6-10.4); Carbon Dioxide 12 mmol/L (22-30); Chloride 106 mmol/L (96-108); Glomerular Filtration Rate 102; Glucose 165 mg/dL (70-105)
[2020-05-02] MEDS ORDERED: DEXTROSE 50% 50 ML VIAL IV PRN (19:10)
[2020-05-02] MEDS ORDERED: DEXTROSE 31 GM ORAL.SUSP PO PRN (19:10)
[2020-05-02] MEDS ORDERED: 0.9 % SODIUM CHLORIDE 1,000 ML IV SCH (19:15)
[2020-05-02] MEDS: INSULIN LISPRO 1 UNIT/0.01 ML UNIT SQ SCH (19:26)
[2020-05-02] MEDS ORDERED: SENNOSIDES/DOCUSATE SODIUM 1 TAB TABLET PO SCH (21:00)
[2020-05-02] MEDS ORDERED: INSULIN GLARGINE, HUMAN 1 UNIT/0.01 ML SQ ONE ×2 (21:18→21:48)
[2020-05-02] MEDS: INSULIN DEGLUDEC 35 UNIT SUB-Q SCH (21:29)
[2020-05-03] MEDS: INSULIN LISPRO 1 UNIT/0.01 ML UNIT SQ SCH ×7 (00:10→23:40)
[2020-05-03] MEDS: 0.9 % SODIUM CHLORIDE 10 ML SYRINGE IV SCH ×3 (05:26→20:08)
[2020-05-03 06:36] LABS: Basophils # (Auto) 0.04 K/mcL (0.00-0.20); Basophils % (Auto) 0.7 % (0.0-2.0); Eosinophils # (Auto) 0.09 K/mcL (0.00-0.70); Eosinophils % (Auto) 1.6 % (0.0-7.0); Hematocrit 35.9 % (36.0-48.0); Hemoglobin 11.8 g/dL (12.0-15.0); Lymphocytes # (Auto) 2.01 K/mcL (1.50-4.80); Lymphocytes % (Auto) 35.4 % (15.0-49.0); Mean Cell Volume 89.3 fL (80.0-100.0); Mean Corpuscular HGB Conc 32.9 g/dL (31.0-36.0); Mean Platelet Volume 10.2 fL (7.4-10.4); Monocytes # (Auto) 0.73 K/mcL (0.10-0.90); Monocytes % (Auto) 12.9 % (1.0-12.0); Neutrophils % (Auto) 49.4 % (38.0-78.0); Platelet Count 196 K/mcL (140-440); RBC 4.02 M/mcL (4.00-5.20); Red Cell Distribution Width 14.6 % (11.5-14.5); WBC 5.7 K/mcL (4.5-11.0)
[2020-05-03 07:07] LABS: ALT/SGPT 8 U/L (<40); AST/SGOT 8 U/L (<32); Albumin 3.3 gm/dL (3.2-5.2); Albumin/Globulin Ratio 1.4 (1.0-2.3); Alkaline Phosphatase 99 U/L (39-117); Bilirubin,Direct < 0.2 mg/dL (<0.3); Bilirubin,Total 0.4 mg/dL (0.1-1.0); Blood Urea Nitrogen 5 mg/dL (6-20); Calcium 8.5 mg/dL (8.6-10.4); Carbon Dioxide 13 mmol/L (22-30); Chloride 111 mmol/L (96-108); Globulin 2.3 gm/dL (2.2-3.7); Glomerular Filtration Rate 120; Glucose 225 mg/dL (70-105); Lactate Dehydrogenase 106 U/L (135-225); Phosphorous 1.6 mg/dL (2.5-4.5); Triglycerides 125 mg/dL (<150); Uric Acid 4.1 mg/dL (2.5-8.0)
--- NOTE | 2020-05-03 07:23 | Internal Med Progress Note ---
SUBJECTIVE Subjective Patient information: Note initiated : 05/03/20 at 7:19 am Service Date, if different from initiated Date: [] Patient: Yue Lucas a 24 y/o F admitted on 05/01/20 for short of breath. Chief Complaint: [] Interval history: History of present illness: Ms. Lucas is a 24 year old F With a history of insulin-dependent diabeteswho recently was admitted with DKA secondary to insulin pump failure And was discharged on 02/23. Patient has been doing well using basal prandial insulin awaiting her new insulin pump. She has been doing well until the day prior to presentation. While at work patient noted increasing shortness of breath along with weakness and symptoms of increased polyuria and increased thirst. She associated nausea but denies any fever or sick contacts. She denies headache, photophobia joint pain or rash or diarrhea or dysuria. She presents to the ER where initial work-up was consistent with severe DKA with pH 7.1. White count 11.5, potassium 5.6, anion gap 33, creatinine 1.5 and bicarb at 5. Patient was rapidly started on crystalloid/insulin drip and subsequently hospital service was consulted At the time of evaluation patient is very anxious, labored rapid shallow breathing. Appears extremely dehydrated. Endorses to history as above. Does not recollect the exact onset of symptoms roughly between 24 to 36 hours. 05/02-severe DKA currently on insulin drip. Bicarb persistently low at 5. However symptomatic and clinically improving. Anion gap down from 33-21. White count 12.9, potassium 4.5, sodium 131, creatinine down to 0.9 from 1.5. Resting comfortably. On 5 units an hour insulin drip. Continue serial electrolytes/VBG/DKA management per protocol. Remains critically ill. 05/03 Switched to subcutaneous long-acting insulin last night. Sugars well controlled. Patient feeling much better. Review of Systems: denies headache/fever/chills/nausea/vomiting/chest or abdominal pain/cough/dyspnea/diarrhea. Otherwise see above. Constitutional Vitals: Vital Signs Temp Pulse Resp BP Pulse Ox 98.2 F 99 H 20 114/64 100 05/03/20 00:16 05/03/20 05:01 05/02/20 17:00 05/03/20 05:01 05/03/20 05:01 Period Temp Pulse Resp BP Sys/Brooke Pulse Ox Last 24 Hr 98.2 F-99.5 F 77-100 15-20 93-128/56-102 97-100 Intake and Output 05/02/20 05/03/20 05/03/20 21:59 05:59 13:59 Intake Total 2175 440 Output Total 500 1500 Balance 1675 -1060 Weight 69.581 kg Intake & Output: Intake & Output 05/02/20 05/03/20 05/03/20 21:59 05:59 13:59 Intake Total 2175 440 Output Total 500 1500 Balance 1675 -1060 Weight 69.581 kg Intake: IV 1935 Dextrose 5%-1/2Ns IV Solution 1 1830 ,000 ml @ 200 mls/hr IV .Q5H [facility] Rx#:[id number] HumuLIN R 50 UNIT In Sodium 55 Chloride 0.9% 99.5 ml @ 4 UNIT/ HR 8 mls/hr IV Q12H [facility] Rx#: [id number] Rocephin 2 gm In Dextrose 5% in 50 Water 50 ml @ 100 mls/hr IV Q24H [facility] Rx#:[id number] Oral 240 440 Output: Void Amount 500 1500 Other: Urine Appearance Clear Clear Urine Color Bright Yellow Pale Urine Odor Sweet Exam: General: Alert, Awake, No acute Distress Eyes/N/T: EOMI, Head/Neck: neck supple, CV: RRR, No murmurs, Pulm: Clear b/l, no wheezing/rhonchi/rales Abd: soft, nontender, +BS x4 Ext: no clubbing/cyanosis/edema Neuro: Alert, no focal deficits, moves all extremities, Skin: warm/dry OBJ DATA Labs CBC & Chem 7: 05/03/20 04:56 05/03/20 04:55 Labs: Abnormal Lab Results 05/03/20 05/03/20 05/03/20 04:57 04:56 04:56 WBC RBC Hgb 11.8 L Hct 35.9 L POC Hct RDW 14.6 H Lymph % (Auto) [place] % (Auto) 12.9 H [place] # (Auto) Absolute Neutrophils D-Dimer ABG Methemoglobin VBG Base Excess VBG Lactic Acid Carboxyhemoglobin Total Hemoglobin Sodium POC Potassium Potassium POC Chloride Chloride Carbon Dioxide POC Total CO2 Anion Gap BUN Creatinine Glucose POC Glucose Calcium POC WB Ioniz Calcium Phosphorus Alkaline Phosphatase Lactate Dehydrogenase Total Protein Beta-Hydroxybutyrate 1.65 H Procalcitonin 0.28 H Urine Glucose (UA) Urine Ketones Ur Squamous Epith Cells Hyaline Casts Urine Mucus 05/03/20 05/02/20 05/02/20 04:55 17:17 12:03 WBC RBC Hgb Hct POC Hct RDW Lymph % (Auto) [place] % (Auto) [place] # (Auto) Absolute Neutrophils D-Dimer ABG Methemoglobin 0.3 L VBG Base Excess -13 L VBG Lactic Acid Carboxyhemoglobin 3.4 H Total Hemoglobin 12.4 L Sodium 131 L POC Potassium Potassium 3.2 L POC Chloride Chloride 111 H Carbon Dioxide 13 L 12 L POC Total CO2 Anion Gap BUN 5 L Creatinine Glucose 225 H 165 H POC Glucose Calcium 8.5 L 8.5 L POC WB Ioniz Calcium Phosphorus 1.6 L Alkaline Phosphatase Lactate Dehydrogenase 106 L Total Protein 5.6 L Beta-Hydroxybutyrate Procalcitonin Urine Glucose (UA) Urine Ketones Ur Squamous Epith Cells Hyaline Casts Urine Mucus 05/02/20 05/02/20 05/02/20 12:03 05:31 05:30 WBC RBC Hgb Hct POC Hct RDW Lymph % (Auto) [place] % (Auto) [place] # (Auto) Absolute Neutrophils D-Dimer ABG Methemoglobin 0.2 L VBG Base Excess -21 L VBG Lactic Acid Carboxyhemoglobin 3.8 H Total Hemoglobin Sodium 129 L 131 L POC Potassium Potassium POC Chloride Chloride Carbon Dioxide 11 L 5 L* POC Total CO2 Anion Gap 21.0 H BUN Creatinine Glucose 227 H 149 H POC Glucose Calcium 8.2 L 8.5 L POC WB Ioniz Calcium Phosphorus 2.2 L Alkaline Phosphatase Lactate Dehydrogenase 119 L Total Protein Beta-Hydroxybutyrate 5.98 H Procalcitonin Urine Glucose (UA) Urine Ketones Ur Squamous Epith Cells Hyaline Casts Urine Mucus 05/02/20 05/01/20 05/01/20 05:30 23:11 20:53 WBC 12.9 H RBC Hgb Hct POC Hct 50 H RDW Lymph % (Auto) 14.3 L [place] % (Auto) 12.1 H [place] # (Auto) 1.56 H Absolute Neutrophils 9.40 H D-Dimer ABG Methemoglobin VBG Base Excess -25 L VBG Lactic Acid Carboxyhemoglobin Total Hemoglobin Sodium POC Potassium 5.3 H Potassium POC Chloride 111 H Chloride Carbon Dioxide POC Total CO2 8 L* Anion Gap BUN Creatinine Glucose POC Glucose 352 H Calcium POC WB Ioniz Calcium 1.15 L Phosphorus Alkaline Phosphatase Lactate Dehydrogenase Total Protein Beta-Hydroxybutyrate Procalcitonin Urine Glucose (UA) Urine Ketones Ur Squamous Epith Cells Hyaline Casts Urine Mucus 05/01/20 05/01/20 05/01/20 19:16 18:35 18:34 WBC RBC Hgb Hct POC Hct RDW Lymph % (Auto) [place] % (Auto) [place] # (Auto) Absolute Neutrophils D-Dimer ABG Methemoglobin VBG Base Excess VBG Lactic Acid 3.5 H Carboxyhemoglobin Total Hemoglobin Sodium POC Potassium Potassium POC Chloride Chloride Carbon Dioxide POC Total CO2 Anion Gap BUN Creatinine Glucose POC Glucose Calcium POC WB Ioniz Calcium Phosphorus Alkaline Phosphatase Lactate Dehydrogenase Total Protein Beta-Hydroxybutyrate Procalcitonin 0.30 H Urine Glucose (UA) >=500 A Urine Ketones 80 A Ur Squamous Epith Cells 6 H Hyaline Casts 3 H Urine Mucus Few A 05/01/20 05/01/20 05/01/20 18:34 18:34 18:33 WBC 11.5 H RBC 5.27 H Hgb 15.4 H Hct 48.7 H POC Hct RDW Lymph % (Auto) [place] % (Auto) [place] # (Auto) 1.13 H Absolute Neutrophils D-Dimer 1.27 H ABG Methemoglobin VBG Base Excess VBG Lactic Acid Carboxyhemoglobin Total Hemoglobin Sodium 128 L POC Potassium Potassium 5.6 H POC Chloride Chloride 90 L Carbon Dioxide 5 L* POC Total CO2 Anion Gap 33.0 H BUN Creatinine 1.5 H Glucose 660 H* POC Glucose Calcium POC WB Ioniz Calcium Phosphorus Alkaline Phosphatase 155 H Lactate Dehydrogenase Total Protein Beta-Hydroxybutyrate 14.95 H Procalcitonin Urine Glucose (UA) Urine Ketones Ur Squamous Epith Cells Hyaline Casts Urine Mucus Meds: Medications Acetaminophen (Tylenol) 650 mg PO Q4-6HP PRN; Protocol PRN Reason: Per Pain Protocol/Fever > 101 Bisacodyl (Dulcolax) 10 mg [place] Q2-3DAYS PRN PRN Reason: Constipation Dextrose (Dextrose 50%) 0 ml IV UD PRN PRN Reason: Hypoglycemia Diagnostic Test (Pha) (Accu-Chek) 1 each FS Q4H [facility] Last Admin: 05/03/20 03:48 Dose: 1 each Documented by: Enoxaparin Sodium (Lovenox) 40 mg SQ DAILY [facility] Glucose (Insta-Glucose) 15 gm PO PRN PRN PRN Reason: Hypoglycemia Insulin Human Regular 50 unit/ (Sodium Chloride) 100 mls @ 8 mls/hr IV Q12H [facility]; Protocol Last Titration: 05/02/20 21:51 Dose: 0 unit/hr, 0 mls/hr Documented by: Potassium Chloride 40 meq/ (Dextrose) 520 mls @ 130 mls/hr IV UD PRN PRN Reason: K+ = or < 3.5 Acetaminophen (Ofirmev) 650 mg in 65 mls @ 130 mls/hr IV Q6HP PRN; Protocol PRN Reason: Per Pain Protocol/Fever > 101 Magnesium Sulfate (Magnesium Sulfate) 2 gm in 50 mls @ 50 mls/hr IV UD PRN PRN Reason: MG = or < 1.7 Ceftriaxone Sodium 2 gm/ (Dextrose) 50 mls @ 100 mls/hr IV Q24H [facility]; Protocol Last Infusion: 05/02/20 15:45 Dose: Infused Documented by: Insulin Human Lispro (Humalog) 0 unit SQ Q4H [facility]; Protocol Last Admin: 05/03/20 03:48 Dose: Not Given Documented by: Iron Carb/Multivit/[place]/Folic Acid (Multivitamin W/Minerals) 1 tab PO DAILY [facility] Last Admin: 05/02/20 10:44 Dose: 1 tab Documented by: Melatonin (Melatonin 3mg Tablet) 3 mg PO HSP PRN PRN Reason: Insomnia Non-Formulary Medication (Insulin Degludec) 35 unit SUB-Q DAILY [facility] Last Admin: 05/02/20 21:29 Dose: Not Given Documented by: Ondansetron HCl (Zofran Odt) 4 mg SL Q4-6HP PRN; Protocol PRN Reason: Nausea And Vomiting Last Admin: 05/02/20 01:07 Dose: 4 mg Documented by: Ondansetron HCl (Zofran) 4 mg IV Q4-6HP PRN; Protocol PRN Reason: Nausea And Vomiting Dapsone Cream 1 dose TOPICAL QDAY [facility] Diclofenac Sodium (Gel) 1 dose TOPICAL DAILY [facility] Polyethylene Glycol (Miralax) 17 gm PO DAILYP PRN PRN Reason: Constipation Potassium Chloride (Klor-Con) 40 meq PO DAILYP PRN PRN Reason: K+ < 3.5 Senna/Docusate Sodium (Senna Plus Tablet) 1 tab PO HS [facility] Last Admin: 05/02/20 21:29 Dose: Not Given Documented by: Sodium Chloride (Saline Flush) 10 ml IV Q8 [facility] Last Admin: 05/03/20 05:26 Dose: 10 ml Documented by: ABG Interpretation ABG results: 05/01/20 05/02/20 05/02/20 23:11 05:31 12:03 ABG Methemoglobin TNP 0.2 L 0.3 L VBG pH 7.01 7.12 7.32 VBG pCO2 18.2 22.0 22.0 VBG pO2 65.3 42.0 134.5 VBG HCO3 4.5 7.0 11.0 VBG Total CO2 5.1 7.7 11.7 VBG O2 Saturation TNP 66.9 95.5 VBG Base Excess -25 L -21 L -13 L A/P Narrative A/P Narrative: A: *DKA: -gradual clinical improvement *AG Met acidosis: 2/2 above, improved -AG resolved but still has Non-gap acidosis reflecting bicarb deficiency. *Multiple electrolyte maladies: 2/2 above *KAYODE: 2/2 prerenal state -resolved *SIRS: 2/2 DKA -No clear source of infection Plan: -started home basal insulin, cont ssi -bicarb -Aggressive electrolyte replacement -DC antibiotics in 24 hours if no evidence of infection -start clear diet in AM -ppx: lovenox Full code Critical care time spent on management of DKA in excess of 35 minutes on management of DKA Time Spent With Patient Time: Total time spent is greater than 50% in coordination of care (as documented) at patient's floor/unit and/or counseling patient:
[2020-05-03] MEDS: cefTRIAXone 2 GM in DEXTROSE 5% IN WATER 50 ML IV SCH (07:58)
[2020-05-03] MEDS: MULTIVIT,THER IRON,CA,FA & MIN 1 TABLET PO SCH (08:05)
--- NOTE | 2020-05-03 08:57 | XRay Report ---
CLINICAL INFORMATION: Dyspnea COMPARISON: Portable chest 05/01/2020 TECHNIQUE: PA and Lateral views FINDINGS: The heart size, mediastinum and pulmonary vessels are unremarkable. The lungs are clear. There are no effusions. The bones and soft tissues are within normal limits. CONSULTING NURSE shunt catheters remain in stable position without breakage IMPRESSION: Normal chest. Interpreted and Authenticated by: Eric Maynadr 05/03/20
[2020-05-03] MEDS ORDERED: PHOSPHORUS 250 MG TABLET PO SCH (09:00)
[2020-05-03] MEDS ORDERED: ENOXAPARIN 40 MG/0.4 ML SYRINGE SQ SCH (09:00)
[2020-05-03] MEDS ORDERED: DAPSONE TOPICAL SCH (09:00)
[2020-05-03] MEDS ORDERED: SODIUM BICARBONATE VIAL 150 MEQ in WATER FOR INJECTION,STERILE 850 ML IV SCH (09:15)
--- NOTE | 2020-05-03 10:18 | Discharge Summary ---
Discharge Provider Provider Patient information: Note initiated : 05/03/20 at 10:17 am Service Date, if different from initiated Date: [] Patient: Yue Lucas 24 y/o F admitted on 05/01/20 for short of breath. Chief Complaint: [] Date of admission: 05/01/20 22:27 Discharge date: 05/04/20 Primary care physician: Elsy Linn DO Consults: 05/01/20 Consult to Physician [CONS] Stat Comment: Consulting Provider: Cal Pennington Reason For Exam: Physician to Consult Discharge Meds Discharge Medications Home Medications insulin aspart U-100 52 - 70 units SQ DAILY 04/03/19 [History Confirmed 05/02/20 Last Taken Unknown] dapsone 1 applic TOPICAL QDAY 02/23/20 [History Confirmed 05/02/20 Last Taken Unknown] L norgest/e.estradiol-e.estrad 0.15 mg-30 mcg (84)/10 mcg(7) tabs,3mos 1 tab PO QDAY 03/04/20 [History Confirmed 05/02/20 Last Taken Unknown] diclofenac sodium 1 % topical gel 1 g TOPICAL DAILY 03/22/20 [History Confirmed 05/02/20 Last Taken Unknown] glucagon 1 mg/0.2 mL subcutaneous syringe 1 mg SUB-Q Q20M PRN #0.4 ml 03/22/20 [Rx Confirmed 05/02/20 Last Taken Unknown] insulin degludec 100 unit/mL (3 mL) subcutaneous pen 35 unit SUBCUT DAILY ml 03/22/20 [History Confirmed 05/02/20 Last Taken Unknown] terbinafine HCl 1 % topical cream 1 applic TOPICAL BID #15 g 04/20/20 [Rx Confirmed 05/02/20 Last Taken Unknown] COURSE Hospital Course Hospital course: History of present illness: Ms. Lucas is a 24 year old F With a history of insulin-dependent diabeteswho recently was admitted with DKA secondary to insulin pump failure And was discharged on 02/23. Patient has been doing well using basal prandial insulin awaiting her new insulin pump. She has been doing well until the day prior to presentation. While at work patient noted increasing shortness of breath along with weakness and symptoms of increased polyuria and increased thirst. She associated nausea but denies any fever or sick contacts. She denies headache, photophobia joint pain or rash or diarrhea or dysuria. She presents to the ER where initial work-up was consistent with severe DKA with pH 7.1. White count 11.5, potassium 5.6, anion gap 33, creatinine 1.5 and bicarb at 5. Patient was rapidly started on crystalloid/insulin drip and subsequently hospital service was consulted At the time of evaluation patient is very anxious, labored rapid shallow breathing. Appears extremely dehydrated. Endorses to history as above. Does not recollect the exact onset of symptoms roughly between 24 to 36 hours. 05/02-severe DKA currently on insulin drip. Bicarb persistently low at 5. However symptomatic and clinically improving. Anion gap down from 33-21. White count 12.9, potassium 4.5, sodium 131, creatinine down to 0.9 from 1.5. Resting comfortably. On 5 units an hour insulin drip. Continue serial electrolytes/VBG/DKA management per protocol. Remains critically ill. 05/03 Switched to subcutaneous long-acting insulin last night. Sugars well controlled. Patient feeling much better. 05/04 Patient doing well. [place] acidosis resolved. We will replete potassium this morning. Patient feeling well and blood glucose controlled. Stable for discharge. A: *DKA: *AG Met acidosis and non-gap met acidosis: 2/2 above, improved *Multiple electrolyte maladies: 2/2 above *KAYODE: 2/2 prerenal state Discharge diagnosis: DKA metabolic acidosis electrolyte abnormalities acute kidney injury Secondary discharge diagnosis: Diabetes Time Spent with Patient Time attestation: Total time spent providing and/or coordinating discharge services: Time spent: Greater than 30 minutes EXAM Constitutional Vitals: Temp Pulse Resp BP Pulse Ox 98.3 F 99 H 20 119/106 100 05/03/20 07:28 05/03/20 05:01 05/03/20 07:22 05/03/20 09:27 05/03/20 09:27 Discharge Data Data Completed and Pending Labs on day of discharge: Labs from last 24 hours 05/03/20 05/03/20 05/03/20 04:57 04:56 04:56 WBC 5.7 RBC 4.02 Hgb 11.8 L Hct 35.9 L MCV 89.3 MCH 29.4 MCHC 32.9 RDW 14.6 H Plt Count 196 MPV 10.2 Neut % (Auto) 49.4 Lymph % (Auto) 35.4 [place] % (Auto) 12.9 H Eos % (Auto) 1.6 Baso % (Auto) 0.7 Lymph # (Auto) 2.01 [place] # (Auto) 0.73 Eos # (Auto) 0.09 Baso # (Auto) 0.04 Absolute Neutrophils 2.81 ABG Methemoglobin VBG pH VBG pCO2 VBG pO2 VBG HCO3 VBG Total CO2 VBG O2 Saturation VBG Base Excess Carboxyhemoglobin Total Hemoglobin Sodium Potassium Chloride Carbon Dioxide Anion Gap BUN Creatinine GFR Calculation Glucose Uric Acid Calcium Phosphorus Magnesium Total Bilirubin Direct Bilirubin GGT AST ALT Alkaline Phosphatase Lactate Dehydrogenase Total Protein Albumin Globulin Albumin/Globulin Ratio Triglycerides Beta-Hydroxybutyrate 1.65 H Procalcitonin 0.28 H 05/03/20 05/02/20 05/02/20 04:55 17:17 12:03 WBC RBC Hgb Hct MCV MCH MCHC RDW Plt Count MPV Neut % (Auto) Lymph % (Auto) [place] % (Auto) Eos % (Auto) Baso % (Auto) Lymph # (Auto) [place] # (Auto) Eos # (Auto) Baso # (Auto) Absolute Neutrophils ABG Methemoglobin 0.3 L VBG pH 7.32 VBG pCO2 22.0 VBG pO2 134.5 VBG HCO3 11.0 VBG Total CO2 11.7 VBG O2 Saturation 95.5 VBG Base Excess -13 L Carboxyhemoglobin 3.4 H Total Hemoglobin 12.4 L Sodium 137 131 L Potassium 3.2 L 3.5 Chloride 111 H 106 Carbon Dioxide 13 L 12 L Anion Gap 13.0 13.0 BUN 5 L 6 Creatinine 0.7 0.8 GFR Calculation 120 102 Glucose 225 H 165 H Uric Acid 4.1 Calcium 8.5 L 8.5 L Phosphorus 1.6 L Magnesium 1.7 Total Bilirubin 0.4 Direct Bilirubin < 0.2 GGT 15 AST 8 ALT 8 Alkaline Phosphatase 99 Lactate Dehydrogenase 106 L Total Protein 5.6 L Albumin 3.3 Globulin 2.3 Albumin/Globulin Ratio 1.4 Triglycerides 125 Beta-Hydroxybutyrate Procalcitonin 05/02/20 12:03 WBC RBC Hgb Hct MCV MCH MCHC RDW Plt Count MPV Neut % (Auto) Lymph % (Auto) [place] % (Auto) Eos % (Auto) Baso % (Auto) Lymph # (Auto) [place] # (Auto) Eos # (Auto) Baso # (Auto) Absolute Neutrophils ABG Methemoglobin VBG pH VBG pCO2 VBG pO2 VBG HCO3 VBG Total CO2 VBG O2 Saturation VBG Base Excess Carboxyhemoglobin Total Hemoglobin Sodium 129 L Potassium 4.2 Chloride 104 Carbon Dioxide 11 L Anion Gap 14.0 BUN 7 Creatinine 0.9 GFR Calculation 88 Glucose 227 H Uric Acid 6.2 Calcium 8.2 L Phosphorus 3.2 Magnesium 1.7 Total Bilirubin 0.4 Direct Bilirubin < 0.2 GGT 14 AST 10 ALT 9 Alkaline Phosphatase 105 Lactate Dehydrogenase 119 L Total Protein 6.3 Albumin 3.8 Globulin 2.5 Albumin/Globulin Ratio 1.5 Triglycerides 82 Beta-Hydroxybutyrate Procalcitonin Discharge Plan Patient/Caregiver Discharge Instructions Activity: increase activity as tolerated Diet: Consistent Carbohydrate Instructions: Dehydration (GEN), Diabetic Ketoacidosis (GEN), Type 1 Diabetes Management for Adolescents (GEN) Activity Restrictions/Additional Instructions: This discharge packet is provided to you to help keep you informed about your care. We want to ensure you get everything you need when you go home. You will also be receiving a call from us in a few days to follow up with you and see how you are doing since your discharge. This gives us a chance to listen to any concerns you maybe experiencing since you were discharged or any additional needs you may have, as well as providing us feedback on your care experience. We strive to always provide excellent care and thank you for your feedback and for choosing [facility]. Prescriptions: Continued L norgest/e.estradiol-e.estrad [Simpesse] 0.15 mg-30 mcg (84)/10 mcg (7) tablets,dose pack,3 month 1 tab PO QDAY RF: 0 diclofenac sodium 1 % gel 1 g TOPICAL DAILY RF: 0 glucagon 1 mg/0.2 mL syringe 1 mg SUB-Q Q20M PRN (Reason: hypoglycemia) Qty: 0.4 RF: 2 terbinafine HCl [Antifungal (terbinafine)] 1 % cream 1 applic TOPICAL BID Qty: 15 RF: 2 insulin aspart U-100 100/ML solution 52 - 70 units SQ DAILY RF: 0 insulin degludec 100 unit/mL (3 mL) insulin pen 35 unit subcut DAILY RF: 0 dapsone 7.5 % gel with pump 1 applic TOPICAL QDAY RF: 0 Discontinued ampicillin 500 mg capsule 500 mg PO BID RF: 0 Follow Up Plan Follow up with: Elsy Linn DO [Primary Care Provider] - 05/11/20 10:00 am (Please check in at 9:45 am) Patient Disposition: Home, Self-Care Prognosis: Fair Overall status at discharge: patient is progressing back to baseline Discharge Orders: Discharge Order (Routine); Ordered 05/04/20 Ordered By: Dudley Loya
[2020-05-03] MEDS ORDERED: BISACODYL 10 MG SUPP.RECT PR PRN (10:27)
[2020-05-03] MEDS ORDERED: DEXTROSE 50% 50 ML VIAL IV PRN (10:27)
[2020-05-03] MEDS ORDERED: ONDANSETRON 4 MG ODT TABLET SL PRN (10:27)
[2020-05-03] MEDS ORDERED: ACETAMINOPHEN 325 MG TABLET PO PRN (10:27)
[2020-05-03] MEDS: INSULIN DEGLUDEC 35 UNIT SUB-Q SCH (10:27)
[2020-05-03] MEDS ORDERED: ONDANSETRON 4 MG/2 ML VIAL IV PRN (10:27)
[2020-05-03] MEDS ORDERED: MELATONIN 3 MG TABLET PO PRN (10:27)
[2020-05-03] MEDS ORDERED: POTASSIUM CHLORIDE 20 MEQ PACKET PO PRN (10:27)
[2020-05-03] MEDS ORDERED: ACETAMINOPHEN 650 MG/65 ML BAG IV PRN (10:27)
[2020-05-03] MEDS ORDERED: DEXTROSE 31 GM ORAL.SUSP PO PRN (10:27)
[2020-05-03] MEDS ORDERED: POLYETHYLENE GLYCOL 3350 17 GM PACKET PO PRN (10:27)
[2020-05-03] MEDS ORDERED: MAGNESIUM SULFATE 2 GM/50 ML BAG IV PRN (10:27)
[2020-05-03] MEDS ORDERED: POTASSIUM CHLORIDE 40 MEQ in DEXTROSE 5% IN WATER 500 ML IV PRN (10:27)
[2020-05-03] MEDS: PHOSPHORUS 250 MG TABLET PO SCH ×3 (13:32→20:08)
[2020-05-03] MEDS ORDERED: INSULIN GLARGINE, HUMAN 1 UNIT/0.01 ML SQ SCH ×2 (21:00)
[2020-05-03] MEDS ORDERED: SENNOSIDES/DOCUSATE SODIUM 1 TAB TABLET PO SCH (21:00)
[2020-05-04] MEDS: INSULIN LISPRO 1 UNIT/0.01 ML UNIT SQ SCH ×4 (04:08→11:45)
[2020-05-04] MEDS ORDERED: SODIUM BICARBONATE VIAL 150 MEQ in WATER FOR INJECTION,STERILE 850 ML IV SCH (05:15)
[2020-05-04] MEDS: 0.9 % SODIUM CHLORIDE 10 ML SYRINGE IV SCH (05:28)
[2020-05-04 07:22] LABS: ALT/SGPT 11 U/L (<40); AST/SGOT 19 U/L (<32); Albumin 3.2 gm/dL (3.2-5.2); Albumin/Globulin Ratio 1.2 (1.0-2.3); Alkaline Phosphatase 90 U/L (39-117); Bilirubin,Direct < 0.2 mg/dL (<0.3); Bilirubin,Total 0.4 mg/dL (0.1-1.0); Blood Urea Nitrogen 7 mg/dL (6-20); Calcium 8.3 mg/dL (8.6-10.4); Carbon Dioxide 23 mmol/L (22-30); Chloride 104 mmol/L (96-108); Globulin 2.6 gm/dL (2.2-3.7); Glomerular Filtration Rate 120; Glucose 203 mg/dL (70-105); Lactate Dehydrogenase 170 U/L (135-225); Phosphorous 3.9 mg/dL (2.5-4.5); Triglycerides 169 mg/dL (<150); Uric Acid 2.6 mg/dL (2.5-8.0)
[2020-05-04] MEDS ORDERED: POTASSIUM CHLORIDE 20 MEQ TABLET PO ONE (07:51)
[2020-05-04] MEDS ORDERED: POTASSIUM CHLORIDE 20 MEQ in DEXTROSE 5% IN WATER 250 ML IV ONE (07:51)
[2020-05-04] MEDS ORDERED: INSULIN LISPRO 1 UNIT/0.01 ML UNIT SQ ONE (08:30)
[2020-05-04] MEDS ORDERED: MULTIVIT,THER IRON,CA,FA & MIN 1 TABLET PO SCH (09:00)
[2020-05-04] MEDS ORDERED: ENOXAPARIN 40 MG/0.4 ML SYRINGE SQ SCH (09:00)
[2020-05-04] MEDS ORDERED: DAPSONE TOPICAL SCH (09:00)
[2020-05-04] MEDS ORDERED: cefTRIAXone 2 GM in DEXTROSE 5% IN WATER 50 ML IV SCH (09:00)
== END 2020-05-04 13:05 | disposition home or self-care (01) | DRG 638 ==
LOC: ED 18:14 → ICU 22:27
PROVIDERS: ADMIT Internal Medicine; ATTEND Internal Medicine

== ENCOUNTER 2021-01-15 11:18 | Inpatient (IN) ==
[2021-01-15] MEDS ORDERED: 0.9 % SODIUM CHLORIDE 1,000 ML IV ONE ×3 (11:40→13:58)
--- NOTE | 2021-01-15 11:52 | Emergency Department Note ---
HPI General Chief complaint: Blood Sugar Problem Stated complaint: elevated blood sugar Time Seen by Provider: 01/15/21 11:26 Source: patient and EMS Mode of arrival: EMS Limitations: no limitations History of Present Illness HPI Narrative: 25-year-old female with past medical history of type 1 diabetes presenting with elevated blood sugar. Patient states her blood sugar was elevated this morning but cannot tell me how high it was. She also feels nauseous and fatigued. States she has been compliant with her insulin. Denies any fever, cough, chest pain, shortness of breath, abdominal pain, or vomiting. She does state that it hurts when she urinates. Denies hematuria, blood in stool, or melena. She has been admitted in the past for DKA. Related Data Home Medications Medication Instructions Recorded Confirmed dapsone 1 applic TOPICAL QDAY 02/23/20 11/30/20 diclofenac sodium 1 % topical gel 1 g TOPICAL DAILY 03/22/20 11/30/20 insulin degludec 100 unit/mL (3 35 unit SUBCUT QDAY ml 11/30/20 11/30/20 mL) subcutaneous pen Previous Rx's Medication Instructions Recorded glucagon 1 mg/0.2 mL subcutaneous 1 mg SUB-Q Q20M PRN #0.4 ml 03/22/20 syringe terbinafine HCl 1 % topical cream 1 applic TOPICAL BID #15 g 04/20/20 L norgest/E estradiol-E estrad 1 tab PO QDAY #182 tab 05/31/20 0.15 mg-30 mcg (84)/10 mcg(7) tabs,3mos blood sugar diagnostic #300 ea 06/22/20 acetone (urine) test #25 ea 07/07/20 glucagon 3 mg/actuation nasal spray 3 mg INTRANASAL ONCE PRN #2 ea 07/07/20 blood-glucose sensor #3 ea 12/08/20 blood-glucose transmitter #1 ea 12/08/20 insulin aspart U-100 100 unit/mL See Rx Instructions .ROUTE 01/13/21 subcutaneous solution .COMPLEX #30 milliliter Allergies Allergy/AdvReac Type Severity Reaction Status Date / Time No Known Drug Allergies Allergy Verified 01/15/21 11:27 Review of Systems ROS ROS Narrative: Narrative: Constitutional: Denies fever and chills Eyes: Denies vision change ENT ED: Denies ear pain and throat pain Cardiovascular: Denies chest pain Respiratory: Denies shortness of breath and cough Gastrointestinal: Reports nausea; Denies abdominal pain, vomiting and melena Genitourinary: Reports dysuria; Denies frequency and hematuria Musculoskeletal: Denies back pain and joint swelling Integumentary: Denies rash and lesions Neurological: Denies headache and weakness Psychiatric: Denies anxiety and depression Endocrine: Denies fatigue and heat or cold intolerance Hematological/Lymphatic: Denies easy bleeding and easy bruising PFSH Narrative Patient History Narrative: Narrative: Medical/Surgical/Family History All Active Problems (Updated 01/15/21 @ 14:21 by Sam Salinas MD) Diabetic ketoacidosis (Acute) Stomach pain (Acute) Yeast infection of the skin (Acute) Hospital discharge follow-up (Acute) DKA (diabetic ketoacidoses) (Acute) Hyperkalemia (Acute) Elevated serum creatinine (Acute) Acute delirium (Acute) Diabetic ketoacidosis (Acute) Toenail fungus (Acute) History of surgical procedure (Acute) 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 Currently has shunt placed. 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 Reports this was not cancer (05/01/2020) History of surgical procedure Shunt Placement x2(05/1996 & 1997) Shunt revision x3(04/2009 & 2018) Family History Grandfather Colon cancer Maternal High blood pressure Grandmother Type 2 diabetes mellitus High blood pressure Mother High blood pressure Social History Smoking Status: Never smoker Alcohol Intake Frequency: does not drink Substance Use: does not use Exam Narrative Narrative: Narrative: General Limitations: no limitations General appearance: Present alert and other (Appears uncomfortable) Head Head: Present atraumatic and normocephalic Eye Eye: Present normal appearance, PERRL and EOMI; Absent scleral icterus and conjunctival injection ENT ENT: Present normal oropharynx, mucous membranes dry and other (Poor dentition) Neck Neck: Present full ROM and trachea midline; Absent meningismus, lymphadenopathy and thyromegaly Chest Chest: Present symmetric chest wall rise Respiratory Respiratory: Present normal lung sounds bilaterally and other (Tachypneic); Absent wheezes, stridor and accessory muscle use Cardiovascular Cardiovascular: Present normal rhythm and tachycardia; Absent systolic murmur and diastolic murmur Adbominal Abdominal: Present soft; Absent distention, tenderness, guarding, rebound, rigidity, organomegaly and mass Extremities Extremities: Absent pedal edema, pretibial edema and calf tenderness Back Back: Absent CVA tenderness (R), CVA tenderness (L) and spinous process tenderness Neurological Neurological: Present alert and oriented X3 Psychiatric Psychiatric: Present normal affect and normal mood Skin Skin: Present warm (WNL) and dry Course Reevaluation(s) Reevaluation #1: Patient's breathing and vital signs are improving after normal saline boluses and IV insulin. Time: 14:16 Consultations Consultation #1: Dr. Martinez, hospitalist Time: 14:20 Vital Signs Vital signs: Vital Signs Temperature 99.0 F 01/15/21 11:18 Pulse Rate 124 H 01/15/21 11:18 Respiratory Rate 20 01/15/21 11:18 Blood Pressure 146/67 01/15/21 11:18 Pulse Oximetry (%) 100 01/15/21 11:18 Temperature 99.0 F 01/15/21 11:18 Pulse Rate 121 H 01/15/21 14:10 Respiratory Rate 41 H 01/15/21 14:10 Blood Pressure 138/74 01/15/21 14:10 Pulse Oximetry (%) 100 01/15/21 14:10 [facility] MDM Narrative Medical decision making narrative: 25-year-old female presenting with hyperglycemia. She is tachypneic, tachycardic, and appears dry. Concern for DKA given her history. 2 L normal saline ordered. Will obtain labs, chest x-ray, UA, and reassess. Labs consistent with DKA as patient's glucose is 820, anion gap is 37, pH 7.09, and lactate of 7. Potassium is 5.9 no significant EKG changes. Chest x-ray with no focal infiltrates. UA with no signs of infection. An additional liter of normal saline ordered. Patient given 10 units of IV insulin and started on insulin drip at 8 units/h. Patient discussed with hospitalist, Dr. Martinez. Will admit to the ICU for continued treatment and monitoring. Lab Data Lab results reviewed: Yes I reviewed the patient's lab results. Result diagrams: 01/15/21 11:53 01/15/21 11:52 Labs: Lab Results 01/15/21 01/15/21 01/15/21 Range/Units 11:52 11:52 11:53 WBC 27.1 H (4.5-11.0) K/mcL RBC 4.06 (3.59-5.38) M/mcL Hgb 11.8 (11.2-15.7) g/dL Hct 39.8 (34.1-44.9) % POC Hct 38 (36-48) % MCV 98.0 (80.0-100.0) fL MCH 29.1 (26.0-34.0) pg MCHC 29.6 L (31.0-36.0) g/dL RDW 14.9 H (11.5-14.5) % Plt Count 371 (140-440) K/mcL MPV 10.5 H (7.4-10.4) fL Neut % (Auto) 88.8 H (38.0-78.0) % Lymph % (Auto) 4.8 L (15.5-49.0) % [place] % (Auto) 6.0 (1.0-12.0) % Eos % (Auto) 0 (0.0-7.0) % Baso % (Auto) 0.4 (0.0-2.0) % Lymph # (Auto) 1.29 L (1.50-4.80) K/mcL [place] # (Auto) 1.63 H (0.10-0.90) K/mcL Eos # (Auto) 0.01 (0.00-0.70) K/mcL Baso # (Auto) 0.10 (0.00-0.30) K/mcL Absolute Neutrophils 24.06 H (1.80-8.00) K/mcL POC Sodium 132 L (133-145) mEq/L Sodium 132 L (133-145) mmol/L POC Potassium 5.7 H (3.3-5.1) mEql/L Potassium 5.9 H* (3.3-5.1) mmol/L POC Chloride 106 (96-108) mEq/L Chloride 91 L (96-108) mmol/L Carbon Dioxide 4 L* (22-30) mmol/L POC Total CO2 6 L* (22-30) mmol/L Anion Gap 37.0 H (8.0-16.0) POC BUN 30 H (6-20) mg/dL BUN 33 H (6-20) mg/dL Creatinine 1.6 H (0.6-1.1) mg/dL POC Creatinine 1.4 H (0.6-1.2) mg/dL GFR Calculation 44 Glucose 820 H* (70-105) mg/dL POC Glucose 700 H* (70-105) mg/dL Calcium 9.4 (8.6-10.4) mg/dL POC WB Ioniz Calcium 1.08 L (1.16-1.32) mmEq/L Total Bilirubin 0.7 (0.1-1.0) mg/dL AST 20 (<32) U/L ALT 17 (<40) U/L Alkaline Phosphatase 109 (39-117) U/L Total Protein 7.3 (5.9-8.4) gm/dL Albumin 4.4 (3.2-5.2) gm/dL Globulin 2.9 (2.2-3.7) gm/dL Albumin/Globulin Ratio 1.5 (1.0-2.3) Beta-Hydroxybutyrate 8.05 H (<0.27) mmol/L Urine Color Urine Appearance (Clear) Urine pH (5.0-9.0) Ur Specific [place] (1.000-1.035) Urine Protein (Negative) mg/dL Urine Glucose (UA) (Negative) mg/dL Urine Ketones (Negative) mg/dL Urine Occult Blood (Negative) mg/dL Urine Nitrate (Negative) Urine Bilirubin (Negative) mg/dL Urine Urobilinogen mg/dL Ur Leukocyte Esterase (Negative) /uL Urine RBC (0-3) /hpf Urine WBC (0-4) /hpf Ur Squamous Epith Cells (0-4) /hpf Urine Bacteria (0) /hpf Urine Mucus (None) /hpf Ur Culture Indicated? 01/15/21 Range/Units 12:20 WBC (4.5-11.0) K/mcL RBC (3.59-5.38) M/mcL Hgb (11.2-15.7) g/dL Hct (34.1-44.9) % POC Hct (36-48) % MCV (80.0-100.0) fL MCH (26.0-34.0) pg MCHC (31.0-36.0) g/dL RDW (11.5-14.5) % Plt Count (140-440) K/mcL MPV (7.4-10.4) fL Neut % (Auto) (38.0-78.0) % Lymph % (Auto) (15.5-49.0) % [place] % (Auto) (1.0-12.0) % Eos % (Auto) (0.0-7.0) % Baso % (Auto) (0.0-2.0) % Lymph # (Auto) (1.50-4.80) K/mcL [place] # (Auto) (0.10-0.90) K/mcL Eos # (Auto) (0.00-0.70) K/mcL Baso # (Auto) (0.00-0.30) K/mcL Absolute Neutrophils (1.80-8.00) K/mcL POC Sodium (133-145) mEq/L Sodium (133-145) mmol/L POC Potassium (3.3-5.1) mEql/L Potassium (3.3-5.1) mmol/L POC Chloride (96-108) mEq/L Chloride (96-108) mmol/L Carbon Dioxide (22-30) mmol/L POC Total CO2 (22-30) mmol/L Anion Gap (8.0-16.0) POC BUN (6-20) mg/dL BUN (6-20) mg/dL Creatinine (0.6-1.1) mg/dL POC Creatinine (0.6-1.2) mg/dL GFR Calculation Glucose (70-105) mg/dL POC Glucose (70-105) mg/dL Calcium (8.6-10.4) mg/dL POC WB Ioniz Calcium (1.16-1.32) mmEq/L Total Bilirubin (0.1-1.0) mg/dL AST (<32) U/L ALT (<40) U/L Alkaline Phosphatase (39-117) U/L Total Protein (5.9-8.4) gm/dL Albumin (3.2-5.2) gm/dL Globulin (2.2-3.7) gm/dL Albumin/Globulin Ratio (1.0-2.3) Beta-Hydroxybutyrate (<0.27) mmol/L Urine Color Straw Urine Appearance Clear (Clear) Urine pH 6.0 (5.0-9.0) Ur Specific [place] 1.020 (1.000-1.035) Urine Protein Negative (Negative) mg/dL Urine Glucose (UA) >=500 A (Negative) mg/dL Urine Ketones 80 A (Negative) mg/dL Urine Occult Blood Negative (Negative) mg/dL Urine Nitrate Negative (Negative) Urine Bilirubin Negative (Negative) mg/dL Urine Urobilinogen Negative mg/dL Ur Leukocyte Esterase Negative (Negative) /uL Urine RBC < 1 (0-3) /hpf Urine WBC 1 (0-4) /hpf Ur Squamous Epith Cells 0 (0-4) /hpf Urine Bacteria None (0) /hpf Urine Mucus Few A (None) /hpf Ur Culture Indicated? No Radiology Data Radiology results reviewed: Yes I reviewed the patient's radiology results. Radiology results narrative: Chest x-ray: No focal infiltrates or effusions, per my read. EKG Data EKG #1: EKG attestation: Yes I reviewed and interpreted this EKG. and Yes There are no EKG findings of acute coronary syndrome EKG results narrative: Sinus tachycardia at [address] elevation or depression. No T wave inversions. Interpretation: no acute changes Pulse Oximetry Data Pulse Ox %: 100 Interpretation: Normal CC TIME Critical Care Time Critical Care Time: Yes Total Critical Care Time: 40 Attestation: I spent 40 minutes of critical care time, not including procedures, in the treatment and stabilization of this patient who was at risk of severe deterioration or due to DKA. Discharge Plan Patient/Caregiver Discharge Instructions Pt seen by ORDER EDITOR/PA only: No Clinical Impression: Diabetic ketoacidosis Qualifiers: Diabetes mellitus type: type 1 Diabetes mellitus complication detail: without coma Qualified Code(s): E10.10 - Type 1 diabetes mellitus with ketoacidosis without coma Patient Disposition: Xfer As Inpt ([facility]) Condition: Critical Follow up with: Elsy Linn DO [Primary Care Provider] - Prescriptions: No Action L norgest/e.estradiol-e.estrad [Simpesse] 0.15 mg-30 mcg (84)/10 mcg (7) tablets,dose pack,3 month 1 tab PO QDAY Qty: 182 RF: 1 (DME) Ketone Urine Test Strip See Rx Instructions .ROUTE .MEDSUPPLY Qty: 25 RF: 0 Baqsimi 3 mg/actuation spray,non-aerosol 3 mg intranasal ONCE PRN (Reason: glucose emergency) Qty: 2 RF: 0 (DME) Dexcom G6 Sensor Device See Rx Instructions .Route Qty: 3 RF: 5 (DME) Dexcom G6 Transmitter Device See Rx Instructions .Route Qty: 1 RF: 5 insulin aspart U-100 100 unit/mL solution See Rx Instructions .ROUTE .COMPLEX Qty: 30 RF: 2 diclofenac sodium 1 % gel 1 g TOPICAL DAILY RF: 0 glucagon 1 mg/0.2 mL syringe 1 mg SUB-Q Q20M PRN (Reason: hypoglycemia) Qty: 0.4 RF: 2 terbinafine HCl [Antifungal (terbinafine)] 1 % cream 1 applic TOPICAL BID Qty: 15 RF: 2 (DME) Contour Next Test Strips Strip See Rx Instructions .ROUTE .MEDSUPPLY Qty: 300 RF: 0 Tresiba FlexTouch U-100 100 unit/mL (3 mL) insulin pen 35 unit subcut QDAY RF: 0 dapsone 7.5 % gel with pump 1 applic TOPICAL QDAY RF: 0
[2021-01-15 12:11] LABS: POC Blood Urea Nitrogen 30 mg/dL (6-20); POC CO2 6 mmol/L (22-30); POC Calcium, Ionized 1.08 mmEq/L (1.16-1.32); POC Chloride 106 mEq/L (96-108); POC Creatinine 1.4 mg/dL (0.6-1.2); POC Glucose, Random 700 mg/dL (70-105); POC Hematocrit 38 % (36-48); POC Potassium 5.7 mEql/L (3.3-5.1); POC Sodium 132 mEq/L (133-145)
[2021-01-15] MEDS ORDERED: INSULIN REGULAR, HUMAN 1 UNIT/0.01 ML UNIT IV ONE (12:25)
[2021-01-15] MEDS ORDERED: INSULIN REGULAR, HUMAN 50 UNIT in 0.9 % SODIUM CHLORIDE 99.5 ML IV SCH ×2 (12:30→16:50)
[2021-01-15 12:43] LABS: Basophils % (Auto) 0.4 % (0.0-2.0); Eosinophils # (Auto) 0.01 K/mcL (0.00-0.70); Eosinophils % (Auto) 0 % (0.0-7.0); Hematocrit 39.8 % (34.1-44.9); Hemoglobin 11.8 g/dL (11.2-15.7); Lymphocytes # (Auto) 1.29 K/mcL (1.50-4.80); Lymphocytes % (Auto) 4.8 % (15.5-49.0); Mean Corpuscular HGB Conc 29.6 g/dL (31.0-36.0); Mean Platelet Volume 10.5 fL (7.4-10.4); Monocytes # (Auto) 1.63 K/mcL (0.10-0.90); Neutrophils % (Auto) 88.8 % (38.0-78.0); Platelet Count 371 K/mcL (140-440); RBC 4.06 M/mcL (3.59-5.38); Red Cell Distribution Width 14.9 % (11.5-14.5); WBC 27.1 K/mcL (4.5-11.0)
[2021-01-15 13:17] LABS: ALT/SGPT 17 U/L (<40); AST/SGOT 20 U/L (<32); Albumin 4.4 gm/dL (3.2-5.2); Albumin/Globulin Ratio 1.5 (1.0-2.3); Alkaline Phosphatase 109 U/L (39-117); Bilirubin,Total 0.7 mg/dL (0.1-1.0); Blood Urea Nitrogen 33 mg/dL (6-20); Calcium 9.4 mg/dL (8.6-10.4); Carbon Dioxide 4 mmol/L (22-30); Chloride 91 mmol/L (96-108); Globulin 2.9 gm/dL (2.2-3.7); Glomerular Filtration Rate 44; Glucose 820 mg/dL (70-105)
[2021-01-15 13:41] LABS: Beta Hydroxybutyrate 8.05 mmol/L (<0.27)
[2021-01-15 13:42] LABS: Appearance,Urine CLEAR (Clear); Bilirubin,Urine Negative (Negative); Color,Urine STRAW; Culture Indicated,Urine No; Glucose,Urine (UA) >=500 mg/dL (Negative); Ketones,Urine 80 mg/dL (Negative); Leukocyte Esterase,Urine Negative /uL (Negative); Mucus,Urine FEW /hpf; Nitrate,Urine Negative (Negative); Protein,Urine Negative (Negative); Urine Blood Negative (Negative); Urine RBC < 1 /hpf (0-3); Urine Squamous Epithelial Cell 0 /hpf (0-4); Urine WBC 1 /hpf (0-4); Urobilinogen,Urine Negative
--- NOTE | 2021-01-15 15:01 | XRay Report ---
HISTORY: Diabetic ketoacidosis FINDINGS: Lungs are clear and well expanded without evidence of pneumonia or edema. Heart size is normal. There is no pleural effusion or adenopathy. Patient has bilateral ventricular peritoneal shunt catheters. The one on the right appears old. It is disrupted above the clavicle and there are calcifications forming along the right side catheter. Left-side catheter is intact and extends from the brain down into the abdomen. IMPRESSION: Normal chest Interpreted and Authenticated by: Brett Cervantes 01/15/21
[2021-01-15] MEDS ORDERED: 0.9 % SODIUM CHLORIDE 500 ML IV ONE (15:10)
[2021-01-15] MEDS ORDERED: 0.9 % SODIUM CHLORIDE 1,000 ML IV SCH (15:15)
[2021-01-15] MEDS: 0.9 % SODIUM CHLORIDE 1,000 ML IV SCH ×4 (15:22→17:53)
[2021-01-15] MEDS ORDERED: ACETAMINOPHEN 325 MG TABLET PO ONE (15:55)
[2021-01-15 15:58] LABS: Blood Urea Nitrogen 31 mg/dL (6-20); Calcium 8.4 mg/dL (8.6-10.4); Carbon Dioxide 5 mmol/L (22-30); Chloride 107 mmol/L (96-108); Glomerular Filtration Rate 52; Glucose 457 mg/dL (70-105)
[2021-01-15] MEDS ORDERED: ACETAMINOPHEN 325 MG TABLET PO PRN (16:50)
[2021-01-15] MEDS ORDERED: ONDANSETRON 4 MG/2 ML VIAL IV PRN (16:50)
[2021-01-15] MEDS: DEXTROSE 5%-1/2NS 1,000 ML IV SCH (17:00)
[2021-01-15] MEDS: 0.9 % SODIUM CHLORIDE 250 ML IV SCH (17:37)
[2021-01-15 17:39] LABS: ABG Methemoglobin 0.3 % (0.4-1.5); Total Hemoglobin 10.7 gm/Dl (12.0-15.0); VBG Base Excess -16 (-2-2); VBG HCO3 8.3 mmol/L (24.0-28.0); VBG Oxygen Saturation 93.5 % (40.0-70.0); VBG PCO2 17.8 mmHg (41.0-51.0); VBG PH 7.29 U (7.32-7.42); VBG PO2 120.8 mmHg (25.0-40.0); VBG Total CO2 8.9 mmol/L (25.0-29.0)
[2021-01-15] MEDS: 0.45 % SODIUM CHLORIDE 1,000 ML IV SCH ×2 (17:51→21:06)
[2021-01-15 18:15] LABS: Blood Urea Nitrogen 29 mg/dL (6-20); Calcium 8.8 mg/dL (8.6-10.4); Carbon Dioxide 7 mmol/L (22-30); Chloride 111 mmol/L (96-108); Glomerular Filtration Rate 56; Glucose 369 mg/dL (70-105)
--- NOTE | 2021-01-15 18:21 | Internal Med History&Physical ---
HPI History of Present Illness Patient information: Note initiated : 01/15/21 at 6:21 pm Service Date, if different from initiated Date: [] Patient: Yue Lucas a 25 y/o F admitted on 01/15/21 for elevated blood sugar. Chief Complaint: high CBG, dyspnea History of present illness: Ms. 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 History is somewhat limited due to the patient's tachypnea secondary to her acidosis. The patient recently switched to a new insulin pump, was seen about 8 days ago and diabetes education. She notes for about the last 3 days her glucoses have been running high. She has only using her insulin pump at this time. She presents to the emergency department where she is found to be significantly tachypneic. VBG showed pH 7.09 and PCO2 <19. Anion gap was 37 with serum b icarbonate 4 on basic metabolic panel. Creatinine is elevated at 1.6. Beta hydroxybutyrate positive at 8.04 and blood glucose 820. She received IV insulin bolus, started on insulin drip and significant fluid resuscitation. By the time I see her, she is still significantly tachypneic able to answer yes or no and give a few word responses. She denies any fevers or chills, no cough or sputum production, no nausea or vomiting or abdominal pain, no dysuria. Said no chest pain or tightness. She is being admitted for treatment of DKA. 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 Currently has shunt placed. 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 Reports this was not cancer (05/01/2020) History of surgical procedure Shunt Placement x2(05/1996 & 1997) Shunt revision x3(04/2009 & 2018) Family History Grandfather Colon cancer Maternal High blood pressure Grandmother Type 2 diabetes mellitus High blood pressure Mother High blood pressure Social History marital status: single occupational status: employed occupation: [employer] smoking status: Never smoker alcohol intake frequency: does not drink substance use type: does not use MEDS/ALLERGIES Home Medications and Allergies Home Medications Medication Instructions Recorded Confirmed Type dapsone 1 applic TOPICAL QDAY 02/23/20 11/30/20 History diclofenac sodium 1 % topical gel 1 g TOPICAL DAILY 03/22/20 11/30/20 History glucagon 1 mg/0.2 mL subcutaneous 1 mg SUB-Q Q20M PRN #0.4 ml 03/22/20 08/30/20 Rx syringe terbinafine HCl 1 % topical cream 1 applic TOPICAL BID #15 g 04/20/20 11/30/20 Rx L norgest/E estradiol-E estrad 1 tab PO QDAY #182 tab 05/31/20 11/30/20 Rx 0.15 mg-30 mcg (84)/10 mcg(7) tabs,3mos blood sugar diagnostic #300 ea 06/22/20 08/30/20 Rx acetone (urine) test #25 ea 07/07/20 08/30/20 Rx glucagon 3 mg/actuation nasal spray 3 mg INTRANASAL ONCE PRN #2 ea 07/07/20 08/30/20 Rx insulin degludec 100 unit/mL (3 35 unit SUBCUT QDAY ml 11/30/20 11/30/20 History mL) subcutaneous pen blood-glucose sensor #3 ea 12/08/20 Rx blood-glucose transmitter #1 ea 12/08/20 Rx insulin aspart U-100 100 unit/mL See Rx Instructions .ROUTE 01/13/21 Rx subcutaneous solution .COMPLEX #30 milliliter Allergies Allergy/AdvReac Type Severity Reaction Status Date / Time No Known Drug Allergies Allergy Verified 01/15/21 11:27 EXAM Constitutional Vitals: Temp Pulse Resp BP Pulse Ox 98.8 F 110 H 30 H 97/56 100 01/15/21 16:40 01/15/21 16:53 01/15/21 17:02 01/15/21 17:02 01/15/21 17:02 GENERAL: Alert, oriented, in acute distress, ill-appearing. HEENT: Pupils equal at 4 mm, conjunctiva clear, no scleral icterus. Hearing grossly intact. Oropharynx with dry mucous membranes, tongue midline. NECK: Supple without meningismus, no thyromegaly RESPIRATORY: Rapid deep respirations with breath sounds clear bilaterally. No wheezes or rhonchi. Respiratory effort is moderately labored. CARDIOVASCULAR: Tachycardic, regular, no murmur gallop or rub. No peripheral edema. Carotid pulses 2+ GI: Abdomen soft, nontender, no guarding or rebound. Bowel sounds are present. MUSCULOSKELETAL: No joint erythema or swelling, normal range of motion in all extremities. SKIN: Intact, warm, dry. Skin turgor normal. NEUROLOGIC: Cranial nerves II through XII grossly intact. Muscle mass normal. Strength 5/5 in the upper and lower extremities. Sensation intact to light touch bilaterally. PSYCHIATRIC: Alert, oriented x3, mood and affect appropriate for situation, normal insight. DATA Data Completed and Pending Labs: Labs from last 24 hours 01/15/21 01/15/21 01/15/21 17:15 17:15 14:55 WBC RBC Hgb Hct POC Hct MCV MCH MCHC RDW Plt Count MPV Neut % (Auto) Lymph % (Auto) [place] % (Auto) Eos % (Auto) Baso % (Auto) Lymph # (Auto) [place] # (Auto) Eos # (Auto) Baso # (Auto) Absolute Neutrophils ABG Methemoglobin 0.3 L VBG pH 7.29 L VBG pCO2 17.8 L* VBG pO2 120.8 H VBG HCO3 8.3 L* VBG Total CO2 8.9 L* VBG O2 Saturation 93.5 H VBG Base Excess -16 L Carboxyhemoglobin 4.6 H Total Hemoglobin 10.7 L POC Sodium Sodium 140 140 POC Potassium Potassium 4.7 4.8 POC Chloride Chloride 111 H 107 Carbon Dioxide 7 L* 5 L* POC Total CO2 Anion Gap 22.0 H 28.0 H POC BUN BUN 29 H 31 H Creatinine 1.3 H 1.4 H POC Creatinine GFR Calculation 56 52 Glucose 369 H 457 H* POC Glucose Calcium 8.8 8.4 L POC WB Ioniz Calcium Magnesium 2.2 Total Bilirubin AST ALT Alkaline Phosphatase Troponin T Total Protein Albumin Globulin Albumin/Globulin Ratio Beta-Hydroxybutyrate Urine Color Urine Appearance Urine pH Ur Specific [place] Urine Protein Urine Glucose (UA) Urine Ketones Urine Occult Blood Urine Nitrate Urine Bilirubin Urine Urobilinogen Ur Leukocyte Esterase Urine RBC Urine WBC Ur Squamous Epith Cells Urine Bacteria Urine Mucus Ur Culture Indicated? 01/15/21 01/15/21 01/15/21 14:55 12:20 11:53 WBC 27.1 H RBC 4.06 Hgb 11.8 Hct 39.8 POC Hct MCV 98.0 MCH 29.1 MCHC 29.6 L RDW 14.9 H Plt Count 371 MPV 10.5 H Neut % (Auto) 88.8 H Lymph % (Auto) 4.8 L [place] % (Auto) 6.0 Eos % (Auto) 0 Baso % (Auto) 0.4 Lymph # (Auto) 1.29 L [place] # (Auto) 1.63 H Eos # (Auto) 0.01 Baso # (Auto) 0.10 Absolute Neutrophils 24.06 H ABG Methemoglobin VBG pH VBG pCO2 VBG pO2 VBG HCO3 VBG Total CO2 VBG O2 Saturation VBG Base Excess Carboxyhemoglobin Total Hemoglobin POC Sodium Sodium POC Potassium Potassium POC Chloride Chloride Carbon Dioxide POC Total CO2 Anion Gap POC BUN BUN Creatinine POC Creatinine GFR Calculation Glucose POC Glucose Calcium POC WB Ioniz Calcium Magnesium Total Bilirubin AST ALT Alkaline Phosphatase Troponin T 0.02 Total Protein Albumin Globulin Albumin/Globulin Ratio Beta-Hydroxybutyrate Urine Color Straw Urine Appearance Clear Urine pH 6.0 Ur Specific [place] 1.020 Urine Protein Negative Urine Glucose (UA) >=500 A Urine Ketones 80 A Urine Occult Blood Negative Urine Nitrate Negative Urine Bilirubin Negative Urine Urobilinogen Negative Ur Leukocyte Esterase Negative Urine RBC < 1 Urine WBC 1 Ur Squamous Epith Cells 0 Urine Bacteria None Urine Mucus Few A Ur Culture Indicated? No 01/15/21 01/15/21 11:52 11:52 WBC RBC Hgb Hct POC Hct 38 MCV MCH MCHC RDW Plt Count MPV Neut % (Auto) Lymph % (Auto) [place] % (Auto) Eos % (Auto) Baso % (Auto) Lymph # (Auto) [place] # (Auto) Eos # (Auto) Baso # (Auto) Absolute Neutrophils ABG Methemoglobin VBG pH VBG pCO2 VBG pO2 VBG HCO3 VBG Total CO2 VBG O2 Saturation VBG Base Excess Carboxyhemoglobin Total Hemoglobin POC Sodium 132 L Sodium 132 L POC Potassium 5.7 H Potassium 5.9 H* POC Chloride 106 Chloride 91 L Carbon Dioxide 4 L* POC Total CO2 6 L* Anion Gap 37.0 H POC BUN 30 H BUN 33 H Creatinine 1.6 H POC Creatinine 1.4 H GFR Calculation 44 Glucose 820 H* POC Glucose 700 H* Calcium 9.4 POC WB Ioniz Calcium 1.08 L Magnesium Total Bilirubin 0.7 AST 20 ALT 17 Alkaline Phosphatase 109 Troponin T Total Protein 7.3 Albumin 4.4 Globulin 2.9 Albumin/Globulin Ratio 1.5 Beta-Hydroxybutyrate 8.05 H Urine Color Urine Appearance Urine pH Ur Specific [place] Urine Protein Urine Glucose (UA) Urine Ketones Urine Occult Blood Urine Nitrate Urine Bilirubin Urine Urobilinogen Ur Leukocyte Esterase Urine RBC Urine WBC Ur Squamous Epith Cells Urine Bacteria Urine Mucus Ur Culture Indicated? Impressions Impressions: EKG: Sinus tachycardia 128 without acute changes Imaging and Cardiology Chest x-ray: Status: image reviewed by me Additional comments: Clear lung devine, no infiltrate A/P Narrative A/P Narrative: 25-year-old with long history of type 1 diabetes and prior history of DKA presents with elevated blood glucose, dyspnea is found to be in DKA. DKA -Unclear what led to DKA, though underdosing from new insulin pump possible -No evidence of infection on chest x-ray or urinalysis and no other infectious symptoms -No evidence of injury on EKG and troponin negative -Significant acidosis with pH 7.09 on VBG Lactic acidosis -Suspect this is secondary to DKA and not sepsis Acute kidney injury -Creatinine 1.6 at presentation -Suspect secondary to prerenal causes and dehydration from DKA and diuretic effect of hyperglycemia Hyponatremia -Likely pseudohyponatremia from hyper glycemia Hyperkalemia -Likely secondary to extracellular fluid shift in setting of acidosis Plan: Inpatient admission DKA protocol Follow electrolytes and replete as needed Follow anion gap, continue insulin infusion until gap is closed Check hemoglobin A1c Prophylaxis: Enoxaparin CODE STATUS: Full code
[2021-01-15] MEDS ORDERED: INSULIN REGULAR, HUMAN 1 UNIT/0.01 ML UNIT ONE ×2 (18:28→23:50)
[2021-01-15 21:28] LABS: ABG Methemoglobin 0 % (0.4-1.5); Total Hemoglobin 9.9 gm/Dl (12.0-15.0); VBG Base Excess -10 (-2-2); VBG HCO3 13.1 mmol/L (24.0-28.0); VBG Oxygen Saturation 94.5 % (40.0-70.0); VBG PCO2 22.5 mmHg (41.0-51.0); VBG PH 7.38 U (7.32-7.42); VBG PO2 174.1 mmHg (25.0-40.0); VBG Total CO2 13.8 mmol/L (25.0-29.0)
[2021-01-15 21:59] LABS: Blood Urea Nitrogen 28 mg/dL (6-20); Calcium 8.6 mg/dL (8.6-10.4); Carbon Dioxide 12 mmol/L (22-30); Chloride 113 mmol/L (96-108); Glomerular Filtration Rate 62; Glucose 233 mg/dL (70-105)
[2021-01-15] MEDS: 0.9 % SODIUM CHLORIDE 10 ML SYRINGE IV SCH (22:19)
[2021-01-16] MEDS: 0.45 % SODIUM CHLORIDE 1,000 ML IV SCH ×6 (01:35→17:45)
[2021-01-16] MEDS ORDERED: INSULIN REGULAR, HUMAN 50 UNIT in 0.9 % SODIUM CHLORIDE 99.5 ML IV SCH ×3 (01:58→14:00)
[2021-01-16 02:23] LABS: Blood Urea Nitrogen 27 mg/dL (6-20); Calcium 8.7 mg/dL (8.6-10.4); Carbon Dioxide 12 mmol/L (22-30); Chloride 117 mmol/L (96-108); Glomerular Filtration Rate 77; Glucose 100 mg/dL (70-105)
[2021-01-16] MEDS: DEXTROSE 5%-1/2NS 1,000 ML IV SCH (03:08)
[2021-01-16] MEDS ORDERED: 0.9 % SODIUM CHLORIDE 1,000 ML IV SCH ×2 (03:40→03:45)
[2021-01-16] MEDS: 0.9 % SODIUM CHLORIDE 250 ML IV SCH (04:12)
[2021-01-16] MEDS ORDERED: DEXTROSE 50% 50 ML VIAL IV ONE ×2 (05:00→05:09)
[2021-01-16] MEDS: 0.9 % SODIUM CHLORIDE 10 ML SYRINGE IV SCH ×3 (06:32→23:10)
[2021-01-16 07:01] LABS: Estimated Average Glucose(eAG) 217 mg/dL; Hemoglobin A1C 9.2 % Hgb (4.0-6.0)
[2021-01-16 07:06] LABS: Blood Urea Nitrogen 26 mg/dL (6-20); Calcium 8.1 mg/dL (8.6-10.4); Carbon Dioxide 12 mmol/L (22-30); Chloride 116 mmol/L (96-108); Glomerular Filtration Rate 77; Glucose 67 mg/dL (70-105)
[2021-01-16] MEDS ORDERED: PANTOPRAZOLE 40 MG TABLET PO SCH (07:30)
--- NOTE | 2021-01-16 08:15 | Internal Med Progress Note ---
SUBJECTIVE Subjective Patient information: Note initiated : 01/16/21 at 8:14 am Service Date, if different from initiated Date: [] Patient: Yue Lucas a 25 y/o F admitted on 01/15/21 for elevated blood sugar. Chief Complaint: Follow-up DKA Interval history: Ms. 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 History is somewhat limited due to the patient's tachypnea secondary to her acidosis. The patient recently switched to a new insulin pump, was seen about 8 days ago and diabetes education. She notes for about the last 3 days her glucoses have been running high. She has only using her insulin pump at this time. She presents to the emergency department where she is found to be significantly tachypneic. VBG showed pH 7.09 and PCO2 <19. Anion gap was 37 with serum bicarbonate 4 on basic metabolic panel. Creatinine is elevated at 1.6. Beta hydroxybutyrate positive at 8.04 and blood glucose 820. She received IV insulin bolus, started on insulin drip and significant fluid resuscitation. By the time I see her, she is still significantly tachypneic able to answer yes or no and give a few word responses. She denies any fevers or chills, no cough or sputum production, no nausea or v omiting or abdominal pain, no dysuria. Said no chest pain or tightness. She is being admitted for treatment of DKA. 01/16: Feels much improved this morning. Anion gap is closed, but insulin drip had to be held early a.m. due to hypoglycemia and now mildly worsened. Feels hungry and ready to try a diet. She thinks that her insulin pump may have had a bad site which led to this episode of DKA. Creatinine has improved to 1.0. Phos mildly low at 2.3. Constitutional Vitals: Vital Signs Temp Pulse Resp BP Pulse Ox 99.1 F H 110 H 26 H 93/50 100 01/16/21 08:02 01/15/21 16:53 01/16/21 08:05 01/16/21 08:02 01/16/21 08:05 Period Temp Pulse Resp BP Sys/Brooke Pulse Ox Last 24 Hr 98.3 F-99.1 F 110-124 17-41 69-146/43-109 84-100 Intake and Output 01/15/21 01/16/21 01/16/21 21:59 05:59 13:59 Intake Total 2406 1327 1009 Output Total 745 255 105 Balance 1661 1072 904 Weight 185 lb Intake & Output: Intake & Output 01/15/21 01/16/21 01/16/21 21:59 05:59 13:59 Intake Total 2406 1327 1009 Output Total 745 255 105 Balance 1661 1072 904 Weight 185 lb Intake: IV 2406 1327 1009 Sodium Chloride 0.45% 1,000 ml 1000 @ 125 mls/hr IV .Q8H ALYSHA Rx#: [id number] Sodium Chloride 0.9% 1,000 ml @ 1892 1000 500 mls/hr IV .Q2H ALYSHA Rx#: [id number] Sodium Chloride 0.9% 250 ml @ 211 20 mls/hr IV .[id number] ALYSHA Rx#: [id number] Dextrose 5%-1/2Ns IV Solution 1 410 ,000 ml @ 100 mls/hr IV .Q10H ALYSHA Rx#:[id number] HumuLIN R 50 UNIT In Sodium 104 116 9 Chloride 0.9% 99.5 ml @ UNIT/ HR IV DUR ALYSHA Rx#:[id number] Output: Urine Catheter Amount 745 255 105 Other: Urine Appearance Clear Clear Clear Uretheral (Chopra) Clear Urine Color Bright Yellow Bright Yellow Bright Yellow Uretheral (Chopra) Bright Yellow Urine Odor Normal Normal Uretheral (Chopra) Normal GENERAL: Sitting up in bed no acute distress, nontoxic-appearing, speaking in full sentences RESPIRATORY: Respiratory rate is normal and effort is unlabored, lungs are clear CARDIOVASCULAR: Regular rate and rhythm ABDOMEN: Soft, nontender EXTREMITIES: No edema NEURO: Alert, oriented x3, moves all extremities OBJ DATA Labs CBC & Chem 7: 01/16/21 04:54 01/16/21 04:54 Labs: Abnormal Lab Results 01/16/21 01/16/21 01/16/21 04:54 04:54 01:01 WBC MCHC RDW MPV Neut % (Auto) Lymph % (Auto) Lymph # (Auto) [place] # (Auto) Absolute Neutrophils ABG Methemoglobin VBG pH VBG pCO2 VBG pO2 VBG HCO3 VBG Total CO2 VBG O2 Saturation VBG Base Excess Carboxyhemoglobin Total Hemoglobin POC Sodium Sodium POC Potassium Potassium Chloride 116 H 117 H Carbon Dioxide 12 L 12 L POC Total CO2 Anion Gap POC BUN BUN 26 H 27 H Creatinine POC Creatinine Glucose 67 L POC Glucose Hemoglobin A1c 9.2 H Calcium 8.1 L POC WB Ioniz Calcium Beta-Hydroxybutyrate Urine Glucose (UA) Urine Ketones Urine Mucus 01/15/21 01/15/21 01/15/21 21:00 21:00 17:15 WBC MCHC RDW MPV Neut % (Auto) Lymph % (Auto) Lymph # (Auto) [place] # (Auto) Absolute Neutrophils ABG Methemoglobin 0 L 0.3 L VBG pH 7.29 L VBG pCO2 22.5 L 17.8 L* VBG pO2 174.1 H 120.8 H VBG HCO3 13.1 L 8.3 L* VBG Total CO2 13.8 L 8.9 L* VBG O2 Saturation 94.5 H 93.5 H VBG Base Excess -10 L -16 L Carboxyhemoglobin 4.6 H 4.6 H Total Hemoglobin 9.9 L 10.7 L POC Sodium Sodium POC Potassium Potassium Chloride 113 H Carbon Dioxide 12 L POC Total CO2 Anion Gap POC BUN BUN 28 H Creatinine 1.2 H POC Creatinine Glucose 233 H POC Glucose Hemoglobin A1c Calcium POC WB Ioniz Calcium Beta-Hydroxybutyrate Urine Glucose (UA) Urine Ketones Urine Mucus 01/15/21 01/15/21 01/15/21 17:15 14:55 12:20 WBC MCHC RDW MPV Neut % (Auto) Lymph % (Auto) Lymph # (Auto) [place] # (Auto) Absolute Neutrophils ABG Methemoglobin VBG pH VBG pCO2 VBG pO2 VBG HCO3 VBG Total CO2 VBG O2 Saturation VBG Base Excess Carboxyhemoglobin Total Hemoglobin POC Sodium Sodium POC Potassium Potassium Chloride 111 H Carbon Dioxide 7 L* 5 L* POC Total CO2 Anion Gap 22.0 H 28.0 H POC BUN BUN 29 H 31 H Creatinine 1.3 H 1.4 H POC Creatinine Glucose 369 H 457 H* POC Glucose Hemoglobin A1c Calcium 8.4 L POC WB Ioniz Calcium Beta-Hydroxybutyrate Urine Glucose (UA) >=500 A Urine Ketones 80 A Urine Mucus Few A 01/15/21 01/15/21 01/15/21 11:53 11:52 11:52 WBC 27.1 H MCHC 29.6 L RDW 14.9 H MPV 10.5 H Neut % (Auto) 88.8 H Lymph % (Auto) 4.8 L Lymph # (Auto) 1.29 L [place] # (Auto) 1.63 H Absolute Neutrophils 24.06 H ABG Methemoglobin VBG pH VBG pCO2 VBG pO2 VBG HCO3 VBG Total CO2 VBG O2 Saturation VBG Base Excess Carboxyhemoglobin Total Hemoglobin POC Sodium 132 L Sodium 132 L POC Potassium 5.7 H Potassium 5.9 H* Chloride 91 L Carbon Dioxide 4 L* POC Total CO2 6 L* Anion Gap 37.0 H POC BUN 30 H BUN 33 H Creatinine 1.6 H POC Creatinine 1.4 H Glucose 820 H* POC Glucose 700 H* Hemoglobin A1c Calcium POC WB Ioniz Calcium 1.08 L Beta-Hydroxybutyrate 8.05 H Urine Glucose (UA) Urine Ketones Urine Mucus Meds: Medications Acetaminophen (Acetaminophen 325 Mg Tablet) 650 mg PO Q4-6HP PRN; Protocol PRN Reason: Per Pain Protocol/Fever > 101 Diagnostic Test (Pha) (Accu-Chek 1 Each Strip) 1 each FS Q1 [facility] Last Admin: 01/16/21 07:00 Dose: 1 each Documented by: Enoxaparin Sodium (Enoxaparin 40 Mg/0.4 Ml Syringe) 40 mg SQ DAILY [facility] Last Admin: 01/16/21 08:08 Dose: 40 mg Documented by: Sodium Chloride (Sodium Chloride 0.45%) 1,000 mls @ 125 mls/hr IV .Q8H [facility] Last Admin: 01/16/21 06:22 Dose: 125 mls/hr Documented by: Dextrose/Sodium Chloride (Dextrose 5%-1/2ns Iv Solution) 1,000 mls @ 100 mls/hr IV .Q10H [facility] Last Admin: 01/16/21 03:08 Dose: Not Given Documented by: Sodium Chloride (Sodium Chloride 0.9%) 250 mls @ 20 mls/hr IV .[id number] [facility] Last Admin: 01/16/21 04:12 Dose: 20 mls/hr Documented by: Insulin Human Regular 50 unit/ (Sodium Chloride) 100 mls @ 0 mls/hr IV Q12H LAYSHA; Protocol Ondansetron HCl (Ondansetron 4 Mg/2 Ml Vial) 4 mg IV Q4-6HP PRN; Protocol PRN Reason: Nausea And Vomiting Last Admin: 01/16/21 06:36 Dose: 4 mg Documented by: Pantoprazole Sodium (Pantoprazole 40 Mg Tablet) 40 mg PO QAMAC [facility] Last Admin: 01/16/21 06:36 Dose: 40 mg Documented by: Sodium Chloride (0.9 % Sodium Chloride 10 Ml Syringe) 10 ml IV Q8 [facility] Last Admin: 01/16/21 06:32 Dose: Not Given Documented by: ABG Interpretation ABG results: 01/15/21 01/15/21 17:15 21:00 ABG Methemoglobin 0.3 L 0 L VBG pH 7.29 L 7.38 VBG pCO2 17.8 L* 22.5 L VBG pO2 120.8 H 174.1 H VBG HCO3 8.3 L* 13.1 L VBG Total CO2 8.9 L* 13.8 L VBG O2 Saturation 93.5 H 94.5 H VBG Base Excess -16 L -10 L A/P Narrative A/P Narrative: 25-year-old with long history of type 1 diabetes and prior history of DKA presents with elevated blood glucose, dyspnea is found to be in DKA. DKA -Suspect bad placement of insulin pump versus malfunction as etiology of DKA -No evidence of infection on chest x-ray or urinalysis and no other infectious symptoms -WBC remains elevated, though suspect stress response and not infection without source -No evidence of injury on EKG and troponin negative -Significant acidosis with pH 7.09 on VBG at presentation, improved with insulin and fluids -Mild opening of A.m. 01/16 -Beginning subcu Lantus regimen along with carb counting and sliding scale insulin 01/16 Lactic acidosis -Suspect this is secondary to DKA and not sepsis Acute kidney injury -Creatinine 1.6 at presentation -Suspect secondary to prerenal causes and dehydration from DKA and diuretic effect of hyperglycemia -Creatinine down to 1.0 on 01/16 Hyponatremia -Likely pseudohyponatremia from hyperglycemia -Resolved Hyperkalemia -Likely secondary to extracellular fluid shift in setting of acidosis -Resolved Plan: * Discontinue insulin infusion * Begin Lantus 35 units every morning, Humalog 1 unit / 8 g of carbs plus sliding scale insulin * Recheck BMP and anion gap at 1400 * Replete phosphorus p.o. * If remains stable, likely discharge in 24 hours Prophylaxis: Enoxaparin CODE STATUS: Full code Time Spent With Patient Time: Total time spent is greater than 50% in coordination of care (as documented) at patient's floor/unit and/or counseling patient: QUALITY VTE Deep Vein Thrombosis/Pulmonary Embolism Present on Admission: No
--- NOTE | 2021-01-16 08:48 | EKG ---
[facility] Test Date: 2021-01-15 Pat Name: Yue Lucas Department: ED Room: Gender: Female Practice Performance Manager: GERALDINE : 1995 Requested By: Sam Salinas Order Number: [id number] Reading MD: Jason Magana Measurements Intervals Gary Rate: 121 P: 79 MI: 128 QRS: 84 QRSD: 108 T: 46 QT: 348 QTc: 494 Interpretive Statements SINUS TACHYCARDIA Electronically Signed On 01-16-2021 8:48:11 PDT by Jason Magana /store/[email or web address]/[id number]
[2021-01-16] MEDS ORDERED: DEXTROSE 31 GM ORAL.SUSP PO PRN ×2 (08:52→09:18)
[2021-01-16] MEDS ORDERED: DEXTROSE 50% 50 ML VIAL IV PRN ×2 (08:52→09:18)
[2021-01-16] MEDS ORDERED: INSULIN GLARGINE, HUMAN 1 UNIT/0.01 ML SQ SCH (09:00)
[2021-01-16] MEDS ORDERED: ENOXAPARIN 40 MG/0.4 ML SYRINGE SQ SCH (09:00)
[2021-01-16] MEDS ORDERED: ACETAMINOPHEN 325 MG TABLET PO PRN (09:18)
[2021-01-16] MEDS ORDERED: ONDANSETRON 4 MG/2 ML VIAL IV PRN (09:18)
[2021-01-16 09:52] LABS: Albumin 3.9 gm/dL (3.2-5.2); Calcium 8.8 mg/dL (8.6-10.4); Phosphorous 2.3 mg/dL (2.5-4.5)
[2021-01-16] MEDS: INSULIN LISPRO 1 UNIT/0.01 ML UNIT SQ SCH ×6 (10:12→23:09)
[2021-01-16 10:30] LABS: Basophils # (Auto) 0.08 K/mcL (0.00-0.30); Basophils % (Auto) 0.3 % (0.0-2.0); Eosinophils # (Auto) 0.01 K/mcL (0.00-0.70); Eosinophils % (Auto) 0 % (0.0-7.0); Hematocrit 32.3 % (34.1-44.9); Hemoglobin 10.1 g/dL (11.2-15.7); Lymphocytes # (Auto) 1.75 K/mcL (1.50-4.80); Lymphocytes % (Auto) 7.1 % (15.5-49.0); Mean Cell Volume 91.2 fL (80.0-100.0); Mean Corpuscular HGB Conc 31.3 g/dL (31.0-36.0); Mean Platelet Volume 9.8 fL (7.4-10.4); Monocytes # (Auto) 2.68 K/mcL (0.10-0.90); Monocytes % (Auto) 10.8 % (1.0-12.0); Neutrophils % (Auto) 81.8 % (38.0-78.0); Platelet Count 292 K/mcL (140-440); RBC 3.54 M/mcL (3.59-5.38); Red Cell Distribution Width 15.2 % (11.5-14.5); WBC 24.8 K/mcL (4.5-11.0)
[2021-01-16] MEDS ORDERED: PHOSPHORUS 250 MG TABLET PO ONE (10:41)
[2021-01-16] MEDS ORDERED: INSULIN LISPRO 1 UNIT/0.01 ML UNIT SQ SCH ×2 (11:30)
[2021-01-16 15:06] LABS: Blood Urea Nitrogen 23 mg/dL (6-20); Calcium 8.2 mg/dL (8.6-10.4); Carbon Dioxide 10 mmol/L (22-30); Chloride 107 mmol/L (96-108); Glomerular Filtration Rate 77; Glucose 228 mg/dL (70-105)
[2021-01-16] MEDS ORDERED: LACTATED RINGERS 1,000 ML IV ONE (17:29)
[2021-01-17] MEDS: 0.45 % SODIUM CHLORIDE 1,000 ML IV SCH ×2 (03:28→08:17)
[2021-01-17] MEDS: 0.9 % SODIUM CHLORIDE 10 ML SYRINGE IV SCH ×2 (06:52→12:38)
[2021-01-17] MEDS ORDERED: PANTOPRAZOLE 40 MG TABLET PO SCH (07:30)
[2021-01-17 07:36] LABS: Albumin 3.2 gm/dL (3.2-5.2); Calcium 8.5 mg/dL (8.6-10.4); Phosphorous 1.9 mg/dL (2.5-4.5)
[2021-01-17 07:54] LABS: Basophils # (Auto) 0.04 K/mcL (0.00-0.30); Basophils % (Auto) 0.3 % (0.0-2.0); Eosinophils # (Auto) 0.05 K/mcL (0.00-0.70); Eosinophils % (Auto) 0.4 % (0.0-7.0); Hemoglobin 9.5 g/dL (11.2-15.7); Lymphocytes # (Auto) 1.61 K/mcL (1.50-4.80); Lymphocytes % (Auto) 12.6 % (15.5-49.0); Mean Corpuscular HGB Conc 32.8 g/dL (31.0-36.0); Mean Platelet Volume 9.7 fL (7.4-10.4); Monocytes # (Auto) 0.83 K/mcL (0.10-0.90); Monocytes % (Auto) 6.5 % (1.0-12.0); Neutrophils % (Auto) 80.2 % (38.0-78.0); Platelet Count 229 K/mcL (140-440); RBC 3.26 M/mcL (3.59-5.38); Red Cell Distribution Width 15.6 % (11.5-14.5); WBC 12.8 K/mcL (4.5-11.0)
[2021-01-17] MEDS: INSULIN LISPRO 1 UNIT/0.01 ML UNIT SQ SCH ×4 (08:13→12:36)
[2021-01-17] MEDS ORDERED: INSULIN GLARGINE, HUMAN 1 UNIT/0.01 ML SQ SCH (09:00)
[2021-01-17] MEDS ORDERED: ENOXAPARIN 40 MG/0.4 ML SYRINGE SQ SCH (09:00)
[2021-01-17] MEDS ORDERED: POTASSIUM PHOSPHATE IV ONE (10:45)
[2021-01-17] MEDS ORDERED: DEXTROSE 5% IV ONE (10:45)
[2021-01-17] MEDS ORDERED: WATER IV ONE (10:45)
[2021-01-17] MEDS ORDERED: 0.9 % SODIUM CHLORIDE 1,000 ML IV SCH (12:15)
--- NOTE | 2021-01-17 12:27 | Discharge Summary ---
Discharge Provider Provider Patient information: Note initiated : 01/17/21 at 12:27 pm Service Date, if different from initiated Date: [] Patient: Yue Lucas 25 y/o F admitted on 01/15/21 for elevated blood sugar. Chief Complaint: new insulin pump not working Date of admission: 01/15/21 16:40 Discharge date: 01/17/21 Primary care physician: Elsy Linn DO Admitting clinician: Madhavi Martinez Attending physician on admission: Madhavi Martinez Consults: 01/15/21 Consult to Physician [CONS] Stat Comment: Consulting Provider: Madhavi Martinez Reason For Exam: Physician to Consult Attending physician on discharge: Uvaldo Shearer Discharging clinician: Uvaldo Shearer Discharge Meds Discharge Medications Home Medications dapsone 1 applic TOPICAL QDAY 02/23/20 [History Confirmed 01/17/21 Last Taken Unknown] diclofenac sodium 1 % topical gel 1 g TOPICAL DAILY PRN 03/22/20 [History Confirmed 01/17/21 Last Taken Unknown] glucagon 1 mg/0.2 mL subcutaneous syringe 1 mg SUB-Q Q20M PRN #0.4 ml 03/22/20 [Rx Confirmed 01/17/21 Last Taken Unknown] terbinafine HCl 1 % topical cream 1 applic TOPICAL BID #15 g 04/20/20 [Rx Confirmed 01/17/21 Last Taken Unknown] L norgest/E estradiol-E estrad 0.15 mg-30 mcg (84)/10 mcg(7) tabs,3mos 1 tab PO QDAY #182 tab 05/31/20 [Rx Confirmed 01/17/21 Last Taken Unknown] blood sugar diagnostic #300 ea 06/22/20 [Rx Confirmed 01/17/21 Last Taken Unknown] acetone (urine) test #25 ea 07/07/20 [Rx Confirmed 01/17/21 Last Taken Unknown] glucagon 3 mg/actuation nasal spray 3 mg INTRANASAL ONCE PRN #2 ea 07/07/20 [Rx Confirmed 01/17/21 Last Taken Unknown] insulin degludec 100 unit/mL (3 mL) subcutaneous pen 35 unit SUBCUT QDAY ml 11/30/20 [History Confirmed 01/17/21 Last Taken Unknown] blood-glucose sensor #3 ea 12/08/20 [Rx Confirmed 01/17/21 Last Taken Unknown] blood-glucose transmitter #1 ea 12/08/20 [Rx Confirmed 01/17/21 Last Taken Unknown] insulin aspart U-100 100 unit/mL subcutaneous solution See Rx Instructions .ROUTE .COMPLEX #30 milliliter 01/13/21 [Rx Confirmed 01/17/21 Last Taken Unknown] COURSE Hospital Course Hospital course: 25 yo WF started on insulin drip. did well and gap closed but then some confusion on the D5 containing fluid. Ultimately resolved with additional fluid bolus and insulin lantus. Pt found the insertion catheter to be kinked so it was the culprit of the failed new insulin pump. pts phosphorus replaced today and she demonstrated good insertion and function of new site. Discharge diagnosis: DKA Secondary discharge diagnosis: Insulin Pump Reason for admission: hyperglycemia and DKA Procedures: none Pertinent studies/significant findings: DKA due to kinked insulin pump insertion catheter Complications: none Time Spent with Patient Time attestation: Total time spent providing and/or coordinating discharge services: 45 mins Time spent: Greater than 30 minutes Specific discharge activities: follow up with PCP next week if sugars high and not responsive to pump infusions. change the insertion catheter EXAM Constitutional Vitals: Temp Pulse Resp BP Pulse Ox 97.5 F 97 H 24 H 122/72 100 01/17/21 08:02 01/17/21 10:00 01/17/21 10:00 01/17/21 10:00 01/17/21 10:00 Additional findings Additional findings: GEN WDWN WF mild overweight CV RRR Lungs CTA Abd soft NTND Calves no edema skin moist warm I watched her put a new insulin pump tubing and needle site in RLQ. showed good function Discharge Data Data Completed and Pending Labs on day of discharge: Labs from last 24 hours 01/17/21 01/17/21 01/16/21 04:57 04:57 14:03 WBC 12.8 H RBC 3.26 L Hgb 9.5 L Hct 29.0 L MCV 89.0 MCH 29.1 MCHC 32.8 RDW 15.6 H Plt Count 229 MPV 9.7 Neut % (Auto) 80.2 H Lymph % (Auto) 12.6 L [place] % (Auto) 6.5 Eos % (Auto) 0.4 Baso % (Auto) 0.3 Lymph # (Auto) 1.61 [place] # (Auto) 0.83 Eos # (Auto) 0.05 Baso # (Auto) 0.04 Absolute Neutrophils 10.29 H Sodium 131 L 133 Potassium 3.9 4.5 Chloride 105 107 Carbon Dioxide 14 L 10 L* Anion Gap 12.0 16.0 BUN 16 23 H Creatinine 0.9 1.0 GFR Calculation 88 77 Glucose 250 H 228 H Calcium 8.5 L 8.2 L Phosphorus 1.9 L Albumin 3.2 Discharge Plan Patient/Caregiver Discharge Instructions Activity: increase activity as tolerated Diet: Consistent Carbohydrate Instructions: Diabetic Ketoacidosis (GEN), Meal Planning with Diabetes Exchanges (GEN) Additional Instructions: Increase activity as tolerated, continue with a consistent carbohydrate diet as suggested. Follow up with your Primary Care Physician as scheduled. This discharge packet is provided to you to help keep you informed about your care. We want to ensure you get everything you need when you go home. You will also be receiving a call from us in a few days to follow up with you and see how you are doing since your discharge. This gives us a chance to listen to any concerns you maybe experiencing since you were discharged or any additional needs you may have, as well as providing us feedback on your care experience. We strive to always provide excellent care and thank you for your feedback and for choosing [facility]. Prescriptions: No Action L norgest/e.estradiol-e.estrad [Simpesse] 0.15 mg-30 mcg (84)/10 mcg (7) tablets,dose pack,3 month 1 tab PO QDAY Qty: 182 RF: 1 (DME) Ketone Urine Test Strip See Rx Instructions .ROUTE .MEDSUPPLY Qty: 25 RF: 0 Baqsimi 3 mg/actuation spray,non-aerosol 3 mg intranasal ONCE PRN (Reason: glucose emergency) Qty: 2 RF: 0 (DME) Dexcom G6 Sensor Device See Rx Instructions .Route Qty: 3 RF: 5 (DME) Dexcom G6 Transmitter Device See Rx Instructions .Route Qty: 1 RF: 5 insulin aspart U-100 100 unit/mL solution See Rx Instructions .ROUTE .COMPLEX Qty: 30 RF: 2 diclofenac sodium 1 % gel 1 g TOPICAL DAILY PRN (Reason: Pain) RF: 0 glucagon 1 mg/0.2 mL syringe 1 mg SUB-Q Q20M PRN (Reason: hypoglycemia) Qty: 0.4 RF: 2 terbinafine HCl [Antifungal (terbinafine)] 1 % cream 1 applic TOPICAL BID Qty: 15 RF: 2 (DME) Contour Next Test Strips Strip See Rx Instructions .ROUTE .MEDSUPPLY Qty: 300 RF: 0 Tresiba FlexTouch U-100 100 unit/mL (3 mL) insulin pen 35 unit subcut QDAY RF: 0 dapsone 7.5 % gel with pump 1 applic TOPICAL QDAY RF: 0 Follow Up Plan Follow up with: Elsy Linn DO [Primary Care Provider] - 01/24/21 7:30 am Disposition: Home, Self-Care Hospital Course: admitted with DKA due to failed catheter insertion site from kink with new pump. treated with fluid and insulin drip returned to her pump after new insertion catheter today and ok for discharge at this time. Prognosis: Good Rehab Potential: Good Overall status at discharge: patient is progressing back to baseline Discharge Orders: Discharge Order (Routine); Ordered 01/17/21 Ordered By: Uvaldo MARTINEZ VTE Deep Vein Thrombosis/Pulmonary Embolism Present on Admission: No
== END 2021-01-17 17:10 | disposition home or self-care (01) | DRG 638 ==
LOC: ED 11:18 → ICU 16:40
PROVIDERS: ADMIT Internal Medicine; ATTEND Internal Medicine